=== PATIENT | female | born 1940 | race Caucasian/White ===

== ENCOUNTER 2018-03-15 09:46 | Observation (INO) | payer MEDICARE, BC ==
[2018-03-15 10:48] LABS: #Basophils 0.1 thou/uL (0.0-0.2); #Eosinphils 0.1 thou/uL (0.0-0.7); #Neutrophils 4.4 thou/uL (1.40-6.50); %Basophils 0.9 % (0.0-1.0); %Eosinophils 1.8 % (0.0-10.0); %Lymphocytes 26.2 % (21.0-51.0); %Neutrophils 58.2 % (42.0-75.0); Hemoglobin 13.6 g/dL (12.0-16.0); Mean Corpuscular Hemoglobin 32.1 pg (27.0-31.0); Mean Corpuscular Volume 97.3 fl (81.0-99.0); Mean Platelet Volume 8.9 fL (7.4-10.4); Platelet Count 243 thou/uL (130-400); RBC Distribution Width 11.6 % (11.5-14.5); Red Blood Cell (RBC) Count 4.23 mill/uL (4.20-5.40); White Blood Cell (WBC) Count 7.5 thou/uL (4.8-10.8)
[2018-03-15 10:56] LABS: INR-International Normal Ratio 1.1; Prothrombin Time 13.8 SEC (12.0-14.7)
[2018-03-15 10:57] LABS: PTT 27.5 SEC (22.9-36.1)
[2018-03-15 11:10] LABS: ALT (SGPT) 11 U/L (8-55); AST (SGOT) 16 U/L (5-34); Albumin 4.1 g/dL (3.4-4.8); Alkaline Phosphatase 94 U/L (40-150); Anion Gap 11 mmol/L (10-20); BUN (Urea Nitrogen) 10 mg/dL (9.8-20.1); Bilirubin, Total 0.6 mg/dL (0.2-1.2); Calc. Creatinine Clearance 0 mL/min (70-130); Calcium 8.9 mg/dL (7.8-10.44); Carbon Dioxide 25 mmol/L (23-31); Chloride 103 mmol/L (98-107); Estimated GFR-MDRD 83; Globulin 2.8 g/dL (2.4-3.5); Glucose 96 mg/dL (83-110); Potassium 4.7 mmol/L (3.5-5.1); Protein, Total 6.9 g/dL (6.0-8.3); Sodium 134 mmol/L (136-145)
[2018-03-15 11:15] LABS: Troponin I Less than 0.010 ng/mL (< 0.028)
--- NOTE | 2018-03-15 12:08 | CT ---
NONCONTRAST HEAD CT: HISTORY: Transient ischemic attack. COMPARISON: 05/18/2017 TECHNIQUE: A noncontrast head CT is performed from the skull base to the skull vertex. FINDINGS: No parenchymal hemorrhage. No extraaxial hematoma. No midline shift. The basilar cisterns are espinoza nt. Age appropriate atrophy. Cortical renee white matter differentiation is preserved. The ventricl es and sulci are patent and symmetric. The calvarium is intact. Adequate aeration of the sinuses an d mastoid air cells. Note is made of hyperostosis frontalis interna. IMPRESSION: No acute intracranial process. POS: [facility]
--- NOTE | 2018-03-15 13:13 | PDOC.FPRHP ---
- History of Present Illness Chief Complaint: Altered Mental Status History of Present Illness: Modesta Alexander is a 77 year old F with PMH of HTN and HLD who presented to the ED due to a 3-5 minute episode of altered mental status. She states that she has had an episode like this in the past, approximately 3 months ago, but it only lasted about 30 seconds. She states that the episode this morning occurred when she was making herself breakfast. She was standing and suddenly became "frozen" where she stood. She did not have any weakness in her limbs but she states that she just did not move. She did not have any loss of consciousness, falls, lightheadedness, imbalance. She does state that her vision felt like it got more renee. After about 3-5 min, the episode resolved spontaneously. She did not have any focal weakness, tinnitus, confusion, tongue biting, bowel or bladder incontinence. She denies any recent changes to medications or routine. The episodes were not witnessed by neither her nor her daughter. Denies any recent illnesses. Denies fever, chills, night sweats, chest pain, palpitations before, during, or after episode, n/v/d/ abdominal pain, dysuria. ED Course: In the ED, she had a negative Brain CT. Patient was seen/managed in the ED by Dr. Harris who had concern for TIA. No drugs were administered in the ED. - Allergies/Adverse Reactions Allergies Allergy/AdvReac Type Severity Reaction Status Date / Time ciprofloxacin [From Cipro] Allergy Verified 03/15/18 14:11 hydrochlorothiazide Allergy Verified 03/15/18 14:11 iodine Allergy Verified 01/22/16 11:21 levofloxacin [From Levaquin] Allergy Verified 03/15/18 14:11 Penicillins Allergy Hives Verified 01/22/16 11:21 Sulfa (Sulfonamide Allergy Verified 03/15/18 14:11 Antibiotics) - Home Medications Medication Instructions Recorded Confirmed Type Amlodipine Besylate [amLODIPine 10 mg PO DAILY 01/22/16 03/15/18 History Besylate] Aspirin [Aspirin EC] 81 mg PO BID 01/22/16 03/15/18 History Atenolol 50 mg PO HS 01/22/16 03/15/18 History Atorvastatin Calcium 1 tab PO HS 01/22/16 03/15/18 History Folic Acid [Folvite] 1 tab PO HS 01/22/16 03/15/18 History RABEprazole Sodium [Aciphex] 20 mg PO DAILY 01/22/16 03/15/18 History Ranitidine HCl 150 mg PO HS 01/22/16 03/15/18 History Montelukast Sodium [Singulair] 10 mg PO HS 03/15/18 03/15/18 History - History PMHx: HTN, HLD, GERD, Hypothyroidism PSHx: Ear surgery, Lumpectomy, Hysterectomy FHx: Noncontributory Social: Lives with and daughter is involved with her care - Review of Systems General: denies: fever/chills, weight/appetite/sleep changes, night sweats, fatigue Eyes: reports: vision changes (vision turned renee during episode). denies: eye pain ENT: denies: nasal congestion, rhinorrhea Respiratory: denies: cough, congestion, shortness of breath Cardiovascular: denies: chest pain, palpitation, edema, paroxysmal nocturnal dyspnea Gastrointestinal: denies: nausea, vomiting, diarrhea, constipation, abdominal pain, GI bleeding Genitourinary: denies: incontinence, dysuria, polyuria, discharge Skin: denies: rashes, lesions Musculoskeletal: denies: pain, tenderness, stiffness, swelling Neurological: denies: numbness, syncope, seizure, weakness Psychological: denies: anxiety, depression - Vital signs BP: 130/57 HR: 55 RR: 17 Tmax: 97.6 Pox: 95% on RA Wt: 77 kg - Physical Exam Constitutional: NAD, awake, alert and oriented, well developed HEENT: normocephalic and atraumatic, PERRLA, EOMI, no scleral icterus, grossly normal vision, TM's clear and intact, grossly normal hearing, normal nasal mucosa, MMM, oropharynx clear, good dention Neck: supple, FROM, trachea midline, no LAD, no JVD Chest: no-tender to palpation, no lesions Heart: RRR (borderline bradycardic), normal S1/S2, no murmurs/rubs/gallops, pulses present Lungs: CTAB, no respiratory distress, good air movement, no rales/rhonchi, no wheezing Abdomen: soft, non-tender, bowel sounds present, no masses/distention Musculoskeletal: normal structure, normal tone, ROM grossly normal Neurological: no focal deficit, CN II-XII intact, normal sensation Skin: no rash/lesions, good turgor, capillary refill <2 seconds Heme/Lymphatic: no unusual bruising or bleeding, no purpura, no petechia Psychiatric: normal mood and affect, good judgment and insight, intact recent and remote memory FMR H&P: Results - Labs Result Diagrams: 03/15/18 10:45 03/15/18 10:45 Lab results: WBC 7.5 thou/uL (4.8-10.8) 03/15/18 10:45 Hgb 13.6 g/dL (12.0-16.0) 03/15/18 10:45 Hct 41.2 % (36.0-47.0) 03/15/18 10:45 MCV 97.3 fl (81.0-99.0) 03/15/18 10:45 Plt Count 243 thou/uL (130-400) 03/15/18 10:45 Neutrophils % 58.2 % (42.0-75.0) 03/15/18 10:45 Sodium 134 mmol/L (136-145) L 03/15/18 10:45 Potassium 4.7 mmol/L (3.5-5.1) 03/15/18 10:45 Chloride 103 mmol/L (98-107) 03/15/18 10:45 Carbon Dioxide 25 mmol/L (23-31) 03/15/18 10:45 BUN 10 mg/dL (9.8-20.1) 03/15/18 10:45 Creatinine 0.68 mg/dL (0.6-1.1) 03/15/18 10:45 Glucose 96 mg/dL (83-110) 03/15/18 10:45 Calcium 8.9 mg/dL (7.8-10.44) 03/15/18 10:45 Total Bilirubin 0.6 mg/dL (0.2-1.2) 03/15/18 10:45 AST 16 U/L (5-34) 03/15/18 10:45 ALT 11 U/L (8-55) 03/15/18 10:45 Alkaline Phosphatase 94 U/L (40-150) 03/15/18 10:45 CK-MB (CK-2) 1.0 ng/mL (0-6.6) 03/15/18 10:45 Serum Total Protein 6.9 g/dL (6.0-8.3) 03/15/18 10:45 Albumin 4.1 g/dL (3.4-4.8) 03/15/18 10:45 FMR H&P: A/P - Problem List (1) TIA (transient ischemic attack) Current Visit: Yes Status: Acute (2) HTN (hypertension) Current Visit: Yes Status: Chronic Code(s): I10 - ESSENTIAL (PRIMARY) HYPERTENSION (3) HLD (hyperlipidemia) Current Visit: Yes Status: Chronic Code(s): E78.5 - HYPERLIPIDEMIA, UNSPECIFIED (4) GERD (gastroesophageal reflux disease) Current Visit: Yes Status: Chronic Code(s): K21.9 - GASTRO-ESOPHAGEAL REFLUX DISEASE WITHOUT ESOPHAGITIS (5) Hypothyroidism Current Visit: Yes Status: Chronic Code(s): E03.9 - HYPOTHYROIDISM, UNSPECIFIED - Plan (1) Transient Ischemic Attack: suspicion, rule out - Observation to stroke - Negative Brain CT - No candidate for brain MRI secondary to foreign bodies from ear surgery - Ordered CTA of head and neck - Consulted Neuro, appreciate recommendations - Check orthostatics, tsh, ekg, flp - Continue home aspirin (2) Asymptomatic Bradycardia - Checking 12 lead EKG, TSH, EKG - She does take beta lashae chronically - Denies any pre-syncopal sx, lightheadedness. (3) Hypertension - BP 130/57 at time of admission - continue home medications (4) Hyperlipidemia - Continue home statin (5) Hypothyroidism - Continue home levothyroxine (6) Code Status: FULL CODE Disposition/LOS: Placed on Observation on Stroke Unit, anticipated stay <48 hours. FMR H&P: Upper Level - Pertinent history 77 yr old female with PMH of HTN and HLD who presents for episode of change in her mentation only lasting about 3 minutes. No seizure like activity. No weakness, numbness, no change in speech. She recalls the event and only notices hazy vision during the episode. No one was with her during the episode. - Pertinent findings Gen: NAD, appropriately dressed and normal appearance for age ENT: TM nml, EOMI, PERRL Cardiac: Reg rhythm, bradycardic, no murmurs. Lungs: CTAB Neuro: No focal deficits, CN 2-12 intact Ext: 2+ post tibial, popliteal pulse, and dorsalis pedis bilaterally - Plan Date/Time: 03/15/18 1308 I, [Delfina Valdez], have evaluated this patient and agree with findings/plan as outlined by internal control analyst resident. Pertinent changes/additions are listed here. 77 yr old female here with brief change in mentation 1. Rule out TIA - will order for CTA head/neck - not a candidate for MRI due to ear foreign bodies from surgery - FLP -consult neuro -obs to stroke 2. bradycardia, asymptomatic -pending EKG and TSH -may need to adjust her beta lashae dose. -continuous cardiac monitoring on stroke 3. HTN -cont current home meds 4. HLD -pending FLP 5. hypothyroidism -cont home med Attending Addendum - Attending Addendum Date/Time: 03/15/18 [id number] I personally evaluated the patient and discussed the management with Dr. Valerio/ José Miguel. I agree with the History, Examination, Assessment and Plan documented above with any addition or exceptions noted below. Patient with history of multiple similar instances to events today, but presenting with 3-5 minute episode of her "brain not working". Reports that she felt like her brain "froze" and that she just stared off into the distance. Reports that she had all memory of the event. Reports that she feels like she could move, but she just didn't move. Denies focal numbness, tingling, weakness , headache, vision changes, loss of continence, slurred speech. Reports that after episode resolved she went back to her baseline, though she felt tired. BP at time of event was SBP 160s but then improved after she took her daily ASA and blood pressure medicine to SBP 135. Otherwise reports feeling well. Her exam is overall benign, and lab studies are overtly normal. CT brain shows no evidence of intracranial pathology. Patient to be obs'd in stroke unit overnight due to concern for possible TIA that has now completely resolved. Will obtain CTA head and neck as she is not candidate for MRI. Neurology consult. Wide differential including TIA, Anxiety, Infection, etc that could be contributing to symptoms. Risk stratify and treat accordingly. Continue anti- HTN therapy, ASA, and statin. Anticipate discharge tomorrow.
[2018-03-15 13:35] LABS: Bilirubin Negative (Negative); Blood, Urine Negative (Negative); Clarity CLEAR (Clear); Glucose, Urine (Dipstick) Negative (Negative); Leukocyte Small (Negative); Nitrite Positive (Negative); Protein, Urine (Dipstick) Negative (Neg-Trace); Specific Gravity, Urine 1.007 (1.002-1.036); pH, Urine 7.5 (5.0-9.0)
[2018-03-15 13:37] LABS: Bacteria/HPF Rare-Few HPF (None Seen); Hyaline Casts/LPF 0-3 HYALINE CAST LPF (0-3 Hyaline); Pathc Cast-AUWi Flag 0.14 (0-2.49); RBC/HPF 0-3 HPF (0-3); Squamous Epithelial None Seen HPF (0-3)
[2018-03-15] MEDS ORDERED: Acetaminophen 325 MG TAB PO PRN (14:09)
[2018-03-15 14:12] VITALS: BMI 29.8
[2018-03-15] MEDS: predniSONE 50 MG TAB PO SCH (19:56)
--- NOTE | 2018-03-15 20:28 | CON ---
DATE OF CONSULTATION: 03/15/2018 CONSULTING PHYSICIAN: [facility]. IMPRESSION: "Brain freeze" possibly secondary to variant of migraine. PLAN: The patient can be discharged home. HISTORY OF PRESENT ILLNESS: Ms. Alexander she is a 77-year-old woman who reports having episodes of se nsation that she describes as a brain freeze. It is fairly intense but only lasts a matter of 2 or 3 seconds at most. She had one that seemed to last a little longer than normal and so she decided to come in. She had a CT scan of the brain that was normal. Her lab work was unremarkable. She denies any history of any focal neurologic events. Her EKG showed sinus rhythm. PAST MEDICAL HISTORY: Hypertension. ALLERGIES: IODINE, PENICILLIN. SOCIAL HISTORY: No tobacco or alcohol use. FAMILY HISTORY: Noncontributory and negative for migraine. REVIEW OF SYSTEMS: Otherwise, negative for any alteration of awareness such as seizure activity, mus lily twitching. PHYSICAL EXAMINATION: GENERAL: She is a healthy appearing elderly lady, in no distress. VITAL SIGNS: Stable. She is afebrile. HEENT: Unremarkable. NECK: Supple. EXTREMITIES: No cyanosis. NEUROLOGIC: She is alert and appropriate. Her speech is fluent and clear. Exam is nonfocal. IMAGING: Reviewed. SUMMARY: I do not think that there is any significant neurologic event going on with this pleasant e lderly lady. I think she can be discharged home for outpatient followup.
[2018-03-15] MEDS ORDERED: Montelukast Sodium 10 mg Tablet PO SCH (21:00)
[2018-03-15] MEDS ORDERED: Atorvastatin Calcium 20 MG TAB PO SCH (21:00)
[2018-03-15] MEDS ORDERED: Escitalopram Oxalate 10 mg Tablet PO SCH (21:00)
[2018-03-15] MEDS: Aspirin 81 mg Enteric Coated Tablet PO SCH (22:00)
[2018-03-16] MEDS: predniSONE 50 MG TAB PO SCH ×2 (02:04→08:35)
[2018-03-16 07:34] VITALS: BP 146/65; TEMP 97.5
[2018-03-16 07:45] LABS: Free T4 (Free Thyroxine) 1.78 ng/dL (0.70-1.48)
[2018-03-16] MEDS ORDERED: diphenhydrAMINE 50 MG CAP PO SCH (08:00)
[2018-03-16] MEDS: Aspirin 81 mg Enteric Coated Tablet PO SCH (08:35)
--- NOTE | 2018-03-16 08:37 | PDOC.FM ---
- Subjective Subjective: Mrs. Alexander is seen at bedside this morning. She did great overnight. She has no complaints this morning. She denies any symptoms of weakness, zoning out , headaches, chest pain, palpitations. She has no questions or concerns. - Objective MAR Reviewed: Yes Vital Signs & Weight: Vital Signs (12 hours) Temp Pulse Resp BP Pulse Ox 03/16/18 07:34 97.5 F L 74 16 146/65 H 90 L 03/16/18 04:30 97.4 F L 80 16 168/73 H 91 L 03/15/18 23:24 97.4 F L 63 15 171/75 H 93 L Weight Weight 71.622 kg I&O: 03/15/18 03/16/18 03/17/18 06:59 06:59 06:59 Intake Total 1560 Balance 1560 Result Diagrams: 03/15/18 10:45 03/15/18 10:45 <Julian Valerio - Last Filed: 03/16/18 08:35> - Objective Vital Signs & Weight: Vital Signs (12 hours) Temp Pulse Resp BP Pulse Ox 03/16/18 08:34 74 03/16/18 08:00 97.5 F L 74 16 03/16/18 07:34 97.5 F L 74 16 146/65 H 90 L 03/16/18 04:30 97.4 F L 80 16 168/73 H 91 L 03/15/18 23:24 97.4 F L 63 15 171/75 H 93 L Weight Weight 71.622 kg I&O: 03/15/18 03/16/18 03/17/18 06:59 06:59 06:59 Intake Total 1560 360 Balance 1560 360 Result Diagrams: 03/15/18 10:45 03/15/18 10:45 <Zac Hester - Last Filed: 03/16/18 11:11> Phys Exam - Physical Examination Constitutional: NAD HEENT: moist MMs, sclera anicteric Neck: no JVD, supple, full ROM Respiratory: no wheezing, no rales, no rhonchi, clear to auscultation bilateral Cardiovascular: RRR, no significant murmur Gastrointestinal: soft, non-tender, no distention Musculoskeletal: no edema, pulses present Neurological: non-focal, normal sensation, moves all 4 limbs Psychiatric: normal affect, A&O x 3 Skin: no rash, normal turgor <Julian Valerio - Last Filed: 03/16/18 08:35> Dx/Plan (1) TIA (transient ischemic attack) Status: Acute (2) HTN (hypertension) Code(s): I10 - ESSENTIAL (PRIMARY) HYPERTENSION Status: Chronic (3) HLD (hyperlipidemia) Code(s): E78.5 - HYPERLIPIDEMIA, UNSPECIFIED Status: Chronic (4) GERD (gastroesophageal reflux disease) Code(s): K21.9 - GASTRO-ESOPHAGEAL REFLUX DISEASE WITHOUT ESOPHAGITIS Status: Chronic (5) Hypothyroidism Code(s): E03.9 - HYPOTHYROIDISM, UNSPECIFIED Status: Chronic - Plan Plan: (1) Transient Ischemic Attack: suspicion, rule out - Observation to stroke - Negative Brain CT - No candidate for brain MRI secondary to foreign bodies from ear surgery - CTA of head and neck this morning - Consulted Neuro, appreciate recommendations - Neuro has signed off, does not suspect neuro cause of symptoms - Continue home aspirin - D/c home today (2) Asymptomatic Bradycardia - She does take beta lashae chronically - Denies any pre-syncopal sx, lightheadedness. (3) Hypertension - BP 130/57 at time of admission - continue home medications (4) Hyperlipidemia - Continue home statin (5) Hypothyroidism - Continue home levothyroxine - TSH was low at 0.011 - Patient is asymptomatic, will need follow up with Dr. Soriano outpatient. <Julian Valerio - Last Filed: 03/16/18 08:35> (1) TIA (transient ischemic attack) Status: Acute (2) HTN (hypertension) Code(s): I10 - ESSENTIAL (PRIMARY) HYPERTENSION Status: Chronic (3) HLD (hyperlipidemia) Code(s): E78.5 - HYPERLIPIDEMIA, UNSPECIFIED Status: Chronic (4) GERD (gastroesophageal reflux disease) Code(s): K21.9 - GASTRO-ESOPHAGEAL REFLUX DISEASE WITHOUT ESOPHAGITIS Status: Chronic (5) Hypothyroidism Code(s): E03.9 - HYPOTHYROIDISM, UNSPECIFIED Status: Chronic <Zac Hester - Last Filed: 03/16/18 11:11> Attending Addendum - Attending Addendum Date/Time: 03/16/18 1111 I personally evaluated the patient and discussed the management with Dr. Valerio. I agree with the History, Examination, Assessment and Plan documented above with any addition or exceptions noted below. Patient doing well. No recurrence of neurological symptoms. She has been cleared for discharge by neuro. Awaiting report from CTA and should be able to be discharged home afterwards. <Zac Hester R - Last Filed: 03/16/18 11:11>
[2018-03-16] MEDS ORDERED: Famotidine 20 MG TAB PO SCH (09:00)
[2018-03-16] MEDS ORDERED: Atorvastatin Calcium 20 MG TAB PO SCH (09:00)
[2018-03-16] MEDS ORDERED: Aspirin 81 mg Enteric Coated Tablet PO SCH (09:00)
[2018-03-16] MEDS ORDERED: Atenolol 50 MG TAB PO SCH (09:00)
[2018-03-16] MEDS ORDERED: Amlodipine 10 MG TAB PO SCH (09:00)
[2018-03-16] MEDS ORDERED: Folic Acid 1 MG TAB PO SCH (09:00)
--- NOTE | 2018-03-16 11:05 | CT ---
CT HEAD NONCONTRAST CTA [place] WITH 3D VOLUME RENDERING CTA NECK WITH 3D VOLUME RENDERING: Date: 03/16/18 CLINICAL HISTORY: History of stroke. FINDINGS: noncontrast head CT reveals no evidence of hemorrhage or mass effect. There is chronic ischemic disea se, similar appearing to head CT from previous day. CTA [place] reveals no high grade stenosis or occlusion of the anterior, middle, or posterio r cerebral arteries. Basilar artery is patent. CTA imaging of the neck is somewhat distorted by patient motion, although there is no definitive evid ence for high grade stenosis of either carotid artery at the level of the common or internal segments . There is medial, retropharyngeal course of each carotid artery demonstrated. The imaged bilateral s ubclavian arteries are patent. There is no obvious stenosis or occlusion involving either vertebral a rtery. IMPRESSION: No CTA evidence of significant degree of stenosis or occlusion involving the major arterial system of head and neck. POS: [facility]
--- NOTE | 2018-03-16 17:38 | DIS-2 ---
DATE OF ADMISSION: 03/15/2018 DATE OF DISCHARGE: 03/16/2018 RESIDENT: Julian Valerio MD ADMITTING ATTENDING: Zac Hester MD DISCHARGE ATTENDING: Zac Hester MD CONSULTATIONS: Neurology, Kehinde Hobson M.D. on 03/15/2018. PROCEDURES: 1. Brain CT on 03/15/2018. Impression: No acute intracranial process. 2. CT of the [place] angio with contrast on 03/16/2018, unremarkable CT. No evidence of st enosis of the carotid arteries. No evidence of stenosis or aneurysms and intracranial vasculature. 3. Urine culture showed 15,000-100,000 Escherichia coli. PRIMARY DIAGNOSES: 1. Rule out transient ischemic attack. 2. Hypertension. 3. Hyperlipidemia. 4. Gastroesophageal reflux disease. 5. Hypothyroidism. DISCHARGE MEDICATIONS: 1. Rabeprazole 20 mg p.o. daily. 2. Aspirin 81 mg p.o. b.i.d. 3. Ranitidine 150 mg p.o. at bedtime. 4. Atenolol 50 mg p.o. at bedtime. 5. Amlodipine besylate 10 mg p.o. daily. 6. Folic acid 1 tab p.o. at bedtime. 7. Atorvastatin calcium 20 mg tablet 1 tab p.o. at bedtime. 8. Singulair 10 mg p.o. at bedtime. 9. Escitalopram oxalate 10 mg p.o. at bedtime. HISTORY OF PRESENT ILLNESS AND HOSPITAL COURSE: Modesta Alexander is a 77-year-old female with past medical history of hypertension, hyperlipidemia and hypothyroidism who presented to the ED with a 3-5 minute episode of altered mental status. She states that she has had episodes like this several dex es in the past, last one was approximately 3 months ago, but those had only lasted a few seconds and this one on the day of admission lasted significantly longer. She stated that the episode occurred w hile she was making breakfast. She was standing and suddenly became frozen where she stood. She did not have any weakness in her limbs. States that she just could not move. She did not have any loss of consciousness, no falls, no lightheadedness or imbalance. She states that her vision felt like i t became more renee after about 3-5 minutes episode, resolved spontaneously. She did not have any res idual focal weakness. No tinnitus. No confusion, tongue biting, bowel or bladder incontinence. She denied any recent changes to medications or daily routine. None of these episodes have been witness ed by her or her daughter who was present in the ED. No recent illnesses. She denies any fe christel, chills, night sweats, chest pain, palpitations before, during or after the episode. No nausea, vomiting, diarrhea or abdominal pain. No dysuria or urinary frequency or lower abdominal pain. In [facility] ED, she had a negative brain CT. The patient was seen and managed in the ED by Dr. Harris who had concern for TIA and decided to admit her for TIA workup. No drugs were administered in the ED. The patient was placed on observation to stroke. She is not a candidate for brain MRI secondary to fore ign bodies from ear surgery. Ordered CT of the head and neck and neuro was consulted. The patient w as monitored overnight. She did well. She is asymptomatic completely throughout the night. Dr. Nesha aguillon saw the patient on 03/15/2018. His impression was this was secondary to a variant of migraine. He did not think that there is any significant neurological event going on and recommend that she be discharged home and have outpatient followup. The patient was cleared for discharge on 03/16/2018. She had a normal CT of the [place] angio with contrast and only other significant labs were a TSH of 0.0115, a free T4 of 1.78 and a free T3 of 3.2. The patient is managed outpatient by Dr. Loreta sommers. She had a normal fasting lipid panel. Her labs are otherwise unremarkable. She did have a cl nina catch urine that had positive nitrites, leukocyte esterase and 7-10 white blood cells. Rare to f ew urine bacteria were seen. Urine culture was done and found 15,000-100,000 E. coli, but the patien t was asymptomatic. Therefore, we did not deem it necessary to treat asymptomatic bacteriuria in an elderly patient. If she develops symptoms, recommend seeing her primary care provider and continuing treatment at that time. DISPOSITION: Stable. The patient will do work. Symptoms were not likely secondary to transient isc hemic attack. She has been cleared by Neurology. She should have a normal scheduled followup appoin tments with Dr. Soriano. DISCHARGE INSTRUCTIONS: Location, home. Diet, heart healthy diet. Activity, as tolerated. Follow up with Dr. Soriano in 1-2 weeks for routine hospital followup and management of hypothyroidism.
== END 2018-03-16 11:58 | disposition home or self-care (01) ==
LOC: ERS 09:46 → 2SE 12:38
PROVIDERS: ADMIT Student in an Organized Health Care Education/Training Program; ATTEND Student in an Organized Health Care Education/Training Program
DX: R41.82 Altered mental status, unspecified (principal); I10 Essential (primary) hypertension; E78.5 Hyperlipidemia, unspecified; K21.9 Gastro-esophageal reflux disease without esophagitis; E03.9 Hypothyroidism, unspecified; R00.1 Bradycardia, unspecified; Z88.0 Allergy status to penicillin; Z88.1 Allergy status to other antibiotic agents; Z88.2 Allergy status to sulfonamides; Z88.8 Allergy status to other drugs, medicaments and biological substances; Z91.041 Radiographic dye allergy status; Z79.82 Long term (current) use of aspirin; Z79.899 Other long term (current) drug therapy
CPT/HCPCS: 70450; 70496; 70498; 80053; 80061; 82553; 84439; 84443; 84481; 84484; 85025; 85610; 85730; 87077; 87086; 87186; 93005; 99285; G0378; 36415; 81003; 81015

== ENCOUNTER 2019-05-19 10:01 | Observation (INO) | payer MEDICARE, BC ==
[2019-05-19 10:26] LABS: #Basophils 0.1 thou/uL (0.0-0.2); #Eosinphils 0.3 thou/uL (0.0-0.7); #Lymphocytes 1.7 thou/uL (1.20-3.40); #Monocytes 0.8 thou/uL (0.11-0.59); #Neutrophils 4.6 thou/uL (1.40-6.50); %Basophils 1.4 % (0.0-1.0); %Eosinophils 4.4 % (0.0-10.0); %Lymphocytes 22.3 % (21.0-51.0); %Monocytes 10.7 % (0.0-10.0); %Neutrophils 61.1 % (42.0-75.0); Hemoglobin 12.8 g/dL (12.0-16.0); Mean Corpuscular HGB CONC 33.1 g/dL (32.0-36.0); Mean Corpuscular Hemoglobin 32.1 pg (27.0-31.0); Mean Platelet Volume 9.1 fL (7.4-10.4); Platelet Count 246 thou/uL (130-400); RBC Distribution Width 12.1 % (11.5-14.5); White Blood Cell (WBC) Count 7.5 thou/uL (4.8-10.8)
--- NOTE | 2019-05-19 10:30 | RAD ---
XR Chest 1 View Portable HISTORY: Headache, hypotension and bradycardia COMPARISON: 12/17/2012 FINDINGS: The heart is enlarged. There is continued elevation the right hemidiaphragm. The aorta is t ortuous. No lobar consolidation, pneumothoraces, jocelyne pulmonary edema or pleural effusions are seen.
[2019-05-19 10:51] LABS: ALT (SGPT) 10 U/L (8-55); AST (SGOT) 16 U/L (5-34); Albumin 4.2 g/dL (3.4-4.8); Alkaline Phosphatase 97 U/L (40-150); Anion Gap 13 mmol/L (10-20); BUN (Urea Nitrogen) 13 mg/dL (9.8-20.1); Bilirubin, Total 0.5 mg/dL (0.2-1.2); Calc. Creatinine Clearance 0 mL/min (70-130); Calcium 9.4 mg/dL (7.8-10.44); Carbon Dioxide 28 mmol/L (23-31); Chloride 100 mmol/L (98-107); Estimated GFR-MDRD 79; Glucose 102 mg/dL (83-110); Potassium 4.6 mmol/L (3.5-5.1); Protein, Total 7.2 g/dL (6.0-8.3); Sodium 136 mmol/L (136-145)
--- NOTE | 2019-05-19 12:15 | PDOC.FPRHP ---
- History of Present Illness Chief Complaint: Presyncope History of Present Illness: Mrs. Alexander is a pleasant 78yo CF with h/o HTN, HLD, Anxiety who presented for presyncopal event. Patient states she was sitting in her recliner this morning at about 0700 when she experienced a "funny feeling" in her head described as a lightheadedness. She denies any vertigo, nausea/vomiting, CP, SOB, pain, focal neural deficits either during or after the event, or headache. She states the event lasted a few minutes and was very similar to past episodes, one of which she was admitted for, and last event a few months ago. She states that after the event was over, she had some general tiredness, but no focal neural deficits or pains. She states she ate breakfast this morning and took all her meds as usual. No recent illnesses, sick contacts, or medication changes. ED Course: Noted to have sinus sharita on EKG. CXR, CBC, and CMP ordered. Admitted for symptomatic bradycardia. - Allergies/Adverse Reactions Allergies Allergy/AdvReac Type Severity Reaction Status Date / Time ciprofloxacin [From Cipro] Allergy Verified 03/15/18 14:11 hydrochlorothiazide Allergy Verified 03/15/18 14:11 iodine Allergy Verified 01/22/16 11:21 levofloxacin [From Levaquin] Allergy Verified 03/15/18 14:11 Penicillins Allergy Hives Verified 01/22/16 11:21 Sulfa (Sulfonamide Allergy Verified 03/15/18 14:11 Antibiotics) - Home Medications Medication Instructions Recorded Confirmed Type Amlodipine Besylate [amLODIPine 10 mg PO DAILY 01/22/16 05/19/19 History Besylate] Aspirin [Aspirin EC] 81 mg PO BID 01/22/16 05/19/19 History Atorvastatin Calcium 1 tab PO HS 01/22/16 05/19/19 History Folic Acid [Folvite] 1 tab PO HS 01/22/16 05/19/19 History Ranitidine HCl 150 mg PO HS 01/22/16 05/19/19 History Escitalopram Oxalate 10 mg PO HS 03/15/18 05/19/19 History Montelukast Sodium [Singulair] 10 mg PO HS 03/15/18 05/19/19 History Levothyroxine Sodium [Synthroid] 175 mcg PO DAILY 05/19/19 05/19/19 History - History PMHx: Thyroid Ca s/p Radiation in 1980s. Hypothyroidism, GERD, HLD, HTN, Anxiety PSHx: Thyroidectomy, L heel surg, hysterectomy, tonsilectomy, right breast lumpectomy. Ear surgery. FHx: Father of [place] in 50s. No other known cardiac family history. Social: No alcohol, drugs, or tobacco. Lives at home along currently as is in a senior living. 4 grown children living nearby who assist in care. - Review of Systems General: denies: fever/chills, weight/appetite/sleep changes, night sweats, fatigue Eyes: denies: vision changes ENT: denies: nasal congestion, rhinorrhea Respiratory: denies: cough, congestion, shortness of breath, exercise intolerance Cardiovascular: denies: chest pain, palpitation, edema, paroxysmal nocturnal dyspnea, orthopnea Gastrointestinal: denies: nausea, vomiting, diarrhea, constipation, abdominal pain, GI bleeding Genitourinary: denies: incontinence, dysuria, polyuria Skin: denies: rashes, lesions Musculoskeletal: denies: pain, tenderness, stiffness Neurological: reports: other (lightheadedness as described in HPI). denies: numbness, syncope, seizure, weakness - Vital signs BP: 128/71 HR: 53 RR: Tmax: 98 Pox: 96% on RA Wt: 68kg - Physical Exam Constitutional: NAD, awake, alert and oriented, well developed HEENT: PERRLA, EOMI, MMM, oropharynx clear Neck: supple, trachea midline Chest: no-tender to palpation Heart: normal S1/S2, pulses present, other (Aortic, systolic ejection murmur grade II. Bradycardiac with regular rhythm.) Lungs: CTAB, no respiratory distress, good air movement, no rales/rhonchi, no wheezing Abdomen: soft, non-tender, bowel sounds present, no masses/distention, no hernias Musculoskeletal: normal structure, normal tone, ROM grossly normal Neurological: no focal deficit, CN II-XII intact, normal sensation Skin: no rash/lesions Heme/Lymphatic: no unusual bruising or bleeding Psychiatric: normal mood and affect, good judgment and insight, intact recent and remote memory FMR H&P: Results - Labs Result Diagrams: 05/19/19 10:18 05/19/19 10:18 Lab results: WBC 7.5 thou/uL (4.8-10.8) 05/19/19 10:18 Hgb 12.8 g/dL (12.0-16.0) 05/19/19 10:18 Hct 38.8 % (36.0-47.0) 05/19/19 10:18 MCV 97.0 fL (78.0-98.0) 05/19/19 10:18 Plt Count 246 thou/uL (130-400) 05/19/19 10:18 Neutrophils % 61.1 % (42.0-75.0) 05/19/19 10:18 Sodium 136 mmol/L (136-145) 05/19/19 10:18 Potassium 4.6 mmol/L (3.5-5.1) 05/19/19 10:18 Chloride 100 mmol/L (98-107) 05/19/19 10:18 Carbon Dioxide 28 mmol/L (23-31) 05/19/19 10:18 BUN 13 mg/dL (9.8-20.1) 05/19/19 10:18 Creatinine 0.71 mg/dL (0.6-1.1) 05/19/19 10:18 Glucose 102 mg/dL (83-110) 05/19/19 10:18 Calcium 9.4 mg/dL (7.8-10.44) 05/19/19 10:18 Total Bilirubin 0.5 mg/dL (0.2-1.2) 05/19/19 10:18 AST 16 U/L (5-34) 05/19/19 10:18 ALT 10 U/L (8-55) 05/19/19 10:18 Alkaline Phosphatase 97 U/L (40-150) 05/19/19 10:18 Serum Total Protein 7.2 g/dL (6.0-8.3) 05/19/19 10:18 Albumin 4.2 g/dL (3.4-4.8) 05/19/19 10:18 - EKG Interpretation EKG: Sinus sharita, rate 56. right axis deviation. VT 202, QTC 426. No acute T wave or ST changes. - Radiology Interpretation Chest x-ray Status: image reviewed by me, report reviewed by me (Cardiomegaly. Raised right hemidiaphragm unchanged from previous. Toruous aorta. No consolidation, effusions. No acute changes from previous CXR.) FMR H&P: A/P - Problem List (1) Symptomatic sinus bradycardia Current Visit: Yes Status: Acute Code(s): R00.1 - BRADYCARDIA, UNSPECIFIED (2) GERD (gastroesophageal reflux disease) Current Visit: No Status: Chronic Code(s): K21.9 - GASTRO-ESOPHAGEAL REFLUX DISEASE WITHOUT ESOPHAGITIS (3) HLD (hyperlipidemia) Current Visit: No Status: Chronic Code(s): E78.5 - HYPERLIPIDEMIA, UNSPECIFIED (4) HTN (hypertension) Current Visit: No Status: Chronic Code(s): I10 - ESSENTIAL (PRIMARY) HYPERTENSION (5) Hypothyroidism Current Visit: No Status: Chronic Code(s): E03.9 - HYPOTHYROIDISM, UNSPECIFIED - Plan Mrs. Alexander is a 78yo CF with h/o HTN, HLD, and anxiety who presents for symptomatic bradycardia. 1. Symptomatic bradycardia - Sxs lasted a few minutes. Rate in 50s in ED without sxs. Similar to prior episodes in past, last a few months ago. Previously admitted for similar sxs with questionable TIA with workup negative. No home medications with SE of bradycardia. - Will admit to Tele Obs and monitor overnight - Need for possible pacemaker and cardio consult was discussed with patient, and she is unsure if she wants to pursue that course of treatment as of now. R/B /A discussed with patient and plan to currently monitor with possible consult in AM if sxs return overnight. - CBC and CMP unremarkable, will check Mg, Phos, BNP, and Vit D - Will check orthostatic vitals - Consult PT/OT for general deconditioning appreciate recs 2. Systolic Ejection Murmur - Along with episode of lightheadness, will order Echo for further evaluation 3. Hypothyroidism - Will check TSH. Continue home synthroid 4. HTN - Stable. Continue home Norvasc 5. HLD/CV risk stratification - Continue home Atorvastatin and ASA 6. GERD - Stable. Continue home Zantac 7. Anxiety - Stable. Continue home Lexapro Diet: Heart Healthy VTE: Lovenox 30 Code: Full Disposition/LOS: Pending tele obs overnight, echo, and possible cardio consult. Anticipate hospitalization <48hrs. FMR H&P: Upper Level - Pertinent history 78 yo female who presents for evaluation of pre-syncope episode around 0700 today. Patient reports she had a normal morning and was sitting in her chair when her "head went crazy." She denies vertigo symptoms. She reports this has happened previously, but she was never evaluated at those previous times. Patient denied chest pain, sob, dehydration, n/v/d, urinary symptoms, or other acute changes in her health. Please see internal controls manager note above for further information. Physical Exam: General: NAD, appears stated age Head: Atraumatic, normocephalic CV: bradycardic rate, regular rhythm. Systolic ejection murmur noted Respiratory: CTA bilaterally Abdomen: Soft, nontender, BS normoactive Extremities: Moves all four equally, no edema Neuro: No focal deficits, CN 2-12 grossly intact Psych: A&Ox3 - Plan Date/Time: 05/19/19 1215 I, Aníbal Barrientos MD, have evaluated this patient and agree with findings/ plan as outlined by internal controls manager resident. Pertinent changes/additions are listed here. 1. Symptomatic bradycardia - Continuous cardiac monitoring - Evaluate medications for possible causes - Order Mg, BNP and TSH - ECHO ordered as well - Counseled on possible need of pacemaker placement and patient reports she would need time to think about it. - Consider Cardiology consultation if symptoms persist or pulse continues to drop. 2. Hypothyroid - Check TSH - Continue home meds if appropriate 3. HTN - Continue amlodipine - Unlikely cause of bradycardia 4. GERD - Continue home meds 5. HLD - Continue home meds CODE STATUS: FULL CODE PCP: Dr. Soriano Disposition: Stable, will admit to Telemetry observation for further evaluation. Addendum - Attending - Attending Attestation Date/Time: 05/19/19 4125 I personally evaluated the patient and discussed the management with Dr. Blankenship/ Il[place]. I agree with the History, Examination, Assessment and Plan documented above with any addition or exceptions noted below. Patient here for a few minute "spell" of feeling off and disoriented. She had a previous event similar to this that resulted in observation a few months ago for TIA workup. She immediately returned to baseline. Presented to ED where she was found to be bradycardic to the 40s. Patient reports to me that she takes Amlodipine and Atenolol for BP, which will need to be confirmed. She has a benign exam, and her HR is currently in the mid 50s, similar to previous hospitalization. Labs are stable from previous admission. She will be observed for possible symptomatic bradycardia. Monitor on tele. Decrease or discontinue atenolol if she is truly on this medication as this could be causing her symptoms. Further mgmt including Cardiology consult pending how she does overnight. Jimmy Hester MD
[2019-05-19 13:52] LABS: Troponin I 0.015 ng/mL (< 0.028)
[2019-05-19] MEDS ORDERED: Acetaminophen 325 MG TAB PO PRN (13:58)
[2019-05-19 14:03] VITALS: BMI 28.0
[2019-05-19 16:50] LABS: Troponin I Less than 0.010 ng/mL (< 0.028)
[2019-05-19 17:04] LABS: Vitamin D, 25 Hydroxy 28.3 ng/ml (> 30.0)
[2019-05-19 17:06] LABS: Magnesium 1.9 mg/dL (1.6-2.6); Phosphorus 3.6 mg/dL (2.3-4.7)
[2019-05-19] MEDS: Aspirin 81 mg Enteric Coated Tablet PO SCH (20:49)
[2019-05-19] MEDS: Famotidine 20 MG TAB PO SCH (20:50)
[2019-05-19] MEDS ORDERED: Montelukast Sodium 10 mg Tablet PO SCH (21:00)
[2019-05-19] MEDS ORDERED: Escitalopram Oxalate 10 mg Tablet PO SCH (21:00)
[2019-05-19] MEDS ORDERED: Folic Acid 1 MG TAB PO SCH (21:00)
[2019-05-19] MEDS ORDERED: Atorvastatin Calcium 20 MG TAB PO SCH (21:00)
[2019-05-20] MEDS ORDERED: hydrALAZINE 20 MG/ML VIAL SLOW IVP PRN (04:50)
[2019-05-20] MEDS ORDERED: Amlodipine 10 MG TAB PO SCH ×2 (05:00→09:00)
--- NOTE | 2019-05-20 05:43 | PDOC.FM ---
- Subjective Subjective: Mrs. Alexander is doing well this morning without any return of lightheadness or sxs similar to presentation. She does endorse an episode where she woke up from sleep, diaphoretic and shaking, but attributes this to her increase anxiety because of being in the hospital while her is in the custodial and she is worried about him. She denies any CP, SOB, fevers/chills, pain of any kind, MOSQUERA, or lightheadedness. She has ambulated without difficulty and been tolerating PO well. She is eager to go home today. - Objective MAR Reviewed: Yes Vital Signs & Weight: Vital Signs (12 hours) Temp Pulse Resp BP Pulse Ox 05/20/19 04:50 72 05/20/19 04:25 72 188/82 H 05/20/19 04:05 97.8 F 73 16 202/85 H 95 05/19/19 23:21 98.8 F 62 12 164/72 H 93 L 05/19/19 19:44 98.0 F 59 L 16 158/71 H 93 L Weight Weight 67.302 kg I&O: 05/18/19 05/19/19 05/20/19 06:59 06:59 06:59 Intake Total 740 Output Total 650 Balance 90 Result Diagrams: 05/19/19 10:18 05/19/19 10:18 Additional Labs: Vit D 28.3, TSH 0.0376, T4 1.48, BNP 348.4 EKG Reviewed by me: Yes (Tele: Sinus bradycardia in 50s-60s. NM interval midly prolonged at ~200.) Phys Exam - Physical Examination Constitutional: NAD HEENT: PERRLA, moist MMs Neck: supple Respiratory: no wheezing, no rales, no rhonchi, clear to auscultation bilateral Cardiovascular: RRR, no rub Grade II systolic ejection murmur best heard at the base. Gastrointestinal: soft, no distention Musculoskeletal: no edema, pulses present Neurological: non-focal, normal sensation, moves all 4 limbs Psychiatric: normal affect, A&O x 3 Deviation from normal: States she is a little anxious this morning and worried about her . Skin: no rash Dx/Plan (1) Symptomatic sinus bradycardia Code(s): R00.1 - BRADYCARDIA, UNSPECIFIED Status: Acute (2) GERD (gastroesophageal reflux disease) Code(s): K21.9 - GASTRO-ESOPHAGEAL REFLUX DISEASE WITHOUT ESOPHAGITIS Status: Chronic (3) HLD (hyperlipidemia) Code(s): E78.5 - HYPERLIPIDEMIA, UNSPECIFIED Status: Chronic (4) HTN (hypertension) Code(s): I10 - ESSENTIAL (PRIMARY) HYPERTENSION Status: Chronic (5) Hypothyroidism Code(s): E03.9 - HYPOTHYROIDISM, UNSPECIFIED Status: Chronic (6) Vitamin D deficiency Code(s): E55.9 - VITAMIN D DEFICIENCY, UNSPECIFIED Status: Acute - Plan Plan: Mrs. Alexander is a pleasant 78yo CF with h/o HTN, HLD, and anxiety who presents for symptomatic bradycardia. 1. Symptomatic bradycardia - Intermittent sxs. No acute events overnight on Tele. - CBC and lytes unremarkable. Orthostatics positive. Discussed falls risk and need to get up slowly upon rising from bed and sitting. - Consult PT/OT for general deconditioning, appreciate recs - Cards consult with evaluation for pacemaker discussed with patient, and at this time, due to no return of sxs and increase of HR while admitted, will defer for now with possible OP f/u. R/B/A discussed with patient. - Pt initially stated her Atenolol had been stopped but now states she was taking her Atenolol. Discussed with patient that this medication can contribute to her bradycardia and recommend discontinuation. 2. Grade II Systolic Ejection Murmur - Along with episode of lightheadness, Echo pending for today. 3. Vit D def - Vit D lv 28.3. Will provide supplementation. 4. Hypothyroidism - Continue home synthroid. TSH 0.0376, T4 1.48. 5. HTN - hypertensive overnight with SBP 170-200 requiring prn Hydralazine. Will add Lisinopril 10mg to regime. - Pt states she was on Atenolol for BP. Will hold and recommend discontinuation 2/2 contribution to bradycardia. 6. HLD/CV risk stratification - Continue home Atorvastatin and ASA 7. GERD - Stable. Continue home Zantac 8. Anxiety - Stable. Continue home Lexapro Diet: Heart Healthy VTE: Lovenox 30 Code: Full Disposition/LOS: Pending echo today and continued clinical course, will plan for PM discharge. Addendum - Attending - Attending Attestation Date/Time: 05/20/19 2322 I personally evaluated the patient and discussed the management with Dr. Curtis. I agree with the History, Examination, Assessment and Plan documented above with any addition or exceptions noted below. Patient here with concern for symptomatic bradycardia. She had no further events overnight, will need to review telemetry data. She does feel "weird" this morning after receiving hydralazine IV for elevated BP. Will work to get BP under better control today. If no major bradycardia on tele, may be stable for d/c with outpatient follow up later today, or she may need more time here to modulate her BP meds.
[2019-05-20] MEDS ORDERED: Levothyroxine 175 MCG TAB PO SCH (06:00)
[2019-05-20] MEDS: Aspirin 81 mg Enteric Coated Tablet PO SCH (08:59)
[2019-05-20] MEDS ORDERED: Lisinopril 10 MG TAB PO SCH (09:00)
[2019-05-20] MEDS ORDERED: Enoxaparin Sodium 30 MG/0.3 ML SYRINGE SC SCH (09:00)
[2019-05-20] MEDS: Famotidine 20 MG TAB PO SCH (09:00)
[2019-05-20 12:47] VITALS: TEMP 97.5
[2019-05-20 13:01] VITALS: BP 145/67
[2019-05-21] MEDS ORDERED: Amlodipine 10 MG TAB PO SCH (09:00)
--- NOTE | 2019-05-21 11:40 | DIS ---
DATE OF ADMISSION: 05/19/2019 DATE OF DISCHARGE: 05/20/2019 RESIDENT: Noman Curtis MD. ADMITTING ATTENDING: Zac Hester MD DISCHARGE ATTENDING: Zac Hester MD CONSULT: None. PROCEDURES PERFORMED: 1. Chest x-ray - cardiomegaly. Continued elevation of the right hemidiaphragm. The aorta is tortuous. This is unchanged from previous chest x-rays. No lobar consolidation, pulmonary edema, or pleural effusion seen. 2. Echocardiogram - ejection fraction estimated at 55% to 60%. Suggested diastolic dysfunction. Mitral annular calcification present and moderately elevated pulmonary artery pressure. PRIMARY DIAGNOSIS: Symptomatic bradycardia secondary to beta lashae use. SECONDARY DIAGNOSES: 1. Hypothyroidism. 2. Hypertension. 3. Hyperlipidemia. 4. Gastroesophageal reflux disease. 5. Anxiety. DISCHARGE MEDICATIONS: 1. Vitamin D3 of 1000 units p.o. daily. 2. Lisinopril 10 mg p.o. daily. 3. Aspirin 81 mg p.o. b.i.d. 4. Ranitidine 150 mg p.o. at bedtime. 5. Norvasc 10 mg p.o. daily. 6. Folic acid 1 mg p.o. at bedtime. 7. Atorvastatin 20 mg p.o. at bedtime. 8. Singulair 10 mg p.o. at bedtime. 9. Lexapro 10 mg p.o. at bedtime. 10. Levothyroxine 175 mcg p.o. daily. DISCONTINUED MEDICATIONS: Atenolol 50 mg. HISTORY OF PRESENT ILLNESS AND HOSPITAL COURSE: Ms. Alexander is a pleasant 78-year-old female with history of hypertension, hyperlipidemia, and anxiety, who presented for a presyncopal event. The patient stated that she was sitting in the recliner on the morning of admission when she experienced a funny feeling in her head described as a lightheadedness. Denied any vertigo, nausea, vomiting, chest pain, shortness of breath, pain of any kind, or focal neuro deficits during or after the event. She was admitted a few months ago for similar symptoms, and at that time, she was worked up for TIA, and all workup was negative. She stated that after the event was over, she experienced generalized weakness, but no focal neuro deficits or pain. She stated that she ate breakfast and took her medications as usual a few hours prior to this event. She has had no recent illnesses, sick contacts, or medication changes. In the ED, she was found to have sinus bradycardia on the EKG with NC interval of 202. Chest x-rays and lab work were all within normal limits, and she was admitted for symptomatic bradycardia for further evaluation and management. Once onto the floor, her heart rate improved to the 60s to 70s, and she had no return of symptoms. Telemetry strip was monitored overnight without any acute events. Orthostatic vitals were checked, which were positive, and thus we discussed the need for general fall precautions such as rising slowing from sitting and from lying down. Home medications were discussed with the patient, and initially, she stated that she was not taking atenolol, but later stated that she had been taking her atenolol at home. It was discussed with the patient that this could contribute to her bradycardia, and thus this medication should be discontinued. Her blood pressure was elevated with systolic blood pressure in the 160s, and thus lisinopril 10 mg was added to her medication regimen. She tolerated the addition of this medication well without side effects. An echocardiogram was ordered with results as above. It was discussed with the patient the possible need for Cardiology consult if symptoms should become persistent. The patient states that at this time she is not interested in pacemaker placement or Cardiology consult, but if symptoms do recur or become persistent, she will follow up with a veneer grader as outpatient. Chronic medical conditions were treated with home medications. Her vitamin D level was noted to be low at 28.3 , and thus supplementation was started. At the time of discharge, the patient was stable and at her baseline without any acute events and eager for discharge. The patient's discharge plan as above was discussed with the patient. She voiced agreement and understanding of the said plan. The patient was then discharged to follow up with primary care doctor within in 1 week and veneer grader as needed. DISPOSITION: Stable. DISCHARGE INSTRUCTIONS: 1. Location: Home. 2. Diet: Heart-healthy. 3. Activity: As tolerated. Orthostatic precautions. 4. Followup: The patient is to follow up with her primary care physician within 1 week and seek outpatient Cardiology if symptoms should return or become persistent. Job ID: [id number] [facility]
== END 2019-05-20 15:15 | disposition home or self-care (01) ==
LOC: ERS 10:01 → 2SW 12:00
PROVIDERS: ADMIT Student in an Organized Health Care Education/Training Program; ATTEND Student in an Organized Health Care Education/Training Program
DX: R00.1 Bradycardia, unspecified (principal); R55 Syncope and collapse; I10 Essential (primary) hypertension; E03.9 Hypothyroidism, unspecified; E78.5 Hyperlipidemia, unspecified; K21.9 Gastro-esophageal reflux disease without esophagitis; F41.9 Anxiety disorder, unspecified; I51.7 Cardiomegaly; Z79.82 Long term (current) use of aspirin; Z79.899 Other long term (current) drug therapy; Z88.0 Allergy status to penicillin; Z88.1 Allergy status to other antibiotic agents; Z88.2 Allergy status to sulfonamides; Z88.8 Allergy status to other drugs, medicaments and biological substances; Z91.041 Radiographic dye allergy status
CPT/HCPCS: 71045; 82306; 82962; 83735; 83880; 84100; 84439; 84484 ×2; 93005; 93306; 96374; 97139 ×4; 99285; G0378 ×2; 36415; 36416; 80053; 84443; 85025; J0360; J1650

== ENCOUNTER 2020-02-12 11:02 | Outpatient (CLI) | payer MEDICARE, BC ==
--- NOTE | 2020-02-12 11:55 | RAD ---
LEFT WRIST 3 VIEWS: Date: 02/12/2020 HISTORY: Wrist pain. COMPARISON: 05/18/2017. FINDINGS: Severe degenerative change at the first carpometacarpal joint is again noted. There is deformity of the distal radius involving the radial styloid. This has a similar appearance t o the prior exam at which time a radial fracture was described. The slight deformity does involve the articular surface, but probably represents old injury. There is widening of the scapholunate space which is similar to the prior exam indicating ligamentous injury. There is narrowing of the radiocarpal joint which is stable. There is calcification at the triangular fibrocartilage which is stable. IMPRESSION: Chronic findings at the wrist are described above and appear stable from the prior exam. POS: [facility]
== END 2020-02-12 11:03 | disposition home or self-care (01) ==
LOC: BICRAD 11:02
PROVIDERS: ATTEND Family Medicine
DX: M25.532 Pain in left wrist (principal); M21.932 Unspecified acquired deformity of left forearm; M19.032 Primary osteoarthritis, left wrist; M25.832 Other specified joint disorders, left wrist

== ENCOUNTER 2020-08-26 08:12 | Outpatient (CLI) | payer MEDICARE, BC ==
--- NOTE | 2020-08-26 08:24 | RAD ---
EXAM: XR Foot Lt 3 View STANDARD PROVIDED CLINICAL HISTORY: Pain COMPARISON: None There is a poorly defined appearance to the a focal area of the medial navicular cortex with an osseo us fragment noted immediately medial to the talar head, which may reflect posterior tibialis and insertional avulsion injury. Suture anchors are seen in the posterior calcaneus. Hallux valgus with b union formation. Degenerative changes at the first TMT and first MTP joints. IMPRESSION: 1. Possible navicular avulsion fracture. 2. Hallux valgus and degenerative change.
== END 2020-08-26 08:13 | disposition home or self-care (01) ==
LOC: RAD-FRANK 08:12
PROVIDERS: ATTEND Nurse Practitioner Family
DX: M79.672 Pain in left foot (principal); M20.12 Hallux valgus (acquired), left foot; M19.072 Primary osteoarthritis, left ankle and foot

== ENCOUNTER 2021-07-02 10:38 | Outpatient (CLI) | payer MEDICARE, BC | END 2021-07-02 10:39 | disposition home or self-care (01) | LOC: BICULT 10:38 | PROVIDERS: ATTEND Nurse Practitioner Family | DX: N18.2 Chronic kidney disease, stage 2 (mild) (principal); R79.89 Other specified abnormal findings of blood chemistry; K76.89 Other specified diseases of liver; K80.20 Calculus of gallbladder without cholecystitis without obstruction; L92.9 Granulomatous disorder of the skin and subcutaneous tissue, unspecified | CPT/HCPCS: 93975 ==

== ENCOUNTER 2021-07-31 09:59 | Outpatient (CLI) | payer BC, MEDICARE | END 2021-07-31 10:00 | disposition home or self-care (01) | LOC: BICMAMMO 09:59 | PROVIDERS: ATTEND Nurse Practitioner Family | DX: Z13.820 Encounter for screening for osteoporosis (principal); N95.9 Unspecified menopausal and perimenopausal disorder; M81.0 Age-related osteoporosis without current pathological fracture; M85.852 Other specified disorders of bone density and structure, left thigh | CPT/HCPCS: 77080 ==

== ENCOUNTER 2021-08-19 08:42 | Outpatient (CLI) | payer MEDICARE, BC ==
[2021-08-19] MEDS ORDERED: Iopamidol 370 76% 100 ML VIAL ONE (16:04)
== END 2021-08-19 08:43 | disposition home or self-care (01) ==
LOC: CT 08:42
PROVIDERS: ATTEND Physician Assistant Medical
DX: R74.8 Abnormal levels of other serum enzymes (principal); R93.2 Abnormal findings on diagnostic imaging of liver and biliary tract; K80.20 Calculus of gallbladder without cholecystitis without obstruction; I51.7 Cardiomegaly; I31.3 Pericardial effusion (noninflammatory); K76.89 Other specified diseases of liver; K59.00 Constipation, unspecified; K57.30 Diverticulosis of large intestine without perforation or abscess without bleeding; I70.90 Unspecified atherosclerosis
CPT/HCPCS: 74170; 82565

== ENCOUNTER 2021-10-12 10:07 | Inpatient (IN) | payer MEDICARE, BC ==
[2021-10-12] MEDS ORDERED: Diltiazem 125 MG/25 ML ONE (10:18)
[2021-10-12 11:09] LABS: #Basophils 0.1 thou/uL (0.0-0.2); #Eosinphils 0.1 thou/uL (0.0-0.7); #Lymphocytes 1.3 thou/uL (1.20-3.40); #Monocytes 0.9 thou/uL (0.11-0.59); #Neutrophils 6.8 thou/uL (1.40-6.50); %Basophils 0.6 % (0.0-1.0); %Eosinophils 0.8 % (0.0-10.0); %Lymphocytes 14.1 % (21.0-51.0); %Monocytes 10.3 % (0.0-10.0); %Neutrophils 74.2 % (42.0-75.0); Mean Corpuscular HGB CONC 34.3 g/dL (32.0-36.0); Mean Corpuscular Hemoglobin 33.9 pg (27.0-31.0); Mean Corpuscular Volume 99.1 fL (78.0-98.0); Mean Platelet Volume 8.2 fL (7.4-10.4); Platelet Count 266 thou/uL (130-400); RBC Distribution Width 12.3 % (11.5-14.5); Red Blood Cell (RBC) Count 3.84 mill/uL (4.20-5.40); White Blood Cell (WBC) Count 9.1 thou/uL (4.8-10.8)
[2021-10-12] MEDS ORDERED: Iopamidol-370 76% 500 ML 1 ML ONE (11:12)
[2021-10-12 11:21] LABS: ALT (SGPT) 10 U/L (8-55); AST (SGOT) 16 U/L (5-34); Albumin 3.9 g/dL (3.4-4.8); Alkaline Phosphatase 96 U/L (40-110); Anion Gap 13 mmol/L (10-20); BUN (Urea Nitrogen) 7 mg/dL (9.8-20.1); Bilirubin, Total 0.9 mg/dL (0.2-1.2); Calc. Creatinine Clearance 0 mL/min (70-130); Calcium 8.2 mg/dL (7.8-10.44); Carbon Dioxide 22 mmol/L (23-31); Chloride 100 mmol/L (98-107); Globulin 2.9 g/dL (2.4-3.5); Glucose 125 mg/dL (83-110); Lipase 38 U/L (8-78); Potassium 4.4 mmol/L (3.5-5.1); Protein, Total 6.8 g/dL (5.8-8.1); Sodium 131 mmol/L (136-145)
[2021-10-12] MEDS ORDERED: diphenhydrAMINE 12.5 MG/5 ML UDCUP ONE (11:45)
[2021-10-12] MEDS ORDERED: methylPREDNISolone Sod Succ/PF 125 MG/2 ML VIAL ONE (11:45)
[2021-10-12] MEDS ORDERED: Famotidine/PF 20 mg/2ml Vial ONE (11:45)
[2021-10-12] MEDS ORDERED: diphenhydrAMINE 50 MG/ML VIAL ONE (11:46)
[2021-10-12] MEDS ORDERED: Lactated Ringer's 1,000 ML IV SCH (13:00)
[2021-10-12] MEDS ORDERED: Calcium Carbonate 500 MG ChewTAB PO PRN (13:01)
[2021-10-12] MEDS ORDERED: Acetaminophen 325 MG TAB PO PRN (13:01)
[2021-10-12 13:10] LABS: Magnesium 2.1 mg/dL (1.6-2.6); Phosphorus 2.8 mg/dL (2.3-4.7)
[2021-10-12 13:25] LABS: Cardiac Risk 1.9 (Less than 4.5)
[2021-10-12 13:37] LABS: Hemoglobin A1c 5.2 % (4.0-6.0)
[2021-10-12 14:21] LABS: Troponin I Less than 0.010 ng/mL (< 0.028)
[2021-10-12 14:52] LABS: SARS-CoV-2 NAA Rapid Test Not Detected (NotDetected)
[2021-10-12] MEDS: Levothyroxine 175 MCG TAB PO SCH (15:10)
[2021-10-12] MEDS: Diltiazem 125 MG in Sodium Chloride 0.9% 100 ML IVPB SCH (15:14)
[2021-10-12 17:35] VITALS: BMI 29.5
[2021-10-12] MEDS ORDERED: Enoxaparin Sodium 80 MG/0.8 ML SYRINGE SC SCH (21:00)
[2021-10-12] MEDS: Famotidine 20 MG TAB PO SCH (21:20)
[2021-10-12] MEDS: Folic Acid 1 MG TAB PO SCH (21:20)
[2021-10-12] MEDS: Montelukast Sodium 10 mg Tablet PO SCH (21:20)
[2021-10-12] MEDS: Escitalopram Oxalate 10 mg Tablet PO SCH (21:20)
[2021-10-12] MEDS: Atorvastatin Calcium 20 MG TAB PO SCH (21:20)
[2021-10-13] MEDS: Diltiazem 125 MG in Sodium Chloride 0.9% 100 ML IVPB SCH (03:47)
[2021-10-13 06:22] LABS: Anion Gap 10 mmol/L (10-20); BUN (Urea Nitrogen) 8 mg/dL (9.8-20.1); Calc. Creatinine Clearance 73 mL/min (70-130); Calcium 8.5 mg/dL (7.8-10.44); Carbon Dioxide 25 mmol/L (23-31); Chloride 101 mmol/L (98-107); Glucose 131 mg/dL (83-110); Potassium 4.2 mmol/L (3.5-5.1); Sodium 132 mmol/L (136-145)
[2021-10-13] MEDS: Levothyroxine 175 MCG TAB PO SCH (06:22)
[2021-10-13] MEDS: Cholecalciferol 1,000 UNITS (25 MCG) TAB PO SCH (08:50)
[2021-10-13] MEDS: Lisinopril 10 MG TAB PO SCH (08:50)
[2021-10-13] MEDS: Apixaban 5 MG TAB PO SCH ×2 (08:50→22:04)
[2021-10-13] MEDS: Dronedarone HCl 400 MG TAB PO SCH ×2 (08:50→17:40)
[2021-10-13] MEDS ORDERED: FLU VACC QS2021-22(65YR UP)/PF 240 MCG/0.7 ML SYRINGE IM ONE (09:00)
[2021-10-13 10:15] LABS: Creatinine, Urine 22.01 mg/dL (47-110)
[2021-10-13 12:53] LABS: Free T4 (Free Thyroxine) 1.45 ng/dL (0.70-1.48); Thyroid Stimulating Hormone 2.1929 uIU/mL (0.35-4.94)
[2021-10-13] MEDS: Montelukast Sodium 10 mg Tablet PO SCH (22:04)
[2021-10-13] MEDS: Escitalopram Oxalate 10 mg Tablet PO SCH (22:05)
[2021-10-13] MEDS: Atorvastatin Calcium 20 MG TAB PO SCH (22:05)
[2021-10-13] MEDS: Famotidine 20 MG TAB PO SCH (22:05)
[2021-10-13] MEDS: Folic Acid 1 MG TAB PO SCH (22:05)
[2021-10-14 05:13] LABS: Anion Gap 13 mmol/L (10-20); BUN (Urea Nitrogen) 9 mg/dL (9.8-20.1); Calc. Creatinine Clearance 77 mL/min (70-130); Calcium 8.3 mg/dL (7.8-10.44); Carbon Dioxide 21 mmol/L (23-31); Chloride 97 mmol/L (98-107); Glucose 110 mg/dL (83-110); Potassium 3.6 mmol/L (3.5-5.1); Sodium 127 mmol/L (136-145)
[2021-10-14] MEDS: Levothyroxine 175 MCG TAB PO SCH (05:40)
[2021-10-14] MEDS ORDERED: Lactated Ringer's 1,000 ML IV SCH (06:45)
[2021-10-14] MEDS: Cholecalciferol 1,000 UNITS (25 MCG) TAB PO SCH (09:48)
[2021-10-14] MEDS: Dronedarone HCl 400 MG TAB PO SCH ×2 (09:48→17:40)
[2021-10-14] MEDS: Apixaban 5 MG TAB PO SCH (09:48)
[2021-10-14] MEDS: Lisinopril 10 MG TAB PO SCH (09:48)
[2021-10-14] MEDS ORDERED: Furosemide 20 MG/2 ML VIAL SLOW IVP SCH (10:15)
[2021-10-14 14:49] LABS: Anion Gap 11 mmol/L (10-20); BUN (Urea Nitrogen) 9 mg/dL (9.8-20.1); Calc. Creatinine Clearance 68 mL/min (70-130); Calcium 8.5 mg/dL (7.8-10.44); Carbon Dioxide 27 mmol/L (23-31); Chloride 92 mmol/L (98-107); Glucose 127 mg/dL (83-110); Potassium 3.5 mmol/L (3.5-5.1); Sodium 126 mmol/L (136-145)
[2021-10-14 17:08] LABS: Creatinine, Urine 23.77 mg/dL (47-110)
[2021-10-14 20:36] LABS: Anion Gap 12 mmol/L (10-20); BUN (Urea Nitrogen) 8 mg/dL (9.8-20.1); Calc. Creatinine Clearance 66 mL/min (70-130); Calcium 8.6 mg/dL (7.8-10.44); Carbon Dioxide 24 mmol/L (23-31); Chloride 93 mmol/L (98-107); Glucose 145 mg/dL (83-110); Potassium 3.1 mmol/L (3.5-5.1); Sodium 126 mmol/L (136-145)
[2021-10-14] MEDS: Folic Acid 1 MG TAB PO SCH (20:53)
[2021-10-14] MEDS: Montelukast Sodium 10 mg Tablet PO SCH (20:53)
[2021-10-14] MEDS: Atorvastatin Calcium 20 MG TAB PO SCH (20:53)
[2021-10-14] MEDS: Famotidine 20 MG TAB PO SCH (20:53)
[2021-10-14] MEDS: Escitalopram Oxalate 10 mg Tablet PO SCH (20:54)
[2021-10-14] MEDS ORDERED: Potassium Chloride 20 MEQ TAB PO SCH (21:00)
[2021-10-15 05:42] LABS: Anion Gap 7 mmol/L (10-20); BUN (Urea Nitrogen) 8 mg/dL (9.8-20.1); Calc. Creatinine Clearance 72 mL/min (70-130); Calcium 7.9 mg/dL (7.8-10.44); Carbon Dioxide 29 mmol/L (23-31); Chloride 93 mmol/L (98-107); Glucose 88 mg/dL (83-110); Potassium 3.7 mmol/L (3.5-5.1); Sodium 125 mmol/L (136-145)
[2021-10-15] MEDS: Levothyroxine 175 MCG TAB PO SCH (05:51)
[2021-10-15] MEDS: Dronedarone HCl 400 MG TAB PO SCH ×2 (08:45→15:41)
[2021-10-15] MEDS: Lisinopril 10 MG TAB PO SCH (08:45)
[2021-10-15] MEDS: Cholecalciferol 1,000 UNITS (25 MCG) TAB PO SCH (08:46)
[2021-10-15] MEDS ORDERED: Tolvaptan 15 MG TAB PO SCH (12:14)
[2021-10-15] MEDS ORDERED: TOLVAPTAN 30 MG TAB PO SCH (12:45)
[2021-10-15] MEDS ORDERED: Furosemide 20 MG/2 ML VIAL SLOW IVP SCH (14:00)
[2021-10-15 14:01] LABS: Creatinine, Urine 128.27 mg/dL (47-110)
[2021-10-15] MEDS: Folic Acid 1 MG TAB PO SCH (21:09)
[2021-10-15] MEDS: hydrALAZINE 25 MG TAB PO SCH (21:10)
[2021-10-15] MEDS: Escitalopram Oxalate 10 mg Tablet PO SCH (21:10)
[2021-10-15] MEDS: Montelukast Sodium 10 mg Tablet PO SCH (21:10)
[2021-10-15] MEDS: Famotidine 20 MG TAB PO SCH (21:10)
[2021-10-15] MEDS: Atorvastatin Calcium 20 MG TAB PO SCH (22:32)
[2021-10-16 05:12] LABS: Anion Gap 15 mmol/L (10-20); BUN (Urea Nitrogen) 8 mg/dL (9.8-20.1); Calc. Creatinine Clearance 67 mL/min (70-130); Calcium 8.8 mg/dL (7.8-10.44); Carbon Dioxide 23 mmol/L (23-31); Chloride 101 mmol/L (98-107); Glucose 102 mg/dL (83-110); Potassium 4.4 mmol/L (3.5-5.1); Sodium 135 mmol/L (136-145)
[2021-10-16] MEDS: Levothyroxine 175 MCG TAB PO SCH (06:05)
[2021-10-16] MEDS: hydrALAZINE 25 MG TAB PO SCH ×3 (08:57→20:00)
[2021-10-16] MEDS: Cholecalciferol 1,000 UNITS (25 MCG) TAB PO SCH (08:57)
[2021-10-16] MEDS: Dronedarone HCl 400 MG TAB PO SCH ×2 (08:57→17:29)
[2021-10-16] MEDS ORDERED: Escitalopram Oxalate 10 mg Tablet PO SCH (10:41)
[2021-10-16 12:27] LABS: Anion Gap 13 mmol/L (10-20); BUN (Urea Nitrogen) 10 mg/dL (9.8-20.1); Calc. Creatinine Clearance 66 mL/min (70-130); Carbon Dioxide 25 mmol/L (23-31); Chloride 98 mmol/L (98-107); Glucose 84 mg/dL (83-110); Potassium 3.6 mmol/L (3.5-5.1); Sodium 132 mmol/L (136-145)
[2021-10-16] MEDS: Atorvastatin Calcium 20 MG TAB PO SCH (19:58)
[2021-10-16] MEDS: Famotidine 20 MG TAB PO SCH (19:59)
[2021-10-16] MEDS: Montelukast Sodium 10 mg Tablet PO SCH (19:59)
[2021-10-16] MEDS: Folic Acid 1 MG TAB PO SCH (19:59)
[2021-10-16 20:01] VITALS: BP 121/55
[2021-10-16 20:53] VITALS: TEMP 97.6
== END 2021-10-16 20:40 | disposition home or self-care (01) | DRG 309 ==
LOC: ERS 10:07 → ERHOLD 12:41 → 2NO 17:03
PROVIDERS: ADMIT Family Medicine; ATTEND Family Medicine
DX: I48.0 Paroxysmal atrial fibrillation (principal); E87.1 Hypo-osmolality and hyponatremia; I31.3 Pericardial effusion (noninflammatory); I50.32 Chronic diastolic (congestive) heart failure; E03.9 Hypothyroidism, unspecified; E78.5 Hyperlipidemia, unspecified; F41.9 Anxiety disorder, unspecified; K76.89 Other specified diseases of liver; K21.9 Gastro-esophageal reflux disease without esophagitis; J30.2 Other seasonal allergic rhinitis; E55.9 Vitamin D deficiency, unspecified; I25.10 Atherosclerotic heart disease of native coronary artery without angina pectoris; E87.6 Hypokalemia; I11.0 Hypertensive heart disease with heart failure; T43.225A Adverse effect of selective serotonin reuptake inhibitors, initial encounter; Z20.822 Contact with and (suspected) exposure to COVID-19; Z85.850 Personal history of malignant neoplasm of thyroid; Z90.710 Acquired absence of both cervix and uterus; Z86.73 Personal history of transient ischemic attack (TIA), and cerebral infarction without residual deficits; Z88.1 Allergy status to other antibiotic agents; Z88.0 Allergy status to penicillin; Z88.2 Allergy status to sulfonamides; Z88.8 Allergy status to other drugs, medicaments and biological substances; Z79.82 Long term (current) use of aspirin; Z79.899 Other long term (current) drug therapy; Z90.49 Acquired absence of other specified parts of digestive tract
CPT/HCPCS: 36415; 71045; 71275; 80048; 80053; 80061; 82533; 82570; 83036; 83690; 83735; 83880; 83930; 83935; 84100; 84156; 84300; 84439; 84443; 84484; 84540; 85025; 85379; 90471; 90662; 90732; 93005; 93306; G0008; G0009; J1200; J1650; J1940; J2930; J3490; J7120; Q0163; Q9967; S0028; U0002

== ENCOUNTER 2021-10-30 13:36 | Outpatient (CLI) | payer MEDICARE, BC | END 2021-10-30 13:37 | disposition home or self-care (01) | LOC: BICMAMMO 13:36 | PROVIDERS: ATTEND Nurse Practitioner Family | DX: N64.59 Other signs and symptoms in breast (principal) | CPT/HCPCS: 77066; G0279 ==

== ENCOUNTER 2021-11-01 16:25 | Inpatient (IN) | payer MEDICARE, BC ==
[2021-11-01 17:02] LABS: #Basophils 0.1 thou/uL (0.0-0.2); #Lymphocytes 0.4 thou/uL (1.20-3.40); #Monocytes 0.8 thou/uL (0.11-0.59); #Neutrophils 7.6 thou/uL (1.40-6.50); %Basophils 0.8 % (0.0-1.0); %Eosinophils 0.1 % (0.0-10.0); %Lymphocytes 4.3 % (21.0-51.0); %Monocytes 8.5 % (0.0-10.0); %Neutrophils 86.3 % (42.0-75.0); Mean Corpuscular HGB CONC 34.8 g/dL (32.0-36.0); Mean Corpuscular Hemoglobin 34.4 pg (27.0-31.0); Mean Corpuscular Volume 98.8 fL (78.0-98.0); Mean Platelet Volume 8.4 fL (7.4-10.4); Platelet Count 179 thou/uL (130-400); RBC Distribution Width 12.1 % (11.5-14.5); Red Blood Cell (RBC) Count 3.77 mill/uL (4.20-5.40); White Blood Cell (WBC) Count 8.8 thou/uL (4.8-10.8)
[2021-11-01 17:28] LABS: ALT (SGPT) 13 U/L (8-55); AST (SGOT) 23 U/L (5-34); Albumin 3.8 g/dL (3.4-4.8); Alkaline Phosphatase 79 U/L (40-110); Anion Gap 13 mmol/L (10-20); BUN (Urea Nitrogen) 9 mg/dL (9.8-20.1); Bilirubin, Total 0.4 mg/dL (0.2-1.2); Calc. Creatinine Clearance 0 mL/min (70-130); Carbon Dioxide 24 mmol/L (23-31); Chloride 94 mmol/L (98-107); Globulin 2.7 g/dL (2.4-3.5); Glucose 118 mg/dL (83-110); Potassium 4.1 mmol/L (3.5-5.1); Protein, Total 6.5 g/dL (5.8-8.1); Sodium 127 mmol/L (136-145)
[2021-11-01] MEDS ORDERED: cefTRIAXone\\ROCEPHIN 1 GM VIAL ONE (17:34)
[2021-11-01 18:05] LABS: SARS-CoV-2 NAA Rapid Test DETECTED (NotDetected)
[2021-11-01] MEDS ORDERED: Azithromycin 500 MG VIAL ONE (18:23)
[2021-11-01] MEDS ORDERED: Ondansetron ODT 4 MG TAB PO PRN (18:50)
[2021-11-01] MEDS ORDERED: Ondansetron PF 4 MG/2 ML Vial IVP PRN (18:50)
[2021-11-01] MEDS ORDERED: Acetaminophen 325 MG TAB PO PRN (18:50)
[2021-11-01] MEDS ORDERED: Pharmacy to Dose REMDESIVIR IVPB PRN ×2 (18:56→19:17)
[2021-11-01] MEDS ORDERED: Dexamethasone 4 MG TAB PO SCH (19:15)
[2021-11-01] MEDS ORDERED: Enoxaparin Sodium 40 MG/0.4 ML SYRINGE SC SCH (19:45)
[2021-11-01 21:11] VITALS: BMI 26.6
[2021-11-01] MEDS: Folic Acid 1 MG TAB PO SCH (22:00)
[2021-11-01] MEDS: Atorvastatin Calcium 20 MG TAB PO SCH (22:00)
[2021-11-01] MEDS: Montelukast Sodium 10 mg Tablet PO SCH (22:00)
[2021-11-01] MEDS: hydrALAZINE 25 MG TAB PO SCH (22:00)
[2021-11-01] MEDS: Famotidine 20 MG TAB PO SCH (22:01)
[2021-11-01] MEDS: Escitalopram Oxalate 10 mg Tablet PO SCH (22:01)
[2021-11-01] MEDS ORDERED: Dextromethorphan Polistirex 30 MG/5 ML (89 ML BOTTLE) PO PRN (23:44)
[2021-11-02] MEDS: Levothyroxine 175 MCG TAB PO SCH (06:04)
[2021-11-02 06:59] LABS: Hemoglobin 12.8 g/dL (12.0-16.0); Mean Corpuscular HGB CONC 34.8 g/dL (32.0-36.0); Mean Corpuscular Hemoglobin 34.1 pg (27.0-31.0); Mean Corpuscular Volume 98.1 fL (78.0-98.0); Mean Platelet Volume 8.9 fL (7.4-10.4); Platelet Count 181 thou/uL (130-400); RBC Distribution Width 12.2 % (11.5-14.5); Red Blood Cell (RBC) Count 3.75 mill/uL (4.20-5.40); White Blood Cell (WBC) Count 14.5 thou/uL (4.8-10.8)
[2021-11-02 07:00] LABS: Band 42 % (5-11); Lymphocytes 1 % (21-51); MDiff Complete? YES; Monocytes 5 % (0-10); Neutrophil 52 % (42-75); Platelet Morphology Comment Appears Adequate; RBC Morphology Normal; Reflex for Review?? YES
[2021-11-02 07:11] LABS: ALT (SGPT) 16 U/L (8-55); AST (SGOT) 27 U/L (5-34); Albumin 3.6 g/dL (3.4-4.8); Alkaline Phosphatase 67 U/L (40-110); Anion Gap 12 mmol/L (10-20); BUN (Urea Nitrogen) 7 mg/dL (9.8-20.1); Bilirubin, Total 0.6 mg/dL (0.2-1.2); Calc. Creatinine Clearance 79 mL/min (70-130); Carbon Dioxide 25 mmol/L (23-31); Chloride 91 mmol/L (98-107); Globulin 2.8 g/dL (2.4-3.5); Glucose 126 mg/dL (83-110); Potassium 3.7 mmol/L (3.5-5.1); Protein, Total 6.4 g/dL (5.8-8.1); Sodium 124 mmol/L (136-145)
[2021-11-02] MEDS: Dronedarone HCl 400 MG TAB PO SCH ×2 (09:06→17:09)
[2021-11-02] MEDS: Famotidine 20 MG TAB PO SCH ×2 (09:06→21:00)
[2021-11-02] MEDS: Dexamethasone 4 MG TAB PO SCH (09:06)
[2021-11-02] MEDS: Cholecalciferol 1,000 UNITS (25 MCG) TAB PO SCH (09:07)
[2021-11-02] MEDS: hydrALAZINE 25 MG TAB PO SCH ×3 (09:07→23:36)
[2021-11-02] MEDS ORDERED: Enoxaparin Sodium 40 MG/0.4 ML SYRINGE SC SCH (09:30)
[2021-11-02] MEDS ORDERED: REMDESIVIR 200 MG in Sodium Chloride 0.9% 250 ML 210 ML IV SCH (10:30)
[2021-11-02] MEDS ORDERED: TOLVAPTAN 30 MG TAB FS SCH (13:15)
[2021-11-02] MEDS: cefTRIAXone\\ROCEPHIN 1 GM in Sodium Chloride 0.9% 100 ML IVPB SCH (17:09)
[2021-11-02] MEDS ORDERED: Azithromycin 500 MG in Sodium Chloride 0.9% 250 ML 250 ML IVPB SCH (19:00)
[2021-11-02] MEDS: Atorvastatin Calcium 20 MG TAB PO SCH (21:00)
[2021-11-02] MEDS: Folic Acid 1 MG TAB PO SCH (21:00)
[2021-11-02] MEDS: Escitalopram Oxalate 10 mg Tablet PO SCH (21:00)
[2021-11-02] MEDS: Montelukast Sodium 10 mg Tablet PO SCH (21:01)
[2021-11-03] MEDS: Levothyroxine 175 MCG TAB PO SCH (05:34)
[2021-11-03 06:35] LABS: Anion Gap 8 mmol/L (10-20); BUN (Urea Nitrogen) 10 mg/dL (9.8-20.1); Calc. Creatinine Clearance 76 mL/min (70-130); Calcium 8.2 mg/dL (7.8-10.44); Carbon Dioxide 28 mmol/L (23-31); Chloride 96 mmol/L (98-107); Glucose 111 mg/dL (83-110); Potassium 3.9 mmol/L (3.5-5.1); Sodium 128 mmol/L (136-145)
[2021-11-03] MEDS: Cholecalciferol 1,000 UNITS (25 MCG) TAB PO SCH (08:39)
[2021-11-03] MEDS: Famotidine 20 MG TAB PO SCH ×2 (08:39→20:26)
[2021-11-03] MEDS: hydrALAZINE 25 MG TAB PO SCH ×3 (08:39→20:26)
[2021-11-03] MEDS: Dexamethasone 4 MG TAB PO SCH (08:39)
[2021-11-03] MEDS: Dronedarone HCl 400 MG TAB PO SCH ×2 (08:39→16:48)
[2021-11-03] MEDS: Enoxaparin Sodium 40 MG/0.4 ML SYRINGE SC SCH (08:40)
[2021-11-03] MEDS: REMDESIVIR 100 MG in Sodium Chloride 0.9% 250 ML 230 ML IV SCH (08:40)
[2021-11-03 12:12] LABS: ALT (SGPT) 16 U/L (8-55); AST (SGOT) 25 U/L (5-34); Albumin 3.4 g/dL (3.4-4.8); Alkaline Phosphatase 67 U/L (40-110); Bilirubin, Direct 0.4 mg/dL (0.1-0.3); Bilirubin, Total 0.7 mg/dL (0.2-1.2); Protein, Total 6.2 g/dL (5.8-8.1)
[2021-11-03 12:27] LABS: Legionella Urinary Ag Negative (Negative); Strep pneumo Urine Ag POSITIVE (NEGATIVE)
[2021-11-03 13:49] LABS: Potassium 3.5 mmol/L (3.5-5.1)
[2021-11-03] MEDS: cefTRIAXone\\ROCEPHIN 1 GM in Sodium Chloride 0.9% 100 ML IVPB SCH (16:48)
[2021-11-03] MEDS: Escitalopram Oxalate 10 mg Tablet PO SCH (20:26)
[2021-11-03] MEDS: Atorvastatin Calcium 20 MG TAB PO SCH (20:26)
[2021-11-03] MEDS: Montelukast Sodium 10 mg Tablet PO SCH (20:26)
[2021-11-03] MEDS: Folic Acid 1 MG TAB PO SCH (20:26)
[2021-11-04] MEDS: Levothyroxine 175 MCG TAB PO SCH (04:41)
[2021-11-04 07:10] LABS: Anion Gap 11 mmol/L (10-20); BUN (Urea Nitrogen) 12 mg/dL (9.8-20.1); Calc. Creatinine Clearance 75 mL/min (70-130); Calcium 8.5 mg/dL (7.8-10.44); Carbon Dioxide 28 mmol/L (23-31); Chloride 97 mmol/L (98-107); Glucose 118 mg/dL (83-110); Potassium 4.2 mmol/L (3.5-5.1); Sodium 132 mmol/L (136-145)
[2021-11-04 07:13] LABS: ALT (SGPT) 15 U/L (8-55); AST (SGOT) 17 U/L (5-34); Albumin 3.5 g/dL (3.4-4.8); Alkaline Phosphatase 70 U/L (40-110); Bilirubin, Direct 0.4 mg/dL (0.1-0.3); Bilirubin, Total 0.7 mg/dL (0.2-1.2); Protein, Total 6.2 g/dL (5.8-8.1)
[2021-11-04] MEDS: REMDESIVIR 100 MG in Sodium Chloride 0.9% 250 ML 230 ML IV SCH (08:53)
[2021-11-04] MEDS: hydrALAZINE 25 MG TAB PO SCH ×3 (08:54→20:22)
[2021-11-04] MEDS: Dexamethasone 4 MG TAB PO SCH (08:54)
[2021-11-04] MEDS: Enoxaparin Sodium 40 MG/0.4 ML SYRINGE SC SCH (08:54)
[2021-11-04] MEDS: Cholecalciferol 1,000 UNITS (25 MCG) TAB PO SCH (08:54)
[2021-11-04] MEDS: Famotidine 20 MG TAB PO SCH ×2 (08:54→20:21)
[2021-11-04] MEDS: Dronedarone HCl 400 MG TAB PO SCH ×2 (08:54→16:11)
[2021-11-04] MEDS: cefTRIAXone\\ROCEPHIN 1 GM in Sodium Chloride 0.9% 100 ML IVPB SCH (17:09)
[2021-11-04] MEDS: Montelukast Sodium 10 mg Tablet PO SCH (20:21)
[2021-11-04] MEDS: Atorvastatin Calcium 20 MG TAB PO SCH (20:22)
[2021-11-04] MEDS: Escitalopram Oxalate 10 mg Tablet PO SCH (20:22)
[2021-11-04] MEDS: Folic Acid 1 MG TAB PO SCH (20:22)
[2021-11-05] MEDS: Levothyroxine 175 MCG TAB PO SCH (05:30)
[2021-11-05 08:05] LABS: ALT (SGPT) 17 U/L (8-55); AST (SGOT) 21 U/L (5-34); Albumin 3.5 g/dL (3.4-4.8); Alkaline Phosphatase 80 U/L (40-110); Anion Gap 13 mmol/L (10-20); BUN (Urea Nitrogen) 9 mg/dL (9.8-20.1); Bilirubin, Direct 0.6 mg/dL (0.1-0.3); Calc. Creatinine Clearance 87 mL/min (70-130); Carbon Dioxide 24 mmol/L (23-31); Chloride 92 mmol/L (98-107); Glucose 115 mg/dL (83-110); Protein, Total 6.2 g/dL (5.8-8.1); Sodium 126 mmol/L (136-145)
[2021-11-05] MEDS: hydrALAZINE 25 MG TAB PO SCH ×3 (08:50→20:32)
[2021-11-05] MEDS: REMDESIVIR 100 MG in Sodium Chloride 0.9% 250 ML 230 ML IV SCH (08:50)
[2021-11-05] MEDS: Dronedarone HCl 400 MG TAB PO SCH ×2 (08:51→17:01)
[2021-11-05] MEDS: Enoxaparin Sodium 40 MG/0.4 ML SYRINGE SC SCH (08:51)
[2021-11-05] MEDS: Famotidine 20 MG TAB PO SCH ×2 (08:51→20:33)
[2021-11-05] MEDS: Dexamethasone 4 MG TAB PO SCH (08:51)
[2021-11-05] MEDS: Cholecalciferol 1,000 UNITS (25 MCG) TAB PO SCH (08:51)
[2021-11-05] MEDS ORDERED: Potassium Chloride 20 MEQ TAB PO SCH (09:30)
[2021-11-05] MEDS ORDERED: Tolvaptan 15 MG TAB PO SCH (12:30)
[2021-11-05] MEDS ORDERED: guaiFENesin 200 MG TAB PO PRN (12:52)
[2021-11-05] MEDS ORDERED: TOLVAPTAN 30 MG TAB PO SCH (13:30)
[2021-11-05] MEDS: Guaifenesin DM 100-10/5 ML UDCUP PO PRN (13:49)
[2021-11-05 16:08] LABS: Anion Gap 15 mmol/L (10-20); BUN (Urea Nitrogen) 8 mg/dL (9.8-20.1); Calc. Creatinine Clearance 80 mL/min (70-130); Calcium 8.3 mg/dL (7.8-10.44); Carbon Dioxide 20 mmol/L (23-31); Chloride 94 mmol/L (98-107); Glucose 152 mg/dL (83-110); Potassium 3.5 mmol/L (3.5-5.1); Sodium 125 mmol/L (136-145)
[2021-11-05] MEDS ORDERED: cefTRIAXone\\ROCEPHIN 1 GM in Sodium Chloride 0.9% 100 ML IVPB SCH (18:00)
[2021-11-05] MEDS: Folic Acid 1 MG TAB PO SCH (20:32)
[2021-11-05] MEDS: Montelukast Sodium 10 mg Tablet PO SCH (20:33)
[2021-11-05] MEDS: Escitalopram Oxalate 10 mg Tablet PO SCH (20:33)
[2021-11-05] MEDS: Atorvastatin Calcium 20 MG TAB PO SCH (20:33)
[2021-11-06] MEDS: Levothyroxine 175 MCG TAB PO SCH (05:44)
[2021-11-06 07:44] LABS: Anion Gap 9 mmol/L (10-20); BUN (Urea Nitrogen) 10 mg/dL (9.8-20.1); Calc. Creatinine Clearance 80 mL/min (70-130); Calcium 8.2 mg/dL (7.8-10.44); Carbon Dioxide 28 mmol/L (23-31); Chloride 97 mmol/L (98-107); Glucose 94 mg/dL (83-110); Potassium 3.3 mmol/L (3.5-5.1); Sodium 131 mmol/L (136-145)
[2021-11-06] MEDS: Dexamethasone 4 MG TAB PO SCH (08:26)
[2021-11-06] MEDS: hydrALAZINE 25 MG TAB PO SCH ×3 (08:26→20:18)
[2021-11-06] MEDS: Famotidine 20 MG TAB PO SCH ×2 (08:26→20:18)
[2021-11-06] MEDS: Dronedarone HCl 400 MG TAB PO SCH ×2 (08:26→17:03)
[2021-11-06] MEDS: Enoxaparin Sodium 40 MG/0.4 ML SYRINGE SC SCH (08:27)
[2021-11-06] MEDS: REMDESIVIR 100 MG in Sodium Chloride 0.9% 250 ML 230 ML IV SCH (08:27)
[2021-11-06] MEDS: Cholecalciferol 1,000 UNITS (25 MCG) TAB PO SCH (08:27)
[2021-11-06] MEDS ORDERED: Tolvaptan 15 MG TAB PO ONE (09:03)
[2021-11-06] MEDS ORDERED: Potassium Chloride 20 MEQ TAB PO SCH ×2 (09:15→11:45)
[2021-11-06] MEDS ORDERED: TOLVAPTAN 30 MG TAB PO SCH (09:30)
[2021-11-06] MEDS: Guaifenesin DM 100-10/5 ML UDCUP PO PRN (10:10)
[2021-11-06 10:47] LABS: Magnesium 2.4 mg/dL (1.6-2.6)
[2021-11-06 11:57] LABS: ALT (SGPT) 18 U/L (8-55); AST (SGOT) 20 U/L (5-34); Albumin 3.3 g/dL (3.4-4.8); Alkaline Phosphatase 63 U/L (40-110); Bilirubin, Direct 0.6 mg/dL (0.1-0.3); Bilirubin, Total 1.2 mg/dL (0.2-1.2); Protein, Total 5.9 g/dL (5.8-8.1)
[2021-11-06] MEDS: Folic Acid 1 MG TAB PO SCH (20:18)
[2021-11-06] MEDS: Atorvastatin Calcium 20 MG TAB PO SCH (20:19)
[2021-11-06] MEDS: Montelukast Sodium 10 mg Tablet PO SCH (20:19)
[2021-11-07] MEDS: Levothyroxine 175 MCG TAB PO SCH (06:01)
[2021-11-07 07:09] LABS: Anion Gap 10 mmol/L (10-20); BUN (Urea Nitrogen) 12 mg/dL (9.8-20.1); Calc. Creatinine Clearance 74 mL/min (70-130); Calcium 8.5 mg/dL (7.8-10.44); Carbon Dioxide 27 mmol/L (23-31); Chloride 101 mmol/L (98-107); Glucose 95 mg/dL (83-110); Potassium 3.8 mmol/L (3.5-5.1); Sodium 134 mmol/L (136-145)
[2021-11-07] MEDS: Dexamethasone 4 MG TAB PO SCH (07:33)
[2021-11-07] MEDS: hydrALAZINE 25 MG TAB PO SCH ×3 (07:33→20:14)
[2021-11-07] MEDS: Enoxaparin Sodium 40 MG/0.4 ML SYRINGE SC SCH (07:34)
[2021-11-07] MEDS: Dronedarone HCl 400 MG TAB PO SCH ×2 (07:34→15:20)
[2021-11-07] MEDS: Famotidine 20 MG TAB PO SCH ×2 (07:34→20:14)
[2021-11-07] MEDS: Cholecalciferol 1,000 UNITS (25 MCG) TAB PO SCH (07:34)
[2021-11-07] MEDS: Atorvastatin Calcium 20 MG TAB PO SCH (20:13)
[2021-11-07] MEDS: Folic Acid 1 MG TAB PO SCH (20:13)
[2021-11-07] MEDS: Montelukast Sodium 10 mg Tablet PO SCH (20:13)
[2021-11-08] MEDS: Levothyroxine 175 MCG TAB PO SCH (05:03)
[2021-11-08 06:49] LABS: Anion Gap 11 mmol/L (10-20); BUN (Urea Nitrogen) 12 mg/dL (9.8-20.1); Calc. Creatinine Clearance 81 mL/min (70-130); Carbon Dioxide 25 mmol/L (23-31); Chloride 97 mmol/L (98-107); Glucose 86 mg/dL (83-110); Potassium 3.6 mmol/L (3.5-5.1); Sodium 129 mmol/L (136-145)
[2021-11-08] MEDS: Sodium Chloride 1 GM TAB PO SCH ×3 (09:33→19:46)
[2021-11-08] MEDS: hydrALAZINE 25 MG TAB PO SCH ×3 (09:33→19:46)
[2021-11-08] MEDS: Dronedarone HCl 400 MG TAB PO SCH ×2 (09:33→15:59)
[2021-11-08] MEDS: Cholecalciferol 1,000 UNITS (25 MCG) TAB PO SCH (09:33)
[2021-11-08] MEDS: Famotidine 20 MG TAB PO SCH ×2 (09:33→19:47)
[2021-11-08] MEDS: Dexamethasone 4 MG TAB PO SCH (09:34)
[2021-11-08] MEDS: Enoxaparin Sodium 40 MG/0.4 ML SYRINGE SC SCH (09:35)
[2021-11-08] MEDS: Atorvastatin Calcium 20 MG TAB PO SCH (19:46)
[2021-11-08] MEDS: Folic Acid 1 MG TAB PO SCH (19:46)
[2021-11-08] MEDS: Montelukast Sodium 10 mg Tablet PO SCH (19:46)
[2021-11-09] MEDS: Levothyroxine 175 MCG TAB PO SCH (05:33)
[2021-11-09 07:58] LABS: Anion Gap 10 mmol/L (10-20); BUN (Urea Nitrogen) 11 mg/dL (9.8-20.1); Calc. Creatinine Clearance 84 mL/min (70-130); Calcium 7.8 mg/dL (7.8-10.44); Carbon Dioxide 25 mmol/L (23-31); Chloride 96 mmol/L (98-107); Glucose 81 mg/dL (83-110); Potassium 3.5 mmol/L (3.5-5.1); Sodium 127 mmol/L (136-145)
[2021-11-09] MEDS: Famotidine 20 MG TAB PO SCH ×2 (08:12→20:04)
[2021-11-09] MEDS: Sodium Chloride 1 GM TAB PO SCH ×3 (08:12→20:02)
[2021-11-09] MEDS: Cholecalciferol 1,000 UNITS (25 MCG) TAB PO SCH (08:12)
[2021-11-09] MEDS: Dronedarone HCl 400 MG TAB PO SCH ×2 (08:12→16:12)
[2021-11-09] MEDS: Enoxaparin Sodium 40 MG/0.4 ML SYRINGE SC SCH (08:13)
[2021-11-09] MEDS: Dexamethasone 4 MG TAB PO SCH (08:13)
[2021-11-09] MEDS: hydrALAZINE 25 MG TAB PO SCH ×3 (08:20→20:02)
[2021-11-09 16:38] LABS: Potassium 3.8 mmol/L (3.5-5.1)
[2021-11-09] MEDS: Folic Acid 1 MG TAB PO SCH (20:01)
[2021-11-09] MEDS: Atorvastatin Calcium 20 MG TAB PO SCH (20:01)
[2021-11-09] MEDS: Montelukast Sodium 10 mg Tablet PO SCH (20:02)
[2021-11-10] MEDS: Levothyroxine 175 MCG TAB PO SCH (06:08)
[2021-11-10 07:59] LABS: Anion Gap 10 mmol/L (10-20); BUN (Urea Nitrogen) 9 mg/dL (9.8-20.1); Calc. Creatinine Clearance 84 mL/min (70-130); Calcium 7.9 mg/dL (7.8-10.44); Carbon Dioxide 21 mmol/L (23-31); Chloride 95 mmol/L (98-107); Glucose 81 mg/dL (83-110); Potassium 3.9 mmol/L (3.5-5.1); Sodium 122 mmol/L (136-145)
[2021-11-10] MEDS ORDERED: Tolvaptan 15 MG TAB PO SCH (08:30)
[2021-11-10] MEDS: Dexamethasone 4 MG TAB PO SCH (08:32)
[2021-11-10] MEDS: Cholecalciferol 1,000 UNITS (25 MCG) TAB PO SCH (08:33)
[2021-11-10] MEDS: hydrALAZINE 25 MG TAB PO SCH ×3 (08:33→21:37)
[2021-11-10] MEDS: Enoxaparin Sodium 40 MG/0.4 ML SYRINGE SC SCH (08:33)
[2021-11-10] MEDS: Dronedarone HCl 400 MG TAB PO SCH ×2 (08:33→15:51)
[2021-11-10] MEDS: Famotidine 20 MG TAB PO SCH ×2 (08:34→21:37)
[2021-11-10] MEDS ORDERED: TOLVAPTAN 30 MG TAB PO SCH (09:00)
[2021-11-10] MEDS: Folic Acid 1 MG TAB PO SCH (21:37)
[2021-11-10] MEDS: Montelukast Sodium 10 mg Tablet PO SCH (21:37)
[2021-11-10] MEDS: Atorvastatin Calcium 20 MG TAB PO SCH (21:38)
[2021-11-11] MEDS: Levothyroxine 175 MCG TAB PO SCH (06:00)
[2021-11-11 07:30] LABS: Anion Gap 9 mmol/L (10-20); BUN (Urea Nitrogen) 10 mg/dL (9.8-20.1); Calc. Creatinine Clearance 89 mL/min (70-130); Calcium 8.1 mg/dL (7.8-10.44); Carbon Dioxide 26 mmol/L (23-31); Chloride 91 mmol/L (98-107); Glucose 80 mg/dL (83-110); Potassium 3.6 mmol/L (3.5-5.1); Sodium 122 mmol/L (136-145)
[2021-11-11] MEDS: Dronedarone HCl 400 MG TAB PO SCH ×2 (08:36→16:21)
[2021-11-11] MEDS: Dexamethasone 4 MG TAB PO SCH (08:36)
[2021-11-11] MEDS: hydrALAZINE 25 MG TAB PO SCH ×3 (08:36→20:37)
[2021-11-11] MEDS: Cholecalciferol 1,000 UNITS (25 MCG) TAB PO SCH (08:37)
[2021-11-11] MEDS: Enoxaparin Sodium 40 MG/0.4 ML SYRINGE SC SCH (08:37)
[2021-11-11] MEDS: Famotidine 20 MG TAB PO SCH ×2 (08:37→20:37)
[2021-11-11] MEDS ORDERED: TOLVAPTAN 30 MG TAB PO SCH (11:45)
[2021-11-11] MEDS ORDERED: Sodium Chloride 1 GM TAB PO SCH (15:00)
[2021-11-11] MEDS: Montelukast Sodium 10 mg Tablet PO SCH (20:37)
[2021-11-11] MEDS: Folic Acid 1 MG TAB PO SCH (20:37)
[2021-11-11] MEDS: Atorvastatin Calcium 20 MG TAB PO SCH (20:37)
[2021-11-12] MEDS: Levothyroxine 175 MCG TAB PO SCH (04:44)
[2021-11-12 06:44] LABS: Anion Gap 11 mmol/L (10-20); BUN (Urea Nitrogen) 8 mg/dL (9.8-20.1); Calc. Creatinine Clearance 73 mL/min (70-130); Calcium 8.6 mg/dL (7.8-10.44); Carbon Dioxide 28 mmol/L (23-31); Chloride 101 mmol/L (98-107); Glucose 94 mg/dL (83-110); Potassium 3.6 mmol/L (3.5-5.1); Sodium 136 mmol/L (136-145)
[2021-11-12 08:13] VITALS: BP 145/64; TEMP 98
[2021-11-12] MEDS: hydrALAZINE 25 MG TAB PO SCH (08:59)
[2021-11-12] MEDS: Dronedarone HCl 400 MG TAB PO SCH (08:59)
[2021-11-12] MEDS: Dexamethasone 4 MG TAB PO SCH (08:59)
[2021-11-12] MEDS: Famotidine 20 MG TAB PO SCH (09:00)
[2021-11-12] MEDS: Enoxaparin Sodium 40 MG/0.4 ML SYRINGE SC SCH (09:00)
[2021-11-12] MEDS: Cholecalciferol 1,000 UNITS (25 MCG) TAB PO SCH (09:00)
== END 2021-11-12 14:10 | disposition home health service (06) | DRG 177 ==
LOC: ERS 16:25 → T4-A 17:37
PROVIDERS: ADMIT Family Medicine; ATTEND Family Medicine
PROC: 8E0ZXY6 Isolation (ICD-10-PCS; principal; 2021-11-01)
PROC: 3E0DX3Z Introduction of Anti-inflammatory into Mouth and Pharynx, External Approach (ICD-10-PCS; 2021-11-01)
PROC: XW033E5 Introduction of Remdesivir Anti-infective into Peripheral Vein, Percutaneous Approach, New Technology Group 5 (ICD-10-PCS; 2021-11-02)
DX: U07.1 COVID-19 (principal); J96.01 Acute respiratory failure with hypoxia; J12.82 Pneumonia due to coronavirus disease 2019; J13 Pneumonia due to Streptococcus pneumoniae; G93.49 Other encephalopathy; E22.2 Syndrome of inappropriate secretion of antidiuretic hormone; T43.225A Adverse effect of selective serotonin reuptake inhibitors, initial encounter; I48.91 Unspecified atrial fibrillation; E03.9 Hypothyroidism, unspecified; I10 Essential (primary) hypertension; E78.5 Hyperlipidemia, unspecified; E87.8 Other disorders of electrolyte and fluid balance, not elsewhere classified; K21.9 Gastro-esophageal reflux disease without esophagitis; F32.A Depression, unspecified; F41.9 Anxiety disorder, unspecified; Z60.2 Problems related to living alone; Z85.850 Personal history of malignant neoplasm of thyroid; Z88.1 Allergy status to other antibiotic agents; Z88.8 Allergy status to other drugs, medicaments and biological substances; Z88.0 Allergy status to penicillin; Z88.2 Allergy status to sulfonamides; Z91.041 Radiographic dye allergy status; Z79.890 Hormone replacement therapy; Z79.899 Other long term (current) drug therapy; Z92.3 Personal history of irradiation; Z90.710 Acquired absence of both cervix and uterus; Z90.89 Acquired absence of other organs
CPT/HCPCS: 0240U; 36415; 71045; 80048; 80053; 80076; 83605; 83735; 83930; 83935; 84145; 84300; 85007; 85025; 85027; 85060; 85652; 86140; 87040; 87449; 87899; 93005; 93010; J0456; J0696; J1650; J3490; J7050; J8540; U0003; U0005

== ENCOUNTER 2021-12-02 13:19 | Outpatient (CLI) | payer MEDICARE, BC | END 2021-12-02 13:20 | disposition home or self-care (01) | LOC: BICRAD 13:19 | PROVIDERS: ATTEND Nurse Practitioner Family | DX: Z09 Encounter for follow-up examination after completed treatment for conditions other than malignant neoplasm (principal); M81.0 Age-related osteoporosis without current pathological fracture; F33.1 Major depressive disorder, recurrent, moderate; I31.3 Pericardial effusion (noninflammatory); K21.9 Gastro-esophageal reflux disease without esophagitis; I10 Essential (primary) hypertension; E03.9 Hypothyroidism, unspecified; E78.5 Hyperlipidemia, unspecified; J30.2 Other seasonal allergic rhinitis; F41.1 Generalized anxiety disorder; I48.91 Unspecified atrial fibrillation; E87.1 Hypo-osmolality and hyponatremia; N64.59 Other signs and symptoms in breast; A49.1 Streptococcal infection, unspecified site; G93.40 Encephalopathy, unspecified; Z86.16 Personal history of COVID-19; Z86.79 Personal history of other diseases of the circulatory system | CPT/HCPCS: 71046 ==

== ENCOUNTER 2022-12-11 10:37 | Inpatient (IN) | payer MEDICARE, BC ==
[2022-12-11] MEDS ORDERED: Albuterol 2.5 MG/0.5 ML NEB ONE (11:07)
[2022-12-11 11:26] LABS: Hemoglobin 12.1 g/dL (12.0-16.0); Mean Corpuscular HGB CONC 33.4 g/dL (32.0-36.0); Mean Corpuscular Hemoglobin 33.3 pg (27.0-31.0); Mean Corpuscular Volume 99.8 fl (78.0-98.0); Mean Platelet Volume 8.8 fL (7.4-10.4); Platelet Count 279 10x3/uL (130-400); RBC Distribution Width 11.7 % (11.5-14.5); Red Blood Cell (RBC) Count 3.64 mill/uL (4.20-5.40); White Blood Cell (WBC) Count 21.7 10x3/uL (4.8-10.8)
[2022-12-11] MEDS ORDERED: Azithromycin 500 MG VIAL ONE (11:47)
[2022-12-11] MEDS ORDERED: cefTRIAXone\\ROCEPHIN 2 GM VIAL ONE (11:47)
[2022-12-11 11:57] LABS: MDiff Complete? YES
[2022-12-11 11:58] LABS: Band 12 % (5-11); Lymphocytes 7 % (21-51); Monocytes 5 % (0-10); Neutrophil 73 % (42-75); Platelet Morphology Comment Appears Adequate; RBC Morphology Normal; Reactive Lymphocytes 3 % (0-10)
[2022-12-11 12:06] LABS: ALT (SGPT) 12 U/L (8-55); AST (SGOT) 18 U/L (5-34); Albumin 4.1 g/dL (3.4-4.8); Alkaline Phosphatase 77 U/L (40-110); Anion Gap 18 mmol/L (10-20); BUN (Urea Nitrogen) 9 mg/dL (9.8-20.1); Bilirubin, Total 0.9 mg/dL (0.2-1.2); Calc. Creatinine Clearance 0 mL/min (70-130); Carbon Dioxide 17 mmol/L (23-31); Chloride 97 mmol/L (98-107); Estimated GFR 74; Globulin 2.7 g/dL (2.4-3.5); Glucose 129 mg/dL (83-110); Potassium 3.5 mmol/L (3.5-5.1); Protein, Total 6.8 g/dL (5.8-8.1); Sodium 128 mmol/L (136-145)
[2022-12-11] MEDS ORDERED: Ibuprofen 200 MG TAB ONE (12:59)
[2022-12-11] MEDS ORDERED: Ondansetron PF 4 MG/2 ML Vial IVP PRN (13:33)
[2022-12-11 15:17] LABS: SARS-CoV-2 NAA Rapid Test Not Detected (NotDetected)
[2022-12-11 15:58] LABS: Lactic Acid 2.4 mmol/L (0.5-2.2)
[2022-12-11] MEDS: Sodium Chloride 0.9% 1,000 ML IV SCH (16:59)
[2022-12-11] MEDS: Famotidine/PF 20 mg/2ml Vial SLOW IVP SCH (20:32)
[2022-12-11] MEDS: Ipratropium/Albuterol 3 ML NEB NEB PRN (21:20)
[2022-12-11] MEDS ORDERED: Melatonin 3 MG TAB PO SCH (23:00)
[2022-12-12] MEDS: Sodium Chloride 0.9% 1,000 ML IV SCH ×2 (01:49→13:03)
[2022-12-12 04:57] LABS: Anion Gap 11 mmol/L (10-20); BUN (Urea Nitrogen) 8 mg/dL (9.8-20.1); Calc. Creatinine Clearance 83 mL/min (70-130); Carbon Dioxide 19 mmol/L (23-31); Chloride 99 mmol/L (98-107); Estimated GFR 90; Glucose 118 mg/dL (83-110); Potassium 3.3 mmol/L (3.5-5.1); Sodium 126 mmol/L (136-145)
[2022-12-12 05:14] LABS: Band 10 % (5-11); Lymphocytes 8 % (21-51); MDiff Complete? YES; Macrocytosis SLIGHT = 6-15 cells (100X) (0-5/hpf); Mean Corpuscular Volume 99.9 fl (78.0-98.0); Monocytes 4 % (0-10); Neutrophil 78 % (42-75); Ovalocytes SLIGHT = 2-5 cells (100X) (0-1/hpf); Platelet Count 226 10x3/uL (130-400); Platelet Morphology Comment Appears Adequate; Red Blood Cell (RBC) Count 3.23 mill/uL (4.20-5.40); White Blood Cell (WBC) Count 19.2 10x3/uL (4.8-10.8)
[2022-12-12] MEDS ORDERED: Potassium Chloride 20 MEQ TAB PO SCH (07:45)
[2022-12-12] MEDS: Famotidine/PF 20 mg/2ml Vial SLOW IVP SCH ×2 (11:35→20:46)
[2022-12-12] MEDS ORDERED: cefTRIAXone\\ROCEPHIN 1 GM in Sodium Chloride 0.9% 100 ML IVPB SCH (12:00)
[2022-12-12] MEDS ORDERED: Azithromycin 500 MG in Sodium Chloride 0.9% 250 ML 250 ML IVPB SCH ×2 (12:00→13:00)
[2022-12-12] MEDS: Dronedarone HCl 400 MG TAB PO SCH ×2 (12:23→17:53)
[2022-12-12] MEDS: Potassium Chloride 20 MEQ in Premix Bag 1 BAG IVPB SCH ×2 (13:03→18:09)
[2022-12-12] MEDS ORDERED: Meropenem 1 GM in Sodium Chloride 0.9% 100 ML IVPB SCH (14:00)
[2022-12-12] MEDS ORDERED: Furosemide 20 MG/2 ML VIAL SLOW IVP SCH (15:00)
[2022-12-12] MEDS ORDERED: VANCOMYCIN IVPB PRN (15:02)
[2022-12-12] MEDS ORDERED: Electrolyte Replacement Protocol 1 EACH FS SCH (15:15)
[2022-12-12] MEDS ORDERED: Vancomycin 1.5 GRAM/300 ML BAG 1.5 GM in Premix Bag 1 BAG IVPB SCH (16:00)
[2022-12-12] MEDS: Budesonide 0.5 MG/2 ML NEB NEB SCH (18:46)
[2022-12-12] MEDS: Ipratropium/Albuterol 3 ML NEB NEB PRN (18:48)
[2022-12-12] MEDS: Lisinopril 10 MG TAB PO SCH (20:46)
[2022-12-12] MEDS: Atorvastatin Calcium 20 MG TAB PO SCH (20:46)
[2022-12-12] MEDS: Montelukast Sodium 10 mg Tablet PO SCH (20:46)
[2022-12-12 21:09] VITALS: BMI 31.2
[2022-12-12] MEDS: Mirtazapine 15 MG Soltab PO SCH (21:16)
[2022-12-12] MEDS: Meropenem 1 GM in Sodium Chloride 0.9% 100 ML IVPB SCH (22:58)
[2022-12-13] MEDS: Meropenem 1 GM in Sodium Chloride 0.9% 100 ML IVPB SCH ×3 (05:21→21:25)
[2022-12-13] MEDS: Levothyroxine 175 MCG TAB PO SCH (06:45)
[2022-12-13 07:00] LABS: #Lymphocytes 1.4 thou/uL (1.20-3.40); #Monocytes 1.3 thou/uL (0.11-0.59); #Neutrophils 15.6 thou/uL (1.40-6.50); %Basophils 0.2 % (0.0-1.0); %Eosinophils 0.2 % (0.0-10.0); %Lymphocytes 7.7 % (21.0-51.0); %Monocytes 7.2 % (0.0-10.0); %Neutrophils 84.8 % (42.0-75.0); Hemoglobin 10.3 g/dL (12.0-16.0); Mean Corpuscular HGB CONC 33.6 g/dL (32.0-36.0); Mean Platelet Volume 8.8 fL (7.4-10.4); Platelet Count 209 10x3/uL (130-400); RBC Distribution Width 11.9 % (11.5-14.5); Red Blood Cell (RBC) Count 3.03 mill/uL (4.20-5.40); White Blood Cell (WBC) Count 18.4 10x3/uL (4.8-10.8)
[2022-12-13 07:21] LABS: Anion Gap 13 mmol/L (10-20); BUN (Urea Nitrogen) 10 mg/dL (9.8-20.1); Calc. Creatinine Clearance 95 mL/min (70-130); Carbon Dioxide 18 mmol/L (23-31); Chloride 95 mmol/L (98-107); Estimated GFR 92; Glucose 86 mg/dL (83-110); Potassium 3.3 mmol/L (3.5-5.1); Sodium 123 mmol/L (136-145)
[2022-12-13] MEDS: Budesonide 0.5 MG/2 ML NEB NEB SCH ×2 (07:26→19:32)
[2022-12-13] MEDS ORDERED: Potassium Chloride 20 MEQ TAB PO SCH (08:00)
[2022-12-13] MEDS ORDERED: Non-Formulary Item 1 EACH (Rabeprazole Sodium [Rabeprazole Sodium] 20 MG Tablet.Dr) PO SCH (09:00)
[2022-12-13] MEDS ORDERED: Non-Formulary Item 1 EACH (Cholecalciferol (Vitamin D3) [Vitamin D3] 5,000 UNITS Capsule) PO SCH (09:00)
[2022-12-13] MEDS ORDERED: Non-Formulary Item 1 EACH (Rivaroxaban [Xarelto] 20 MG Tablet) PO SCH (09:00)
[2022-12-13] MEDS: Amlodipine 10 MG TAB PO SCH (09:36)
[2022-12-13] MEDS: Rivaroxaban 10 MG TAB PO SCH (09:36)
[2022-12-13] MEDS: Dronedarone HCl 400 MG TAB PO SCH ×2 (09:36→17:45)
[2022-12-13] MEDS: Cholecalciferol 1,000 UNITS (25 MCG) TAB PO SCH (09:37)
[2022-12-13] MEDS: Famotidine/PF 20 mg/2ml Vial SLOW IVP SCH (09:37)
[2022-12-13] MEDS: Furosemide 20 MG/2 ML VIAL SLOW IVP SCH (09:38)
[2022-12-13] MEDS: Potassium Chloride 20 MEQ in Premix Bag 1 BAG IVPB SCH ×2 (09:52→12:06)
[2022-12-13] MEDS: Fluticasone Propionate Nasal Spray 16 gm Bottle NASAL SCH (10:20)
[2022-12-13] MEDS ORDERED: VANCOMYCIN 1.25 GM/250 ML BAG 1.25 GM in Premix Bag 1 BAG IVPB SCH (16:00)
[2022-12-13] MEDS: Acetaminophen 325 MG TAB PO PRN (16:14)
[2022-12-13] MEDS: Ipratropium/Albuterol 3 ML NEB NEB PRN (19:33)
[2022-12-13] MEDS: Atorvastatin Calcium 20 MG TAB PO SCH (21:20)
[2022-12-13] MEDS: Montelukast Sodium 10 mg Tablet PO SCH (21:20)
[2022-12-13] MEDS: Mirtazapine 15 MG Soltab PO SCH (21:20)
[2022-12-13] MEDS: Lisinopril 10 MG TAB PO SCH (21:21)
[2022-12-14] MEDS: Ipratropium/Albuterol 3 ML NEB NEB PRN (01:11)
[2022-12-14 04:21] LABS: #Basophils 0.1 thou/uL (0.0-0.2); #Eosinphils 0.2 thou/uL (0.0-0.7); #Lymphocytes 1.7 thou/uL (1.20-3.40); #Monocytes 1.5 thou/uL (0.11-0.59); #Neutrophils 13.6 thou/uL (1.40-6.50); %Basophils 0.3 % (0.0-1.0); %Lymphocytes 10.2 % (21.0-51.0); %Monocytes 8.9 % (0.0-10.0); %Neutrophils 79.6 % (42.0-75.0); Hemoglobin 10.9 g/dL (12.0-16.0); Mean Corpuscular HGB CONC 34.5 g/dL (32.0-36.0); Mean Corpuscular Hemoglobin 34.7 pg (27.0-31.0); Mean Platelet Volume 9.1 fL (7.4-10.4); Platelet Count 231 10x3/uL (130-400); RBC Distribution Width 11.8 % (11.5-14.5); Red Blood Cell (RBC) Count 3.15 mill/uL (4.20-5.40); White Blood Cell (WBC) Count 17.1 10x3/uL (4.8-10.8)
[2022-12-14 04:38] LABS: Anion Gap 14 mmol/L (10-20); BUN (Urea Nitrogen) 10 mg/dL (9.8-20.1); Calc. Creatinine Clearance 95 mL/min (70-130); Calcium 8.5 mg/dL (7.8-10.44); Carbon Dioxide 21 mmol/L (23-31); Chloride 93 mmol/L (98-107); Estimated GFR 92; Glucose 82 mg/dL (83-110); Potassium 3.6 mmol/L (3.5-5.1); Sodium 124 mmol/L (136-145)
[2022-12-14] MEDS: Meropenem 1 GM in Sodium Chloride 0.9% 100 ML IVPB SCH ×3 (05:36→21:32)
[2022-12-14] MEDS: Levothyroxine 175 MCG TAB PO SCH (06:17)
[2022-12-14] MEDS: Budesonide 0.5 MG/2 ML NEB NEB SCH ×2 (07:32→18:51)
[2022-12-14] MEDS: Furosemide 20 MG/2 ML VIAL SLOW IVP SCH (09:02)
[2022-12-14] MEDS: Fluticasone Propionate Nasal Spray 16 gm Bottle NASAL SCH (09:02)
[2022-12-14] MEDS: Cholecalciferol 1,000 UNITS (25 MCG) TAB PO SCH (09:03)
[2022-12-14] MEDS: Dronedarone HCl 400 MG TAB PO SCH ×2 (09:03→17:47)
[2022-12-14] MEDS: Rivaroxaban 10 MG TAB PO SCH (09:03)
[2022-12-14] MEDS: Amlodipine 10 MG TAB PO SCH (09:03)
[2022-12-14] MEDS: Acetaminophen 325 MG TAB PO PRN (15:09)
[2022-12-14 15:21] LABS: Vancomycin, Trough 7.3 ug/mL
[2022-12-14] MEDS: Vancomycin 1.5 GRAM/300 ML BAG 1.5 GM in Premix Bag 1 BAG IVPB SCH (17:47)
[2022-12-14] MEDS: Atorvastatin Calcium 20 MG TAB PO SCH (20:25)
[2022-12-14] MEDS: Mirtazapine 15 MG Soltab PO SCH (20:25)
[2022-12-14] MEDS: Lisinopril 10 MG TAB PO SCH (20:25)
[2022-12-14] MEDS: Montelukast Sodium 10 mg Tablet PO SCH (20:26)
[2022-12-15 04:13] LABS: #Eosinphils 0.1 thou/uL (0.0-0.7); #Lymphocytes 1.5 thou/uL (1.20-3.40); #Monocytes 1.7 thou/uL (0.11-0.59); #Neutrophils 11.1 thou/uL (1.40-6.50); %Basophils 0.1 % (0.0-1.0); %Eosinophils 0.7 % (0.0-10.0); %Lymphocytes 10.1 % (21.0-51.0); %Monocytes 11.8 % (0.0-10.0); %Neutrophils 77.4 % (42.0-75.0); Hemoglobin 10.3 g/dL (12.0-16.0); Mean Corpuscular Hemoglobin 33.5 pg (27.0-31.0); Mean Corpuscular Volume 98.7 fl (78.0-98.0); Platelet Count 259 10x3/uL (130-400); RBC Distribution Width 11.7 % (11.5-14.5); Red Blood Cell (RBC) Count 3.06 mill/uL (4.20-5.40); White Blood Cell (WBC) Count 14.3 10x3/uL (4.8-10.8)
[2022-12-15 04:33] LABS: Anion Gap 14 mmol/L (10-20); BUN (Urea Nitrogen) 10 mg/dL (9.8-20.1); Calc. Creatinine Clearance 94 mL/min (70-130); Calcium 8.4 mg/dL (7.8-10.44); Carbon Dioxide 23 mmol/L (23-31); Chloride 91 mmol/L (98-107); Estimated GFR 92; Glucose 106 mg/dL (83-110); Magnesium 1.9 mg/dL (1.6-2.6); Sodium 125 mmol/L (136-145)
[2022-12-15 04:49] LABS: Phosphorus 1.4 mg/dL (2.3-4.7)
[2022-12-15] MEDS ORDERED: PHOS-NAK 1 PKT PACK PO SCH ×2 (05:00→06:30)
[2022-12-15] MEDS: Meropenem 1 GM in Sodium Chloride 0.9% 100 ML IVPB SCH ×3 (05:13→21:14)
[2022-12-15] MEDS: Levothyroxine 150 MCG TAB PO SCH (05:13)
[2022-12-15] MEDS: Budesonide 0.5 MG/2 ML NEB NEB SCH ×2 (07:22→18:32)
[2022-12-15] MEDS ORDERED: Potassium Chloride 20 MEQ TAB PO SCH (08:00)
[2022-12-15] MEDS ORDERED: Magnesium 2 GM/50 ML(in water) 2 GM in Premix Bag 1 BAG IVPB SCH (08:00)
[2022-12-15] MEDS ORDERED: Ipratropium/Albuterol 3 ML NEB NEB PRN (08:22)
[2022-12-15] MEDS: Rivaroxaban 10 MG TAB PO SCH (08:41)
[2022-12-15] MEDS: Cholecalciferol 1,000 UNITS (25 MCG) TAB PO SCH (08:41)
[2022-12-15] MEDS: Dronedarone HCl 400 MG TAB PO SCH ×2 (08:41→15:02)
[2022-12-15] MEDS: Saccharomyces boulardii 250 MG CAP PO SCH (08:41)
[2022-12-15] MEDS: Aspirin 81 mg Enteric Coated Tablet PO SCH (08:41)
[2022-12-15] MEDS: Fluticasone Propionate Nasal Spray 16 gm Bottle NASAL SCH (08:52)
[2022-12-15] MEDS: Cyanocobalamin (Vitamin B-12) 1,000 MCG TAB PO SCH (08:53)
[2022-12-15] MEDS: Amlodipine 5 MG TAB PO SCH (08:53)
[2022-12-15] MEDS: Multivit, Therapeutic 1 TAB PO SCH (08:53)
[2022-12-15] MEDS ORDERED: Ipratropium/Albuterol 3 ML NEB NEB SCH (10:30)
[2022-12-15] MEDS: Ipratropium/Albuterol 3 ML NEB NEB SCH ×3 (10:58→18:32)
[2022-12-15] MEDS: PHOS-NAK 1 PKT PACK PO SCH ×3 (11:30→20:48)
[2022-12-15] MEDS: Vancomycin 1.5 GRAM/300 ML BAG 1.5 GM in Premix Bag 1 BAG IVPB SCH (15:03)
[2022-12-15] MEDS: Montelukast Sodium 10 mg Tablet PO SCH (20:49)
[2022-12-15] MEDS: Atorvastatin Calcium 20 MG TAB PO SCH (20:49)
[2022-12-15] MEDS: Lisinopril 10 MG TAB PO SCH (20:49)
[2022-12-15] MEDS: Mirtazapine 15 MG Soltab PO SCH (20:49)
[2022-12-16 04:56] LABS: Anion Gap 12 mmol/L (10-20); BUN (Urea Nitrogen) 9 mg/dL (9.8-20.1); Calc. Creatinine Clearance 93 mL/min (70-130); Calcium 8.2 mg/dL (7.8-10.44); Carbon Dioxide 29 mmol/L (23-31); Chloride 92 mmol/L (98-107); Estimated GFR 91; Glucose 108 mg/dL (83-110); Magnesium 2.4 mg/dL (1.6-2.6); Potassium 3.5 mmol/L (3.5-5.1); Sodium 129 mmol/L (136-145)
[2022-12-16 05:02] LABS: Band 3 % (5-11); Eosinophils 1 % (0-10); Hemoglobin 10.5 g/dL (12.0-16.0); Lymphocytes 10 % (21-51); MDiff Complete? YES; Macrocytosis MODERATE=16-30 cells (100X) (0-5/hpf); Mean Platelet Volume 8.6 fL (7.4-10.4); Monocytes 18 % (0-10); Neutrophil 68 % (42-75); Ovalocytes SLIGHT = 2-5 cells (100X) (0-1/hpf); Platelet Count 290 10x3/uL (130-400); Platelet Morphology Comment Appears Adequate; RBC Distribution Width 11.9 % (11.5-14.5); Red Blood Cell (RBC) Count 3.07 mill/uL (4.20-5.40); White Blood Cell (WBC) Count 15.2 10x3/uL (4.8-10.8)
[2022-12-16 05:05] LABS: Phosphorus 2.6 mg/dL (2.3-4.7)
[2022-12-16] MEDS: Meropenem 1 GM in Sodium Chloride 0.9% 100 ML IVPB SCH ×3 (05:51→21:47)
[2022-12-16] MEDS: Levothyroxine 150 MCG TAB PO SCH (05:52)
[2022-12-16] MEDS: Budesonide 0.5 MG/2 ML NEB NEB SCH ×2 (07:31→18:21)
[2022-12-16] MEDS: Ipratropium/Albuterol 3 ML NEB NEB SCH ×4 (07:31→18:20)
[2022-12-16] MEDS ORDERED: Potassium Chloride 20 MEQ TAB PO SCH (08:00)
[2022-12-16] MEDS: Dronedarone HCl 400 MG TAB PO SCH ×2 (08:31→18:21)
[2022-12-16] MEDS: Cyanocobalamin (Vitamin B-12) 1,000 MCG TAB PO SCH (08:31)
[2022-12-16] MEDS: Rivaroxaban 10 MG TAB PO SCH (08:31)
[2022-12-16] MEDS: Cholecalciferol 1,000 UNITS (25 MCG) TAB PO SCH (08:31)
[2022-12-16] MEDS: Aspirin 81 mg Enteric Coated Tablet PO SCH (08:32)
[2022-12-16] MEDS: Amlodipine 5 MG TAB PO SCH (08:32)
[2022-12-16] MEDS: Saccharomyces boulardii 250 MG CAP PO SCH (08:32)
[2022-12-16] MEDS: Fluticasone Propionate Nasal Spray 16 gm Bottle NASAL SCH (08:33)
[2022-12-16] MEDS: Multivit, Therapeutic 1 TAB PO SCH (08:33)
[2022-12-16] MEDS: Mirtazapine 15 MG Soltab PO SCH (20:49)
[2022-12-16] MEDS: Montelukast Sodium 10 mg Tablet PO SCH (20:50)
[2022-12-16] MEDS: Atorvastatin Calcium 20 MG TAB PO SCH (20:50)
[2022-12-16] MEDS: Lisinopril 10 MG TAB PO SCH (20:50)
[2022-12-16] MEDS: Acetaminophen 325 MG TAB PO PRN (21:47)
[2022-12-17 04:31] LABS: Anion Gap 10 mmol/L (10-20); BUN (Urea Nitrogen) 10 mg/dL (9.8-20.1); Calc. Creatinine Clearance 100 mL/min (70-130); Calcium 8.4 mg/dL (7.8-10.44); Carbon Dioxide 28 mmol/L (23-31); Chloride 94 mmol/L (98-107); Estimated GFR 93; Glucose 100 mg/dL (83-110); Potassium 4.2 mmol/L (3.5-5.1); Sodium 128 mmol/L (136-145)
[2022-12-17 04:55] LABS: Eosinophils 1 % (0-10); Hemoglobin 9.8 g/dL (12.0-16.0); Hypochromia SLIGHT = 6-15 cells (100X) (0-5/hpf); Lymphocytes 31 % (21-51); MDiff Complete? YES; Macrocytosis SLIGHT = 6-15 cells (100X) (0-5/hpf); Mean Corpuscular HGB CONC 33.3 g/dL (32.0-36.0); Mean Corpuscular Hemoglobin 33.7 pg (27.0-31.0); Mean Platelet Volume 8.6 fL (7.4-10.4); Monocytes 13 % (0-10); Neutrophil 53 % (42-75); Platelet Count 274 10x3/uL (130-400); Platelet Morphology Comment Appears Adequate; Reactive Lymphocytes 2 % (0-10); White Blood Cell (WBC) Count 15.9 10x3/uL (4.8-10.8)
[2022-12-17] MEDS: Meropenem 1 GM in Sodium Chloride 0.9% 100 ML IVPB SCH (05:51)
[2022-12-17] MEDS: Levothyroxine 150 MCG TAB PO SCH (05:52)
[2022-12-17] MEDS: Multivit, Therapeutic 1 TAB PO SCH (07:35)
[2022-12-17] MEDS: Rivaroxaban 10 MG TAB PO SCH (07:36)
[2022-12-17] MEDS: Fluticasone Propionate Nasal Spray 16 gm Bottle NASAL SCH (07:36)
[2022-12-17] MEDS: Saccharomyces boulardii 250 MG CAP PO SCH (07:36)
[2022-12-17] MEDS: Cholecalciferol 1,000 UNITS (25 MCG) TAB PO SCH (07:36)
[2022-12-17] MEDS: Aspirin 81 mg Enteric Coated Tablet PO SCH (07:36)
[2022-12-17] MEDS: Cyanocobalamin (Vitamin B-12) 1,000 MCG TAB PO SCH (07:36)
[2022-12-17] MEDS: Amlodipine 5 MG TAB PO SCH (07:36)
[2022-12-17] MEDS: Dronedarone HCl 400 MG TAB PO SCH ×2 (07:36→17:10)
[2022-12-17] MEDS: Ipratropium/Albuterol 3 ML NEB NEB SCH ×4 (08:12→18:25)
[2022-12-17] MEDS: Budesonide 0.5 MG/2 ML NEB NEB SCH ×2 (08:13→18:25)
[2022-12-17] MEDS ORDERED: Cefdinir 300 MG CAP PO SCH (13:00)
[2022-12-17] MEDS ORDERED: predniSONE 20 MG TAB PO SCH (15:09)
[2022-12-17] MEDS: Atorvastatin Calcium 20 MG TAB PO SCH (21:06)
[2022-12-17] MEDS: Mirtazapine 15 MG Soltab PO SCH (21:06)
[2022-12-17] MEDS: Lisinopril 10 MG TAB PO SCH (21:06)
[2022-12-17] MEDS: Montelukast Sodium 10 mg Tablet PO SCH (21:06)
[2022-12-17] MEDS: Melatonin 3 MG TAB PO PRN (21:06)
[2022-12-17] MEDS: Benzonatate 100 MG CAP PO PRN (23:37)
[2022-12-18 04:00] LABS: #Eosinphils 0.1 thou/uL (0.0-0.7); #Lymphocytes 1.7 thou/uL (1.20-3.40); #Monocytes 0.7 thou/uL (0.11-0.59); #Neutrophils 11.2 thou/uL (1.40-6.50); %Basophils 0.1 % (0.0-1.0); %Eosinophils 0.4 % (0.0-10.0); %Lymphocytes 12.1 % (21.0-51.0); %Monocytes 4.9 % (0.0-10.0); %Neutrophils 82.5 % (42.0-75.0); Hemoglobin 11.2 g/dL (12.0-16.0); Mean Corpuscular HGB CONC 32.7 g/dL (32.0-36.0); Mean Corpuscular Hemoglobin 33.2 pg (27.0-31.0); Mean Platelet Volume 8.2 fL (7.4-10.4); Platelet Count 334 10x3/uL (130-400); RBC Distribution Width 11.9 % (11.5-14.5); Red Blood Cell (RBC) Count 3.37 mill/uL (4.20-5.40); White Blood Cell (WBC) Count 13.6 10x3/uL (4.8-10.8)
[2022-12-18 04:32] LABS: Anion Gap 14 mmol/L (10-20); BUN (Urea Nitrogen) 11 mg/dL (9.8-20.1); Calc. Creatinine Clearance 91 mL/min (70-130); Calcium 8.4 mg/dL (7.8-10.44); Carbon Dioxide 24 mmol/L (23-31); Chloride 89 mmol/L (98-107); Estimated GFR 91; Glucose 141 mg/dL (83-110); Potassium 4.8 mmol/L (3.5-5.1); Sodium 122 mmol/L (136-145)
[2022-12-18] MEDS: Levothyroxine 150 MCG TAB PO SCH (05:54)
[2022-12-18] MEDS: Cefdinir 300 MG CAP PO SCH ×2 (05:54→17:48)
[2022-12-18] MEDS: Ipratropium/Albuterol 3 ML NEB NEB SCH ×4 (07:14→19:24)
[2022-12-18] MEDS: Budesonide 0.5 MG/2 ML NEB NEB SCH ×2 (07:14→19:25)
[2022-12-18] MEDS: Amlodipine 5 MG TAB PO SCH (08:15)
[2022-12-18] MEDS: Dronedarone HCl 400 MG TAB PO SCH ×2 (08:15→17:48)
[2022-12-18] MEDS: Rivaroxaban 10 MG TAB PO SCH (08:15)
[2022-12-18] MEDS: Saccharomyces boulardii 250 MG CAP PO SCH (08:15)
[2022-12-18] MEDS: predniSONE 20 MG TAB PO SCH (08:16)
[2022-12-18] MEDS: Multivit, Therapeutic 1 TAB PO SCH (08:17)
[2022-12-18] MEDS: Aspirin 81 mg Enteric Coated Tablet PO SCH (08:17)
[2022-12-18] MEDS: Cholecalciferol 1,000 UNITS (25 MCG) TAB PO SCH (08:17)
[2022-12-18] MEDS: Cyanocobalamin (Vitamin B-12) 1,000 MCG TAB PO SCH (08:17)
[2022-12-18] MEDS: Azithromycin 250 MG TAB PO SCH (08:17)
[2022-12-18] MEDS: Fluticasone Propionate Nasal Spray 16 gm Bottle NASAL SCH (09:36)
[2022-12-18] MEDS: Benzonatate 100 MG CAP PO PRN ×2 (09:52→20:20)
[2022-12-18 15:45] LABS: Creatinine, Urine 51.54 mg/dL (47-110)
[2022-12-18 15:45] LABS: Sodium 123 mmol/L (136-145)
[2022-12-18] MEDS: Lisinopril 10 MG TAB PO SCH (20:19)
[2022-12-18] MEDS: Atorvastatin Calcium 20 MG TAB PO SCH (20:19)
[2022-12-18] MEDS: Montelukast Sodium 10 mg Tablet PO SCH (20:19)
[2022-12-18] MEDS: Mirtazapine 15 MG Soltab PO SCH (20:19)
[2022-12-18] MEDS ORDERED: Haloperidol Lactate 5 MG/ML VIAL SLOW IVP SCH (22:00)
[2022-12-18] MEDS: Melatonin 3 MG TAB PO PRN (22:34)
[2022-12-19] MEDS: Cefdinir 300 MG CAP PO SCH ×2 (06:25→18:25)
[2022-12-19] MEDS: Levothyroxine 150 MCG TAB PO SCH (06:26)
[2022-12-19 06:36] LABS: #Basophils 0.1 thou/uL (0.0-0.2); #Eosinphils 0.3 thou/uL (0.0-0.7); #Lymphocytes 3.7 thou/uL (1.20-3.40); #Monocytes 2.1 thou/uL (0.11-0.59); #Neutrophils 9.6 thou/uL (1.40-6.50); %Basophils 0.4 % (0.0-1.0); %Lymphocytes 23.7 % (21.0-51.0); %Monocytes 13.1 % (0.0-10.0); %Neutrophils 60.9 % (42.0-75.0); Hemoglobin 10.3 g/dL (12.0-16.0); Mean Corpuscular HGB CONC 33.8 g/dL (32.0-36.0); Mean Corpuscular Hemoglobin 33.4 pg (27.0-31.0); Mean Corpuscular Volume 98.9 fl (78.0-98.0); Mean Platelet Volume 8.1 fL (7.4-10.4); Platelet Count 367 10x3/uL (130-400); RBC Distribution Width 12.2 % (11.5-14.5); Red Blood Cell (RBC) Count 3.08 mill/uL (4.20-5.40); White Blood Cell (WBC) Count 15.7 10x3/uL (4.8-10.8)
[2022-12-19] MEDS: Budesonide 0.5 MG/2 ML NEB NEB SCH ×2 (06:43→19:39)
[2022-12-19] MEDS: Ipratropium/Albuterol 3 ML NEB NEB SCH ×4 (06:47→19:38)
[2022-12-19 07:31] LABS: Anion Gap 11 mmol/L (10-20); BUN (Urea Nitrogen) 10 mg/dL (9.8-20.1); Calc. Creatinine Clearance 91 mL/min (70-130); Calcium 8.6 mg/dL (7.8-10.44); Carbon Dioxide 31 mmol/L (23-31); Chloride 88 mmol/L (98-107); Estimated GFR 91; Glucose 92 mg/dL (83-110); Potassium 4.3 mmol/L (3.5-5.1); Sodium 126 mmol/L (136-145)
[2022-12-19] MEDS: Rivaroxaban 10 MG TAB PO SCH (08:42)
[2022-12-19] MEDS: Cyanocobalamin (Vitamin B-12) 1,000 MCG TAB PO SCH (08:42)
[2022-12-19] MEDS: Dronedarone HCl 400 MG TAB PO SCH ×2 (08:42→18:25)
[2022-12-19] MEDS: Azithromycin 250 MG TAB PO SCH (08:42)
[2022-12-19] MEDS: predniSONE 20 MG TAB PO SCH (08:42)
[2022-12-19] MEDS: Benzonatate 100 MG CAP PO PRN ×2 (08:43→21:15)
[2022-12-19] MEDS: Saccharomyces boulardii 250 MG CAP PO SCH (08:43)
[2022-12-19] MEDS: Amlodipine 5 MG TAB PO SCH (08:43)
[2022-12-19] MEDS: Acetaminophen 325 MG TAB PO PRN ×2 (08:43→21:15)
[2022-12-19] MEDS: Multivit, Therapeutic 1 TAB PO SCH (08:44)
[2022-12-19] MEDS: Cholecalciferol 1,000 UNITS (25 MCG) TAB PO SCH (08:44)
[2022-12-19] MEDS: Aspirin 81 mg Enteric Coated Tablet PO SCH (08:44)
[2022-12-19] MEDS: Fluticasone Propionate Nasal Spray 16 gm Bottle NASAL SCH (08:44)
[2022-12-19] MEDS ORDERED: Bisacodyl 10 MG SUPP PR PRN (15:16)
[2022-12-19] MEDS: Atorvastatin Calcium 20 MG TAB PO SCH (21:12)
[2022-12-19] MEDS: Lisinopril 10 MG TAB PO SCH (21:13)
[2022-12-19] MEDS: Mirtazapine 15 MG Soltab PO SCH (21:14)
[2022-12-19] MEDS: Montelukast Sodium 10 mg Tablet PO SCH (21:14)
[2022-12-19] MEDS: Melatonin 3 MG TAB PO PRN (21:15)
[2022-12-20 06:21] LABS: #Basophils 0.1 thou/uL (0.0-0.2); #Eosinphils 0.1 thou/uL (0.0-0.7); #Lymphocytes 3.5 thou/uL (1.20-3.40); #Monocytes 1.5 thou/uL (0.11-0.59); #Neutrophils 9.3 thou/uL (1.40-6.50); %Basophils 0.5 % (0.0-1.0); %Eosinophils 0.7 % (0.0-10.0); %Lymphocytes 24.4 % (21.0-51.0); %Monocytes 10.3 % (0.0-10.0); %Neutrophils 64.1 % (42.0-75.0); Hemoglobin 10.1 g/dL (12.0-16.0); Mean Corpuscular HGB CONC 34.1 g/dL (32.0-36.0); Mean Corpuscular Hemoglobin 33.8 pg (27.0-31.0); Platelet Count 393 10x3/uL (130-400); RBC Distribution Width 12.2 % (11.5-14.5); Red Blood Cell (RBC) Count 2.98 mill/uL (4.20-5.40); White Blood Cell (WBC) Count 14.5 10x3/uL (4.8-10.8)
[2022-12-20] MEDS: Cefdinir 300 MG CAP PO SCH ×2 (06:24→17:30)
[2022-12-20] MEDS: Levothyroxine 150 MCG TAB PO SCH (06:25)
[2022-12-20] MEDS: Budesonide 0.5 MG/2 ML NEB NEB SCH ×2 (06:30→18:25)
[2022-12-20] MEDS: Ipratropium/Albuterol 3 ML NEB NEB SCH ×4 (06:39→18:24)
[2022-12-20 06:42] LABS: Anion Gap 13 mmol/L (10-20); BUN (Urea Nitrogen) 13 mg/dL (9.8-20.1); Calc. Creatinine Clearance 89 mL/min (70-130); Calcium 8.4 mg/dL (7.8-10.44); Carbon Dioxide 30 mmol/L (23-31); Chloride 92 mmol/L (98-107); Estimated GFR 91; Glucose 89 mg/dL (83-110); Potassium 4.3 mmol/L (3.5-5.1); Sodium 131 mmol/L (136-145)
[2022-12-20] MEDS: Cholecalciferol 1,000 UNITS (25 MCG) TAB PO SCH (09:08)
[2022-12-20] MEDS: Azithromycin 250 MG TAB PO SCH (09:08)
[2022-12-20] MEDS: Rivaroxaban 10 MG TAB PO SCH (09:09)
[2022-12-20] MEDS: predniSONE 20 MG TAB PO SCH (09:09)
[2022-12-20] MEDS: Cyanocobalamin (Vitamin B-12) 1,000 MCG TAB PO SCH (09:09)
[2022-12-20] MEDS: Dronedarone HCl 400 MG TAB PO SCH ×2 (09:09→17:30)
[2022-12-20] MEDS: Saccharomyces boulardii 250 MG CAP PO SCH (09:09)
[2022-12-20] MEDS: Amlodipine 5 MG TAB PO SCH (09:09)
[2022-12-20] MEDS: Aspirin 81 mg Enteric Coated Tablet PO SCH (09:09)
[2022-12-20] MEDS: Multivit, Therapeutic 1 TAB PO SCH (09:10)
[2022-12-20] MEDS: Fluticasone Propionate Nasal Spray 16 gm Bottle NASAL SCH (09:10)
[2022-12-20] MEDS: Mirtazapine 15 MG Soltab PO SCH (20:19)
[2022-12-20] MEDS: Montelukast Sodium 10 mg Tablet PO SCH (20:19)
[2022-12-20] MEDS: Lisinopril 10 MG TAB PO SCH (20:19)
[2022-12-20] MEDS: Atorvastatin Calcium 20 MG TAB PO SCH (20:20)
[2022-12-21 05:58] LABS: #Basophils 0.1 thou/uL (0.0-0.2); #Eosinphils 0.2 thou/uL (0.0-0.7); #Lymphocytes 4.4 thou/uL (1.20-3.40); #Monocytes 1.4 thou/uL (0.11-0.59); #Neutrophils 9.7 thou/uL (1.40-6.50); %Basophils 0.4 % (0.0-1.0); %Eosinophils 1.1 % (0.0-10.0); %Monocytes 9.1 % (0.0-10.0); %Neutrophils 61.4 % (42.0-75.0); Hemoglobin 9.5 g/dL (12.0-16.0); Mean Corpuscular Hemoglobin 34.3 pg (27.0-31.0); Mean Platelet Volume 7.7 fL (7.4-10.4); Platelet Count 446 10x3/uL (130-400); RBC Distribution Width 12.3 % (11.5-14.5); Red Blood Cell (RBC) Count 2.78 mill/uL (4.20-5.40); White Blood Cell (WBC) Count 15.7 10x3/uL (4.8-10.8)
[2022-12-21] MEDS: Levothyroxine 150 MCG TAB PO SCH (06:20)
[2022-12-21] MEDS: Cefdinir 300 MG CAP PO SCH ×2 (06:21→18:18)
[2022-12-21 06:24] LABS: Anion Gap 12 mmol/L (10-20); BUN (Urea Nitrogen) 12 mg/dL (9.8-20.1); Calc. Creatinine Clearance 83 mL/min (70-130); Calcium 8.4 mg/dL (7.8-10.44); Carbon Dioxide 33 mmol/L (23-31); Chloride 93 mmol/L (98-107); Estimated GFR 90; Glucose 87 mg/dL (83-110); Potassium 4.6 mmol/L (3.5-5.1); Sodium 133 mmol/L (136-145)
[2022-12-21] MEDS: Budesonide 0.5 MG/2 ML NEB NEB SCH ×2 (07:04→19:19)
[2022-12-21] MEDS: Ipratropium/Albuterol 3 ML NEB NEB SCH ×4 (07:04→19:19)
[2022-12-21] MEDS: Amlodipine 5 MG TAB PO SCH (08:41)
[2022-12-21] MEDS: Dronedarone HCl 400 MG TAB PO SCH ×2 (08:42→18:18)
[2022-12-21] MEDS: Aspirin 81 mg Enteric Coated Tablet PO SCH (08:42)
[2022-12-21] MEDS: predniSONE 20 MG TAB PO SCH (08:42)
[2022-12-21] MEDS: Rivaroxaban 10 MG TAB PO SCH (08:43)
[2022-12-21] MEDS: Cyanocobalamin (Vitamin B-12) 1,000 MCG TAB PO SCH (08:43)
[2022-12-21] MEDS: Saccharomyces boulardii 250 MG CAP PO SCH (08:43)
[2022-12-21] MEDS: Multivit, Therapeutic 1 TAB PO SCH (08:43)
[2022-12-21] MEDS: Cholecalciferol 1,000 UNITS (25 MCG) TAB PO SCH (11:24)
[2022-12-21] MEDS: Fluticasone Propionate Nasal Spray 16 gm Bottle NASAL SCH (11:29)
[2022-12-21] MEDS: Lisinopril 10 MG TAB PO SCH (21:05)
[2022-12-21] MEDS: Mirtazapine 15 MG Soltab PO SCH (21:05)
[2022-12-21] MEDS: Acetaminophen 325 MG TAB PO PRN (21:05)
[2022-12-21] MEDS: Montelukast Sodium 10 mg Tablet PO SCH (21:05)
[2022-12-21] MEDS: Atorvastatin Calcium 20 MG TAB PO SCH (21:05)
[2022-12-21] MEDS: Melatonin 3 MG TAB PO PRN (21:06)
[2022-12-22] MEDS: Levothyroxine 150 MCG TAB PO SCH (04:56)
[2022-12-22 06:29] LABS: #Basophils 0.1 thou/uL (0.0-0.2); #Eosinphils 0.3 thou/uL (0.0-0.7); #Lymphocytes 4.8 thou/uL (1.20-3.40); #Monocytes 1.5 thou/uL (0.11-0.59); %Basophils 0.3 % (0.0-1.0); %Lymphocytes 28.8 % (21.0-51.0); %Neutrophils 59.9 % (42.0-75.0); Hemoglobin 9.5 g/dL (12.0-16.0); Mean Corpuscular HGB CONC 33.7 g/dL (32.0-36.0); Mean Corpuscular Hemoglobin 33.8 pg (27.0-31.0); Mean Platelet Volume 7.7 fL (7.4-10.4); Platelet Count 439 10x3/uL (130-400); RBC Distribution Width 12.6 % (11.5-14.5); Red Blood Cell (RBC) Count 2.81 mill/uL (4.20-5.40); White Blood Cell (WBC) Count 16.6 10x3/uL (4.8-10.8)
[2022-12-22 06:56] LABS: Anion Gap 10 mmol/L (10-20); BUN (Urea Nitrogen) 9 mg/dL (9.8-20.1); Calc. Creatinine Clearance 78 mL/min (70-130); Calcium 8.2 mg/dL (7.8-10.44); Carbon Dioxide 31 mmol/L (23-31); Chloride 94 mmol/L (98-107); Estimated GFR 88; Glucose 83 mg/dL (83-110); Potassium 4.2 mmol/L (3.5-5.1); Sodium 131 mmol/L (136-145)
[2022-12-22] MEDS: Budesonide 0.5 MG/2 ML NEB NEB SCH (07:09)
[2022-12-22] MEDS: Ipratropium/Albuterol 3 ML NEB NEB SCH ×2 (07:10→10:37)
[2022-12-22] MEDS: predniSONE 20 MG TAB PO SCH (08:53)
[2022-12-22] MEDS: Dronedarone HCl 400 MG TAB PO SCH (08:58)
[2022-12-22] MEDS: Rivaroxaban 10 MG TAB PO SCH (08:59)
[2022-12-22] MEDS: Amlodipine 5 MG TAB PO SCH (09:02)
[2022-12-22] MEDS: Cyanocobalamin (Vitamin B-12) 1,000 MCG TAB PO SCH (09:02)
[2022-12-22] MEDS: Aspirin 81 mg Enteric Coated Tablet PO SCH (09:02)
[2022-12-22] MEDS: Saccharomyces boulardii 250 MG CAP PO SCH (09:04)
[2022-12-22] MEDS: Cholecalciferol 1,000 UNITS (25 MCG) TAB PO SCH (09:04)
[2022-12-22] MEDS: Multivit, Therapeutic 1 TAB PO SCH (09:10)
[2022-12-22] MEDS: Fluticasone Propionate Nasal Spray 16 gm Bottle NASAL SCH (11:16)
[2022-12-22 12:19] VITALS: BP 129/66; TEMP 97.9
== END 2022-12-22 14:50 | disposition home health service (06) | DRG 871 ==
LOC: SUATTDRO 10:37 → ERS 10:37 → 2NO 13:21 → CCU 12-12 14:15 → IMCU/EMU 12-12 22:21 → T4-A 12-21 12:21
PROVIDERS: ADMIT Internal Medicine; ATTEND Internal Medicine
PROC: 3E03329 Introduction of Other Anti-infective into Peripheral Vein, Percutaneous Approach (ICD-10-PCS; 2022-12-11)
PROC: 5A09357 Assistance with Respiratory Ventilation, Less than 24 Consecutive Hours, Continuous Positive Airway Pressure (ICD-10-PCS; principal; 2022-12-12)
PROC: 5A0955A Assistance with Respiratory Ventilation, Greater than 96 Consecutive Hours, High Flow/Velocity Cannula (ICD-10-PCS; 2022-12-12)
DX: A41.9 Sepsis, unspecified organism (principal); J18.9 Pneumonia, unspecified organism; J80 Acute respiratory distress syndrome; I50.30 Unspecified diastolic (congestive) heart failure; E87.1 Hypo-osmolality and hyponatremia; E87.20 Acidosis, unspecified; R65.20 Severe sepsis without septic shock; E03.9 Hypothyroidism, unspecified; E78.5 Hyperlipidemia, unspecified; I48.91 Unspecified atrial fibrillation; F41.9 Anxiety disorder, unspecified; K21.9 Gastro-esophageal reflux disease without esophagitis; I11.0 Hypertensive heart disease with heart failure; F32.A Depression, unspecified; E87.6 Hypokalemia; E83.39 Other disorders of phosphorus metabolism; E83.42 Hypomagnesemia; Z20.822 Contact with and (suspected) exposure to COVID-19; Z88.8 Allergy status to other drugs, medicaments and biological substances; Z88.1 Allergy status to other antibiotic agents; Z88.2 Allergy status to sulfonamides; Z88.0 Allergy status to penicillin; Z79.899 Other long term (current) drug therapy; Z98.890 Other specified postprocedural states; Z90.710 Acquired absence of both cervix and uterus; Z79.01 Long term (current) use of anticoagulants
CPT/HCPCS: 36415; 71045; 71250; 80048; 80053; 80202; 82274; 82570; 83605; 83735; 83880; 83930; 83935; 84100; 84133; 84145; 84300; 84484; 85025; 86140; 87040; 87070; 87081; 87205; 87804; 87811; 93005; 93970; 94640; 94660; 94760; 96361; 96365; 96367; J0456; J0696; J1630; J1650; J1940; J2185; J3370; J3475; J3480; J3490; J7030; J7050; J7512; J7611; J7620; J7626; S0028; U0002

== ENCOUNTER 2023-01-29 09:49 | Outpatient (CLI) | payer MEDICARE, BC | END 2023-01-29 09:50 | disposition home or self-care (01) | LOC: RAD-FRANK 09:49 | PROVIDERS: ATTEND Nurse Practitioner Family | DX: R05.9 Cough, unspecified (principal) | CPT/HCPCS: 71046 ==

== ENCOUNTER 2023-06-17 23:36 | Inpatient (IN) | payer MEDICARE, BC ==
[2023-06-18 00:36] LABS: #Basophils 0.1 thou/uL (0.0-0.2); #Eosinphils 0.1 thou/uL (0.0-0.7); #Neutrophils 10.9 thou/uL (1.40-6.50); %Basophils 0.5 % (0.0-1.0); %Eosinophils 0.4 % (0.0-10.0); %Lymphocytes 7.2 % (21.0-51.0); %Monocytes 7.5 % (0.0-10.0); Hematocrit 33.4 % (36.0-47.0); Hemoglobin 11.2 g/dL (12.0-16.0); Mean Corpuscular HGB CONC 33.5 g/dL (32.0-36.0); Mean Corpuscular Hemoglobin 32.6 pg (27.0-31.0); Mean Corpuscular Volume 97.1 fl (78.0-98.0); Platelet Count 271 10x3/uL (130-400); RBC Distribution Width 12.8 % (11.5-14.5); Red Blood Cell (RBC) Count 3.44 mill/uL (4.20-5.40)
[2023-06-18 01:02] LABS: ALT (SGPT) 8 U/L (8-55); AST (SGOT) 16 U/L (5-34); Alkaline Phosphatase 90 U/L (40-110); Anion Gap 13 mmol/L (10-20); BUN (Urea Nitrogen) 11 mg/dL (9.8-20.1); Bilirubin, Total 0.6 mg/dL (0.2-1.2); Calc. Creatinine Clearance 0 mL/min (70-130); Calcium 8.5 mg/dL (7.8-10.44); Carbon Dioxide 24 mmol/L (23-31); Chloride 94 mmol/L (98-107); Estimated GFR 85; Globulin 2.7 g/dL (2.4-3.5); Glucose 133 mg/dL (83-110); Potassium 3.9 mmol/L (3.5-5.1); Protein, Total 6.7 g/dL (5.8-8.1); Sodium 127 mmol/L (136-145)
[2023-06-18 01:05] LABS: Troponin I Less than 0.010 ng/mL (< 0.028)
[2023-06-18 02:50] LABS: Bilirubin 1+ (Negative); Blood, Urine 2+ (Negative); CAUTI Indications for Culture Alt mental st,lethar; Clarity Turbid (Clear); Glucose, Urine (Dipstick) Normal (Negative); Ketone, Urine Trace mg/dL (Negative); Leukocyte 25 Leu/uL (Negative); Nitrite 1+ (Negative); Protein, Urine (Dipstick) 20 mg/dL (Neg-Trace); RBC/HPF 21-50 HPF (0-3); Specific Gravity, Urine 1.013 (1.002-1.036); Squamous Epithelial 0-3 HPF (0-3)
[2023-06-18 02:52] LABS: Bacteria/HPF 3+ HPF (None Seen)
[2023-06-18 02:54] LABS: Urine Culture Reflex Yes Yes
[2023-06-18] MEDS ORDERED: cefTRIAXone (ROCEPHIN) 1 GM VIAL ONE (03:15)
[2023-06-18] MEDS ORDERED: Vancomycin 1 GM/200 ML (FROZEN) BAG ONE (03:34)
[2023-06-18] MEDS ORDERED: Bisacodyl 10 MG SUPP PR PRN (08:41)
[2023-06-18] MEDS ORDERED: Senokot S 8.6-50 MG TAB PO PRN (08:41)
[2023-06-18 09:49] LABS: Sodium 130 mmol/L (136-145)
[2023-06-18] MEDS: Famotidine 20 MG TAB PO SCH ×2 (10:22→21:42)
[2023-06-18] MEDS: Ondansetron PF 4 MG/2 ML Vial IVP PRN (11:42)
[2023-06-18 13:37] LABS: Sodium 129 mmol/L (136-145)
[2023-06-18] MEDS ORDERED: Lisinopril 10 MG TAB PO SCH (16:30)
[2023-06-18] MEDS: Dronedarone HCl 400 MG TAB PO SCH (16:34)
[2023-06-18 18:04] LABS: Sodium 124 mmol/L (136-145)
[2023-06-18] MEDS: Atorvastatin Calcium 20 MG TAB PO SCH (21:42)
[2023-06-18 22:50] LABS: Sodium 123 mmol/L (136-145)
[2023-06-19] MEDS: cefTRIAXone\\ROCEPHIN 2 GM in Sodium Chloride 0.9% 100 ML IVPB SCH (03:44)
[2023-06-19 03:59] LABS: #Basophils 0.1 thou/uL (0.0-0.2); #Monocytes 1.2 thou/uL (0.11-0.59); #Neutrophils 9.7 thou/uL (1.40-6.50); %Basophils 0.6 % (0.0-1.0); %Eosinophils 0.3 % (0.0-10.0); %Lymphocytes 12.1 % (21.0-51.0); %Monocytes 9.6 % (0.0-10.0); Hematocrit 36.6 % (36.0-47.0); Hemoglobin 12.4 g/dL (12.0-16.0); Mean Corpuscular HGB CONC 33.9 g/dL (32.0-36.0); Mean Corpuscular Hemoglobin 32.1 pg (27.0-31.0); Mean Corpuscular Volume 94.8 fl (78.0-98.0); Mean Platelet Volume 10.9 fL (7.4-10.4); Platelet Count 287 10x3/uL (130-400); RBC Distribution Width 12.4 % (11.5-14.5); Red Blood Cell (RBC) Count 3.86 mill/uL (4.20-5.40); White Blood Cell (WBC) Count 12.6 10x3/uL (4.8-10.8)
[2023-06-19 04:25] LABS: Anion Gap 14 mmol/L (10-20); BUN (Urea Nitrogen) 8 mg/dL (9.8-20.1); Calc. Creatinine Clearance 83 mL/min (70-130); Calcium 8.6 mg/dL (7.8-10.44); Carbon Dioxide 23 mmol/L (23-31); Chloride 90 mmol/L (98-107); Estimated GFR 89; Glucose 105 mg/dL (83-110); Potassium 3.7 mmol/L (3.5-5.1); Sodium 123 mmol/L (136-145)
[2023-06-19] MEDS: Levothyroxine 150 MCG TAB PO SCH (06:06)
[2023-06-19] MEDS: Dronedarone HCl 400 MG TAB PO SCH ×2 (10:16→18:16)
[2023-06-19] MEDS: Rivaroxaban 10 MG TAB PO SCH (10:16)
[2023-06-19] MEDS: Aspirin 81 mg Enteric Coated Tablet PO SCH (10:16)
[2023-06-19] MEDS: Bisacodyl 5 MG TAB PO PRN (10:16)
[2023-06-19] MEDS: Lisinopril 10 MG TAB PO SCH (10:16)
[2023-06-19] MEDS: Famotidine 20 MG TAB PO SCH ×2 (10:16→20:41)
[2023-06-19] MEDS: hydrALAZINE 20 MG/ML VIAL SLOW IVP PRN ×2 (12:18→18:23)
[2023-06-19 16:55] LABS: Creatinine, Urine 77.1 mg/dL (47-110)
[2023-06-19] MEDS: Atorvastatin Calcium 20 MG TAB PO SCH (20:41)
[2023-06-20] MEDS: cefTRIAXone\\ROCEPHIN 2 GM in Sodium Chloride 0.9% 100 ML IVPB SCH (03:43)
[2023-06-20 04:20] LABS: #Basophils 0.1 thou/uL (0.0-0.2); #Eosinphils 0.1 thou/uL (0.0-0.7); #Monocytes 1.6 thou/uL (0.11-0.59); #Neutrophils 8.7 thou/uL (1.40-6.50); %Basophils 0.4 % (0.0-1.0); %Eosinophils 0.7 % (0.0-10.0); %Lymphocytes 13.4 % (21.0-51.0); %Monocytes 12.9 % (0.0-10.0); %Neutrophils 72.2 % (42.0-75.0); Hemoglobin 11.6 g/dL (12.0-16.0); Mean Corpuscular HGB CONC 35.2 g/dL (32.0-36.0); Mean Corpuscular Hemoglobin 32.3 pg (27.0-31.0); Mean Platelet Volume 11.5 fL (7.4-10.4); Platelet Count 296 10x3/uL (130-400); RBC Distribution Width 12.3 % (11.5-14.5); Red Blood Cell (RBC) Count 3.59 mill/uL (4.20-5.40); White Blood Cell (WBC) Count 12.1 10x3/uL (4.8-10.8)
[2023-06-20 04:26] LABS: Mean Corpuscular Volume 91.9 fl (78.0-98.0)
[2023-06-20 04:47] LABS: Anion Gap 12 mmol/L (10-20); BUN (Urea Nitrogen) 14 mg/dL (9.8-20.1); Calc. Creatinine Clearance 78 mL/min (70-130); Calcium 8.1 mg/dL (7.8-10.44); Carbon Dioxide 23 mmol/L (23-31); Chloride 86 mmol/L (98-107); Estimated GFR 87; Glucose 102 mg/dL (83-110); Potassium 3.1 mmol/L (3.5-5.1)
[2023-06-20 05:03] LABS: Sodium 118 mmol/L (136-145)
[2023-06-20] MEDS ORDERED: Electrolyte Replacement Protocol 1 EACH FS SCH (05:45)
[2023-06-20] MEDS: Levothyroxine 150 MCG TAB PO SCH (06:07)
[2023-06-20 06:22] LABS: Magnesium 1.8 mg/dL (1.6-2.6)
[2023-06-20] MEDS ORDERED: Sodium Chloride 3% 500 ML IVPB SCH ×2 (06:45→17:45)
[2023-06-20] MEDS ORDERED: Potassium Chloride 20 MEQ TAB PO SCH (08:00)
[2023-06-20] MEDS ORDERED: Magnesium 2 GM/50 ML(in water) 2 GM in Premix Bag 1 BAG IVPB SCH (08:00)
[2023-06-20 09:06] LABS: Anion Gap 14 mmol/L (10-20); BUN (Urea Nitrogen) 13 mg/dL (9.8-20.1); Calc. Creatinine Clearance 66 mL/min (70-130); Calcium 8.5 mg/dL (7.8-10.44); Carbon Dioxide 23 mmol/L (23-31); Chloride 83 mmol/L (98-107); Estimated GFR 86; Glucose 95 mg/dL (83-110); Potassium 3.6 mmol/L (3.5-5.1)
[2023-06-20] MEDS: Dronedarone HCl 400 MG TAB PO SCH ×2 (09:10→16:17)
[2023-06-20] MEDS: Aspirin 81 mg Enteric Coated Tablet PO SCH (09:10)
[2023-06-20] MEDS: Famotidine 20 MG TAB PO SCH ×3 (09:10→21:56)
[2023-06-20] MEDS: Lisinopril 10 MG TAB PO SCH (09:10)
[2023-06-20] MEDS: Rivaroxaban 10 MG TAB PO SCH (09:10)
[2023-06-20 09:13] LABS: Sodium 116 mmol/L (136-145)
[2023-06-20] MEDS: hydrALAZINE 20 MG/ML VIAL SLOW IVP PRN (09:32)
[2023-06-20] MEDS: Cosyntropin 250 MCG VIAL SLOW IVP SCH (12:23)
[2023-06-20 13:01] LABS: Anion Gap 14 mmol/L (10-20); BUN (Urea Nitrogen) 13 mg/dL (9.8-20.1); Calc. Creatinine Clearance 74 mL/min (70-130); Calcium 8.3 mg/dL (7.8-10.44); Carbon Dioxide 22 mmol/L (23-31); Chloride 87 mmol/L (98-107); Estimated GFR 88; Glucose 114 mg/dL (83-110); Potassium 3.7 mmol/L (3.5-5.1); Sodium 119 mmol/L (136-145)
[2023-06-20 16:43] LABS: Anion Gap 12 mmol/L (10-20); BUN (Urea Nitrogen) 13 mg/dL (9.8-20.1); Calc. Creatinine Clearance 70 mL/min (70-130); Calcium 7.8 mg/dL (7.8-10.44); Carbon Dioxide 22 mmol/L (23-31); Chloride 89 mmol/L (98-107); Estimated GFR 87; Glucose 108 mg/dL (83-110)
[2023-06-20 16:50] LABS: Sodium 119 mmol/L (136-145)
[2023-06-20 21:35] LABS: Sodium 118 mmol/L (136-145)
[2023-06-20] MEDS: Atorvastatin Calcium 20 MG TAB PO SCH ×2 (21:50→21:57)
[2023-06-21 01:35] LABS: Sodium 122 mmol/L (136-145)
[2023-06-21 03:31] LABS: #Eosinphils 0.1 thou/uL (0.0-0.7); #Monocytes 1.8 thou/uL (0.11-0.59); #Neutrophils 6.3 thou/uL (1.40-6.50); %Basophils 0.4 % (0.0-1.0); %Eosinophils 0.9 % (0.0-10.0); %Lymphocytes 21.4 % (21.0-51.0); %Monocytes 17.1 % (0.0-10.0); %Neutrophils 59.7 % (42.0-75.0); Hematocrit 32.3 % (36.0-47.0); Hemoglobin 11.1 g/dL (12.0-16.0); Mean Corpuscular HGB CONC 34.4 g/dL (32.0-36.0); Mean Corpuscular Volume 93.1 fl (78.0-98.0); Mean Platelet Volume 11.1 fL (7.4-10.4); Platelet Count 253 10x3/uL (130-400); RBC Distribution Width 12.7 % (11.5-14.5); Red Blood Cell (RBC) Count 3.47 mill/uL (4.20-5.40); White Blood Cell (WBC) Count 10.6 10x3/uL (4.8-10.8)
[2023-06-21] MEDS ORDERED: Sterile Water 10 ML ONE (03:34)
[2023-06-21] MEDS: cefTRIAXone\\ROCEPHIN 2 GM in Sodium Chloride 0.9% 100 ML IVPB SCH (03:39)
[2023-06-21 03:52] LABS: Anion Gap 12 mmol/L (10-20); BUN (Urea Nitrogen) 13 mg/dL (9.8-20.1); Calc. Creatinine Clearance 76 mL/min (70-130); Calcium 7.7 mg/dL (7.8-10.44); Carbon Dioxide 21 mmol/L (23-31); Cardiac Risk 2.1 (Less than 4.5); Chloride 94 mmol/L (98-107); Cholesterol 98 mg/dl (< 200 Desired); Estimated GFR 88; Glucose 90 mg/dL (83-110); HDL Cholesterol 47 mg/dL (>60 Neg Risk); LDL Cholesterol, Calculated 41 mg/dL; Potassium 3.8 mmol/L (3.5-5.1); Sodium 123 mmol/L (136-145); Triglycerides 51 mg/dL (Less than 150)
[2023-06-21] MEDS: Cosyntropin 250 MCG VIAL SLOW IVP SCH (03:53)
[2023-06-21 05:29] VITALS: BMI 25.0
[2023-06-21 06:12] LABS: Sodium 124 mmol/L (136-145)
[2023-06-21] MEDS: Levothyroxine 150 MCG TAB PO SCH (06:33)
[2023-06-21] MEDS: Famotidine 20 MG TAB PO SCH ×2 (07:40→21:54)
[2023-06-21] MEDS: Dronedarone HCl 400 MG TAB PO SCH ×2 (07:40→16:31)
[2023-06-21] MEDS: Rivaroxaban 10 MG TAB PO SCH (07:40)
[2023-06-21] MEDS: Aspirin 81 mg Enteric Coated Tablet PO SCH (07:40)
[2023-06-21 07:45] LABS: Sodium 124 mmol/L (136-145)
[2023-06-21 08:58] LABS: Magnesium 2.3 mg/dL (1.6-2.6)
[2023-06-21] MEDS ORDERED: Electrolyte Replacement Protocol FS PRN (14:45)
[2023-06-21 16:19] LABS: Potassium 3.9 mmol/L (3.5-5.1); Sodium 121 mmol/L (136-145)
[2023-06-21] MEDS: Atorvastatin Calcium 20 MG TAB PO SCH (21:54)
[2023-06-22] MEDS: cefTRIAXone\\ROCEPHIN 2 GM in Sodium Chloride 0.9% 100 ML IVPB SCH (03:45)
[2023-06-22 03:51] LABS: #Basophils 0.1 thou/uL (0.0-0.2); #Eosinphils 0.4 thou/uL (0.0-0.7); #Monocytes 1.6 thou/uL (0.11-0.59); %Basophils 0.7 % (0.0-1.0); %Eosinophils 4.5 % (0.0-10.0); %Lymphocytes 23.4 % (21.0-51.0); %Monocytes 17.2 % (0.0-10.0); %Neutrophils 53.8 % (42.0-75.0); Hematocrit 31.6 % (36.0-47.0); Hemoglobin 10.8 g/dL (12.0-16.0); Mean Corpuscular HGB CONC 34.2 g/dL (32.0-36.0); Mean Corpuscular Hemoglobin 32.5 pg (27.0-31.0); Mean Corpuscular Volume 95.2 fl (78.0-98.0); Platelet Count 270 10x3/uL (130-400); RBC Distribution Width 12.8 % (11.5-14.5); Red Blood Cell (RBC) Count 3.32 mill/uL (4.20-5.40); White Blood Cell (WBC) Count 9.4 10x3/uL (4.8-10.8)
[2023-06-22 04:14] LABS: Anion Gap 12 mmol/L (10-20); BUN (Urea Nitrogen) 13 mg/dL (9.8-20.1); Calc. Creatinine Clearance 76 mL/min (70-130); Calcium 7.8 mg/dL (7.8-10.44); Carbon Dioxide 23 mmol/L (23-31); Chloride 92 mmol/L (98-107); Estimated GFR 88; Glucose 89 mg/dL (83-110); Potassium 3.8 mmol/L (3.5-5.1); Sodium 123 mmol/L (136-145)
[2023-06-22] MEDS: Levothyroxine 150 MCG TAB PO SCH (09:09)
[2023-06-22] MEDS: Dronedarone HCl 400 MG TAB PO SCH ×2 (09:10→16:24)
[2023-06-22] MEDS: Famotidine 20 MG TAB PO SCH ×2 (09:10→20:12)
[2023-06-22] MEDS: Rivaroxaban 10 MG TAB PO SCH (09:10)
[2023-06-22] MEDS: Amlodipine 5 MG TAB PO SCH (09:10)
[2023-06-22] MEDS: Aspirin 81 mg Enteric Coated Tablet PO SCH (09:10)
[2023-06-22] MEDS: Atorvastatin Calcium 20 MG TAB PO SCH (20:12)
[2023-06-23] MEDS: cefTRIAXone\\ROCEPHIN 2 GM in Sodium Chloride 0.9% 100 ML IVPB SCH (03:41)
[2023-06-23] MEDS: Levothyroxine 150 MCG TAB PO SCH (04:30)
[2023-06-23 04:51] LABS: #Basophils 0.1 thou/uL (0.0-0.2); #Eosinphils 0.6 thou/uL (0.0-0.7); #Monocytes 1.9 thou/uL (0.11-0.59); #Neutrophils 6.7 thou/uL (1.40-6.50); %Basophils 0.8 % (0.0-1.0); %Eosinophils 5.5 % (0.0-10.0); %Lymphocytes 15.7 % (21.0-51.0); %Neutrophils 60.5 % (42.0-75.0); Hemoglobin 11.2 g/dL (12.0-16.0); Mean Corpuscular Hemoglobin 33.9 pg (27.0-31.0); Mean Platelet Volume 11.2 fL (7.4-10.4); Platelet Count 305 10x3/uL (130-400); RBC Distribution Width 12.7 % (11.5-14.5); White Blood Cell (WBC) Count 11.1 10x3/uL (4.8-10.8)
[2023-06-23 06:35] LABS: Anion Gap 14 mmol/L (10-20); BUN (Urea Nitrogen) 7 mg/dL (9.8-20.1); Calc. Creatinine Clearance 77 mL/min (70-130); Calcium 8.5 mg/dL (7.8-10.44); Carbon Dioxide 23 mmol/L (23-31); Chloride 94 mmol/L (98-107); Estimated GFR 88; Glucose 87 mg/dL (83-110); Potassium 3.7 mmol/L (3.5-5.1); Sodium 127 mmol/L (136-145)
[2023-06-23] MEDS: Amlodipine 5 MG TAB PO SCH (10:14)
[2023-06-23] MEDS: Famotidine 20 MG TAB PO SCH ×2 (10:14→20:10)
[2023-06-23] MEDS: Aspirin 81 mg Enteric Coated Tablet PO SCH (10:14)
[2023-06-23] MEDS: Rivaroxaban 10 MG TAB PO SCH (10:14)
[2023-06-23] MEDS: Dronedarone HCl 400 MG TAB PO SCH ×2 (10:30→17:18)
[2023-06-23] MEDS: Atorvastatin Calcium 20 MG TAB PO SCH (20:10)
[2023-06-23] MEDS: Acetaminophen 325 MG TAB PO PRN (20:10)
[2023-06-23] MEDS: Cefdinir 300 MG CAP PO SCH (20:10)
[2023-06-23] MEDS: Bisacodyl 5 MG TAB PO PRN (20:10)
[2023-06-24] MEDS: Acetaminophen 325 MG TAB PO PRN (04:54)
[2023-06-24] MEDS: Levothyroxine 150 MCG TAB PO SCH (04:54)
[2023-06-24] MEDS: Famotidine 20 MG TAB PO SCH ×2 (07:54→20:26)
[2023-06-24] MEDS: Cefdinir 300 MG CAP PO SCH ×2 (07:54→20:26)
[2023-06-24] MEDS: Amlodipine 5 MG TAB PO SCH (07:55)
[2023-06-24] MEDS: Dronedarone HCl 400 MG TAB PO SCH ×2 (07:55→15:59)
[2023-06-24] MEDS: Aspirin 81 mg Enteric Coated Tablet PO SCH (07:55)
[2023-06-24] MEDS: Rivaroxaban 10 MG TAB PO SCH (07:56)
[2023-06-24 08:59] LABS: Anion Gap 15 mmol/L (10-20); BUN (Urea Nitrogen) 7 mg/dL (9.8-20.1); Calc. Creatinine Clearance 72 mL/min (70-130); Calcium 8.3 mg/dL (7.8-10.44); Carbon Dioxide 22 mmol/L (23-31); Chloride 91 mmol/L (98-107); Estimated GFR 87; Glucose 135 mg/dL (83-110); Potassium 3.4 mmol/L (3.5-5.1); Sodium 125 mmol/L (136-145)
[2023-06-24] MEDS ORDERED: Sodium Chloride 1 GM TAB PO SCH (10:00)
[2023-06-24] MEDS ORDERED: Potassium Chloride 20 MEQ TAB PO SCH (10:00)
[2023-06-24 15:20] LABS: Potassium 3.8 mmol/L (3.5-5.1)
[2023-06-24] MEDS: Sodium Chloride 1 GM TAB PO SCH ×2 (15:59→20:27)
[2023-06-24] MEDS: Atorvastatin Calcium 20 MG TAB PO SCH (20:26)
[2023-06-25 04:24] LABS: Anion Gap 7 mmol/L (10-20); BUN (Urea Nitrogen) 9 mg/dL (9.8-20.1); Calc. Creatinine Clearance 70 mL/min (70-130); Calcium 8.1 mg/dL (7.8-10.44); Carbon Dioxide 25 mmol/L (23-31); Chloride 99 mmol/L (98-107); Estimated GFR 86; Glucose 90 mg/dL (83-110); Potassium 3.9 mmol/L (3.5-5.1); Sodium 127 mmol/L (136-145)
[2023-06-25] MEDS: hydrALAZINE 20 MG/ML VIAL SLOW IVP PRN (04:34)
[2023-06-25] MEDS: Levothyroxine 150 MCG TAB PO SCH (06:06)
[2023-06-25] MEDS: Cefdinir 300 MG CAP PO SCH ×2 (09:30→20:40)
[2023-06-25] MEDS: Amlodipine 5 MG TAB PO SCH (09:30)
[2023-06-25] MEDS: Famotidine 20 MG TAB PO SCH ×2 (09:31→20:40)
[2023-06-25] MEDS: Aspirin 81 mg Enteric Coated Tablet PO SCH (09:31)
[2023-06-25] MEDS: Sodium Chloride 1 GM TAB PO SCH ×3 (09:31→20:40)
[2023-06-25] MEDS: Rivaroxaban 10 MG TAB PO SCH (09:32)
[2023-06-25] MEDS: Dronedarone HCl 400 MG TAB PO SCH ×2 (09:33→15:47)
[2023-06-25] MEDS: Ondansetron PF 4 MG/2 ML Vial IVP PRN (16:04)
[2023-06-25] MEDS: Atorvastatin Calcium 20 MG TAB PO SCH (20:40)
[2023-06-26] MEDS: Levothyroxine 150 MCG TAB PO SCH (06:41)
[2023-06-26] MEDS: Amlodipine 5 MG TAB PO SCH (08:40)
[2023-06-26] MEDS: Aspirin 81 mg Enteric Coated Tablet PO SCH (08:40)
[2023-06-26] MEDS: Dronedarone HCl 400 MG TAB PO SCH ×2 (08:40→16:48)
[2023-06-26] MEDS: Cefdinir 300 MG CAP PO SCH ×2 (08:40→20:22)
[2023-06-26] MEDS: Sodium Chloride 1 GM TAB PO SCH ×3 (08:41→20:22)
[2023-06-26] MEDS: Famotidine 20 MG TAB PO SCH ×2 (08:41→20:22)
[2023-06-26] MEDS: Rivaroxaban 10 MG TAB PO SCH (08:41)
[2023-06-26] MEDS: Atorvastatin Calcium 20 MG TAB PO SCH (20:22)
[2023-06-27] MEDS: Levothyroxine 150 MCG TAB PO SCH (05:44)
[2023-06-27 06:04] LABS: #Basophils 0.1 thou/uL (0.0-0.2); #Eosinphils 0.8 thou/uL (0.0-0.7); #Monocytes 1.3 thou/uL (0.11-0.59); #Neutrophils 9.2 thou/uL (1.40-6.50); %Basophils 0.4 % (0.0-1.0); %Eosinophils 6.6 % (0.0-10.0); %Lymphocytes 9.6 % (21.0-51.0); %Monocytes 10.5 % (0.0-10.0); %Neutrophils 72.3 % (42.0-75.0); Hematocrit 31.7 % (36.0-47.0); Hemoglobin 10.8 g/dL (12.0-16.0); Mean Corpuscular HGB CONC 34.1 g/dL (32.0-36.0); Mean Corpuscular Hemoglobin 32.5 pg (27.0-31.0); Mean Corpuscular Volume 95.5 fl (78.0-98.0); Mean Platelet Volume 10.5 fL (7.4-10.4); Platelet Count 307 10x3/uL (130-400); RBC Distribution Width 12.9 % (11.5-14.5); Red Blood Cell (RBC) Count 3.32 mill/uL (4.20-5.40); White Blood Cell (WBC) Count 12.7 10x3/uL (4.8-10.8)
[2023-06-27 06:25] LABS: Anion Gap 10 mmol/L (10-20); BUN (Urea Nitrogen) 8 mg/dL (9.8-20.1); Calc. Creatinine Clearance 79 mL/min (70-130); Calcium 8.3 mg/dL (7.8-10.44); Carbon Dioxide 24 mmol/L (23-31); Chloride 97 mmol/L (98-107); Estimated GFR 90; Glucose 94 mg/dL (83-110); Potassium 3.7 mmol/L (3.5-5.1); Sodium 127 mmol/L (136-145)
[2023-06-27] MEDS: Aspirin 81 mg Enteric Coated Tablet PO SCH (09:03)
[2023-06-27] MEDS: Famotidine 20 MG TAB PO SCH ×2 (09:03→20:16)
[2023-06-27] MEDS: Amlodipine 5 MG TAB PO SCH (09:03)
[2023-06-27] MEDS: Cefdinir 300 MG CAP PO SCH ×2 (09:03→20:22)
[2023-06-27] MEDS: Rivaroxaban 10 MG TAB PO SCH (09:03)
[2023-06-27] MEDS: Dronedarone HCl 400 MG TAB PO SCH ×2 (09:04→16:36)
[2023-06-27] MEDS: Sodium Chloride 1 GM TAB PO SCH ×3 (09:04→20:16)
[2023-06-27] MEDS: Atorvastatin Calcium 20 MG TAB PO SCH (20:16)
[2023-06-28 06:56] LABS: Anion Gap 9 mmol/L (10-20); BUN (Urea Nitrogen) 6 mg/dL (9.8-20.1); Calc. Creatinine Clearance 80 mL/min (70-130); Calcium 8.9 mg/dL (7.8-10.44); Carbon Dioxide 24 mmol/L (23-31); Chloride 97 mmol/L (98-107); Estimated GFR 90; Glucose 92 mg/dL (83-110); Magnesium 1.8 mg/dL (1.6-2.6); Potassium 3.8 mmol/L (3.5-5.1); Sodium 126 mmol/L (136-145)
[2023-06-28] MEDS: Levothyroxine 150 MCG TAB PO SCH (07:17)
[2023-06-28] MEDS ORDERED: Magnesium 2 GM/50 ML(in water) 2 GM in Premix Bag 1 BAG IVPB SCH (08:00)
[2023-06-28] MEDS: Dronedarone HCl 400 MG TAB PO SCH ×2 (09:31→18:09)
[2023-06-28] MEDS: Sodium Chloride 1 GM TAB PO SCH ×3 (09:31→20:35)
[2023-06-28] MEDS: Rivaroxaban 10 MG TAB PO SCH (09:31)
[2023-06-28] MEDS: Cefdinir 300 MG CAP PO SCH ×2 (09:31→20:35)
[2023-06-28] MEDS: Famotidine 20 MG TAB PO SCH ×2 (09:32→20:35)
[2023-06-28] MEDS: Amlodipine 5 MG TAB PO SCH (09:32)
[2023-06-28] MEDS: Aspirin 81 mg Enteric Coated Tablet PO SCH (09:32)
[2023-06-28] MEDS: Atorvastatin Calcium 20 MG TAB PO SCH (20:35)
[2023-06-28] MEDS ORDERED: Melatonin 3 MG TAB PO PRN (20:50)
[2023-06-29] MEDS: Levothyroxine 150 MCG TAB PO SCH (05:25)
[2023-06-29 06:10] LABS: #Basophils 0.1 thou/uL (0.0-0.2); #Eosinphils 0.8 thou/uL (0.0-0.7); #Monocytes 1.7 thou/uL (0.11-0.59); %Basophils 0.7 % (0.0-1.0); %Eosinophils 6.5 % (0.0-10.0); %Lymphocytes 14.3 % (21.0-51.0); %Monocytes 13.6 % (0.0-10.0); %Neutrophils 64.4 % (42.0-75.0); Mean Corpuscular HGB CONC 32.4 g/dL (32.0-36.0); Mean Corpuscular Hemoglobin 32.2 pg (27.0-31.0); Mean Corpuscular Volume 99.4 fl (78.0-98.0); Mean Platelet Volume 10.6 fL (7.4-10.4); Platelet Count 310 10x3/uL (130-400); Red Blood Cell (RBC) Count 3.42 mill/uL (4.20-5.40); White Blood Cell (WBC) Count 12.4 10x3/uL (4.8-10.8)
[2023-06-29 06:33] LABS: Anion Gap 11 mmol/L (10-20); BUN (Urea Nitrogen) 11 mg/dL (9.8-20.1); Calc. Creatinine Clearance 73 mL/min (70-130); Calcium 8.2 mg/dL (7.8-10.44); Carbon Dioxide 21 mmol/L (23-31); Chloride 99 mmol/L (98-107); Estimated GFR 88; Glucose 101 mg/dL (83-110); Magnesium 2.1 mg/dL (1.6-2.6); Potassium 3.7 mmol/L (3.5-5.1); Sodium 127 mmol/L (136-145)
[2023-06-29] MEDS: Cefdinir 300 MG CAP PO SCH ×2 (09:51→20:09)
[2023-06-29] MEDS: Sodium Chloride 1 GM TAB PO SCH ×3 (09:52→20:04)
[2023-06-29] MEDS: Amlodipine 5 MG TAB PO SCH (09:52)
[2023-06-29] MEDS: Famotidine 20 MG TAB PO SCH ×2 (09:52→20:05)
[2023-06-29] MEDS: Dronedarone HCl 400 MG TAB PO SCH ×2 (09:53→17:42)
[2023-06-29] MEDS: Rivaroxaban 10 MG TAB PO SCH (09:53)
[2023-06-29] MEDS: Aspirin 81 mg Enteric Coated Tablet PO SCH (09:53)
[2023-06-29 15:54] LABS: Anion Gap 8 mmol/L (10-20); BUN (Urea Nitrogen) 13 mg/dL (9.8-20.1); Calc. Creatinine Clearance 55 mL/min (70-130); Calcium 8.5 mg/dL (7.8-10.44); Carbon Dioxide 26 mmol/L (23-31); Chloride 100 mmol/L (98-107); Estimated GFR 70; Glucose 110 mg/dL (83-110); Potassium 3.8 mmol/L (3.5-5.1); Sodium 130 mmol/L (136-145)
[2023-06-29] MEDS: Atorvastatin Calcium 20 MG TAB PO SCH (20:05)
[2023-06-30] MEDS: Levothyroxine 150 MCG TAB PO SCH (06:07)
[2023-06-30 07:28] LABS: Anion Gap 13 mmol/L (10-20); BUN (Urea Nitrogen) 9 mg/dL (9.8-20.1); Calc. Creatinine Clearance 75 mL/min (70-130); Calcium 8.5 mg/dL (7.8-10.44); Carbon Dioxide 23 mmol/L (23-31); Chloride 102 mmol/L (98-107); Estimated GFR 88; Glucose 96 mg/dL (83-110); Potassium 3.5 mmol/L (3.5-5.1); Sodium 134 mmol/L (136-145)
[2023-06-30] MEDS ORDERED: Potassium Chloride 20 MEQ TAB PO SCH (08:00)
[2023-06-30] MEDS ORDERED: Magnesium 2 GM/50 ML(in water) 2 GM in Premix Bag 1 BAG IVPB SCH (08:00)
[2023-06-30] MEDS: Rivaroxaban 10 MG TAB PO SCH (10:09)
[2023-06-30] MEDS: Amlodipine 5 MG TAB PO SCH (10:10)
[2023-06-30] MEDS: Dronedarone HCl 400 MG TAB PO SCH ×2 (10:10→16:41)
[2023-06-30] MEDS: Cefdinir 300 MG CAP PO SCH (10:10)
[2023-06-30] MEDS: Aspirin 81 mg Enteric Coated Tablet PO SCH (10:10)
[2023-06-30] MEDS: Sodium Chloride 1 GM TAB PO SCH (10:10)
[2023-06-30] MEDS: Famotidine 20 MG TAB PO SCH (10:11)
[2023-06-30 10:46] LABS: Anion Gap 11 mmol/L (10-20); BUN (Urea Nitrogen) 9 mg/dL (9.8-20.1); Calc. Creatinine Clearance 70 mL/min (70-130); Calcium 8.6 mg/dL (7.8-10.44); Carbon Dioxide 22 mmol/L (23-31); Chloride 103 mmol/L (98-107); Estimated GFR 87; Glucose 109 mg/dL (83-110); Potassium 3.3 mmol/L (3.5-5.1); Sodium 133 mmol/L (136-145)
[2023-06-30] MEDS ORDERED: hydrOXYzine 25 MG TAB PO PRN (12:40)
[2023-06-30 16:14] VITALS: BP 102/59; TEMP 97.7
[2023-06-30] MEDS ORDERED: Cefdinir 300 MG CAP PO SCH (16:15)
== END 2023-06-30 17:56 | disposition hospice, home (50) | DRG 643 ==
LOC: ERS 23:36 → ERHOLD 06-18 04:56 → SURG A 06-18 07:56 → 2NO 06-18 12:45 → CCU 06-20 08:11 → 2NO 06-21 18:02 → SURG A 06-25 22:04
PROVIDERS: ADMIT Student in an Organized Health Care Education/Training Program; ATTEND Family Medicine
DX: E22.2 Syndrome of inappropriate secretion of antidiuretic hormone (principal); G93.41 Metabolic encephalopathy; N39.0 Urinary tract infection, site not specified; J96.11 Chronic respiratory failure with hypoxia; Z51.5 Encounter for palliative care; E78.5 Hyperlipidemia, unspecified; I48.91 Unspecified atrial fibrillation; E03.9 Hypothyroidism, unspecified; R31.9 Hematuria, unspecified; D63.1 Anemia in chronic kidney disease; N18.2 Chronic kidney disease, stage 2 (mild); I44.0 Atrioventricular block, first degree; I12.9 Hypertensive chronic kidney disease with stage 1 through stage 4 chronic kidney disease, or unspecified chronic kidney disease; Z88.1 Allergy status to other antibiotic agents; Z88.0 Allergy status to penicillin; Z88.2 Allergy status to sulfonamides; Z91.09 Other allergy status, other than to drugs and biological substances; Z79.01 Long term (current) use of anticoagulants; Z79.82 Long term (current) use of aspirin; Z79.899 Other long term (current) drug therapy; Z90.49 Acquired absence of other specified parts of digestive tract; Z90.710 Acquired absence of both cervix and uterus
CPT/HCPCS: 36415; 36416; 51701; 70450; 71045; 71250; 74176; 74230; 80048; 80053; 80061; 80400; 81001; 82570; 83605; 83735; 83880; 83930; 83935; 84300; 84443; 84484; 85025; 87077; 87086; 87186; 93005; 93010; 96361; 96365; 96367; J0360; J0696; J0834; J2405; J3370-JW; J3475; J3490; J7131

== ENCOUNTER 2025-06-21 23:13 | Inpatient (IN) | payer MEDICARE, BC ==
[2025-06-21 23:43] LABS: #Basophils 0.06 10x3/uL (0.0-0.2); #Eosinophils 0.23 10x3/uL (0.0-0.7); #Monocytes 1.26 10x3/uL (0.11-0.59); #Neutrophils 5.45 10x3/uL (1.40-6.50); %Basophils 0.7 % (0.0-1.0); %Eosinophils 2.5 % (0.0-10.0); %Lymphocytes 22.2 % (21.0-51.0); %Monocytes 14.0 % (0.0-10.0); %Neutrophils 60.4 % (42.0-75.0); Hematocrit 32.9 % (36.0-47.0); Hemoglobin 11.0 g/dL (12.0-16.0); Mean Corpuscular Hemoglobin 30.3 pg (27.0-31.0); Mean Corpuscular Volume 90.6 fL (78.0-98.0); Platelet Count 270 10x3/uL (130-400); Red Blood Cell (RBC) Count 3.63 mill/uL (4.20-5.40); White Blood Cell (WBC) Count 9.02 10x3/uL (4.8-10.8)
[2025-06-21 23:54] LABS: ALT (SGPT) 18 U/L (Less than 34); AST (SGOT) 25 U/L (11-34); Albumin 3.7 g/dL (3.1-4.5); Alkaline Phosphatase 90 U/L (40-110); Anion Gap 10 mmol/L (10-20); BUN (Urea Nitrogen) 12 mg/dL (9.8-20.1); Bilirubin, Total 0.6 mg/dL (0.3-1.2); Calc. Creatinine Clearance 0 mL/min (70-130); Calcium 8.4 mg/dL (7.8-10.44); Carbon Dioxide 25 mmol/L (23-31); Chloride 90 mmol/L (98-107); Globulin 2.4 g/dL (2.4-3.5); Glucose 97 mg/dL (83-110); Lipase 37 U/L (8-78); Magnesium 2.3 mg/dL (1.6-2.6); Potassium 5.0 mmol/L (3.5-5.1); Sodium 120 mmol/L (136-145)
[2025-06-21 23:56] LABS: INR-International Normal Ratio 1.2; Prothrombin Time 15.8 sec (12.0-14.7)
[2025-06-21 23:57] LABS: PTT 34.7 sec (22.9-36.1)
[2025-06-22] MEDS ORDERED: Ondansetron PF 4 MG/2 ML Vial ONE (00:21)
[2025-06-22] MEDS ORDERED: Lidocaine 1% w/Epinephrine 1:100K 20 ML VIAL ONE (00:36)
[2025-06-22] MEDS ORDERED: Boostrix 0.5 ML (Tdap) VIAL (>/=7 yrs of age) ONE (01:19)
[2025-06-22] MEDS ORDERED: Ondansetron PF 4 MG/2 ML Vial IVP PRN (05:20)
[2025-06-22 06:44] VITALS: BMI 24.7
[2025-06-22 08:21] LABS: Anion Gap 12 mmol/L (10-20); BUN (Urea Nitrogen) 9 mg/dL (9.8-20.1); Calc. Creatinine Clearance 71 mL/min (70-130); Calcium 8.4 mg/dL (7.8-10.44); Carbon Dioxide 23 mmol/L (23-31); Chloride 92 mmol/L (98-107); Glucose 78 mg/dL (83-110); Potassium 4.7 mmol/L (3.5-5.1); Sodium 122 mmol/L (136-145)
[2025-06-22] MEDS ORDERED: Famotidine/PF 20 mg/2ml Vial ONE (09:05)
[2025-06-22] MEDS: Famotidine/PF 20 mg/2ml Vial SLOW IVP SCH (09:29)
[2025-06-22] MEDS: Famotidine 20 MG TAB PO SCH (09:29)
[2025-06-22 12:39] LABS: Anion Gap 12 mmol/L (10-20); BUN (Urea Nitrogen) 7 mg/dL (9.8-20.1); Calc. Creatinine Clearance 78 mL/min (70-130); Calcium 8.0 mg/dL (7.8-10.44); Carbon Dioxide 19 mmol/L (23-31); Chloride 94 mmol/L (98-107); Glucose 78 mg/dL (83-110); Potassium 4.8 mmol/L (3.5-5.1); Sodium 120 mmol/L (136-145)
[2025-06-22 13:57] LABS: Bacteria/HPF None Seen HPF (None Seen); CAUTI Indications for Culture Alt mental st,lethar; Glucose, Urine (Dipstick) Normal (Negative); Leukocyte Negative Leu/uL (Negative); Protein, Urine (Dipstick) Negative (Neg-Trace); RBC/HPF 0-3 HPF (0-3); Specific Gravity, Urine 1.008 (1.002-1.036)
[2025-06-22 14:02] LABS: Osmolality, Urine 337 mOsm/kg (50-1200)
[2025-06-22 14:04] LABS: Urine Culture Reflex No No
[2025-06-22 14:06] LABS: Potassium, Urine 14.6 mmol/L; Sodium, Urine 115.0 mmol/L (Not Available)
[2025-06-22 20:19] LABS: Anion Gap 12 mmol/L (10-20); BUN (Urea Nitrogen) 8 mg/dL (9.8-20.1); Calc. Creatinine Clearance 65 mL/min (70-130); Calcium 8.1 mg/dL (7.8-10.44); Carbon Dioxide 25 mmol/L (23-31); Chloride 92 mmol/L (98-107); Glucose 94 mg/dL (83-110); Potassium 4.5 mmol/L (3.5-5.1); Sodium 124 mmol/L (136-145)
[2025-06-22] MEDS: QUEtiapine 25 MG TAB PO SCH (21:12)
[2025-06-23 03:35] LABS: #Basophils Less than 0.03 10x3/uL (0.0-0.2); #Eosinophils 0.15 10x3/uL (0.0-0.7); #Monocytes 0.87 10x3/uL (0.11-0.59); #Neutrophils 6.23 10x3/uL (1.40-6.50); %Basophils 0.2 % (0.0-1.0); %Eosinophils 1.7 % (0.0-10.0); %Lymphocytes 17.2 % (21.0-51.0); %Monocytes 9.9 % (0.0-10.0); %Neutrophils 70.8 % (42.0-75.0); Hematocrit 33.8 % (36.0-47.0); Hemoglobin 11.2 g/dL (12.0-16.0); Mean Corpuscular Hemoglobin 30.2 pg (27.0-31.0); Mean Corpuscular Volume 91.1 fL (78.0-98.0); Platelet Count 238 10x3/uL (130-400); Red Blood Cell (RBC) Count 3.71 mill/uL (4.20-5.40); White Blood Cell (WBC) Count 8.80 10x3/uL (4.8-10.8)
[2025-06-23 03:57] LABS: ALT (SGPT) 14 U/L (Less than 34); AST (SGOT) 23 U/L (11-34); Albumin 3.2 g/dL (3.1-4.5); Alkaline Phosphatase 90 U/L (40-110); Anion Gap 11 mmol/L (10-20); BUN (Urea Nitrogen) 8 mg/dL (9.8-20.1); Bilirubin, Total 0.8 mg/dL (0.3-1.2); Calc. Creatinine Clearance 73 mL/min (70-130); Calcium 8.0 mg/dL (7.8-10.44); Carbon Dioxide 22 mmol/L (23-31); Chloride 93 mmol/L (98-107); Globulin 2.7 g/dL (2.4-3.5); Glucose 90 mg/dL (83-110); Potassium 4.4 mmol/L (3.5-5.1); Sodium 122 mmol/L (136-145)
[2025-06-23 04:18] LABS: Osmolality, Serum 256 mOsm/kg (280-301)
[2025-06-23 16:07] VITALS: BMI 24.7
[2025-06-23 18:59] LABS: Anion Gap 11 mmol/L (10-20); BUN (Urea Nitrogen) 9 mg/dL (9.8-20.1); Calc. Creatinine Clearance 54 mL/min (70-130); Calcium 8.4 mg/dL (7.8-10.44); Carbon Dioxide 24 mmol/L (23-31); Chloride 95 mmol/L (98-107); Glucose 132 mg/dL (83-110); Potassium 4.1 mmol/L (3.5-5.1); Sodium 126 mmol/L (136-145)
[2025-06-23] MEDS: Acetaminophen 325 MG TAB PO PRN (21:01)
[2025-06-23] MEDS: QUEtiapine 25 MG TAB PO SCH (21:01)
[2025-06-24 05:53] LABS: Anion Gap 15 mmol/L (10-20); BUN (Urea Nitrogen) 6 mg/dL (9.8-20.1); Calc. Creatinine Clearance 72 mL/min (70-130); Calcium 8.9 mg/dL (7.8-10.44); Carbon Dioxide 23 mmol/L (23-31); Chloride 99 mmol/L (98-107); Glucose 116 mg/dL (83-110); Potassium 4.2 mmol/L (3.5-5.1); Sodium 133 mmol/L (136-145)
[2025-06-24] MEDS: Acetaminophen 325 MG TAB PO SCH (10:56)
[2025-06-24] MEDS: Losartan 25 MG TAB PO SCH (10:57)
[2025-06-24] MEDS: QUEtiapine 25 MG TAB PO SCH (21:22)
[2025-06-25 06:26] LABS: Anion Gap 11 mmol/L (10-20); BUN (Urea Nitrogen) 5 mg/dL (9.8-20.1); Calc. Creatinine Clearance 82 mL/min (70-130); Calcium 8.4 mg/dL (7.8-10.44); Carbon Dioxide 25 mmol/L (23-31); Chloride 99 mmol/L (98-107); Glucose 90 mg/dL (83-110); Potassium 4.0 mmol/L (3.5-5.1); Sodium 131 mmol/L (136-145)
[2025-06-25] MEDS: Losartan 25 MG TAB PO SCH (09:08)
[2025-06-26 05:08] LABS: #Basophils 0.03 10x3/uL (0.0-0.2); #Eosinophils 0.38 10x3/uL (0.0-0.7); #Monocytes 0.91 10x3/uL (0.11-0.59); #Neutrophils 4.23 10x3/uL (1.40-6.50); %Basophils 0.4 % (0.0-1.0); %Eosinophils 5.1 % (0.0-10.0); %Lymphocytes 25.7 % (21.0-51.0); %Monocytes 12.1 % (0.0-10.0); %Neutrophils 56.2 % (42.0-75.0); Hematocrit 35.5 % (36.0-47.0); Hemoglobin 12.2 g/dL (12.0-16.0); Mean Corpuscular Hemoglobin 32.2 pg (27.0-31.0); Mean Corpuscular Volume 93.7 fL (78.0-98.0); Platelet Count 282 10x3/uL (130-400); Red Blood Cell (RBC) Count 3.79 mill/uL (4.20-5.40); White Blood Cell (WBC) Count 7.52 10x3/uL (4.8-10.8)
[2025-06-26 05:18] LABS: Anion Gap 11 mmol/L (10-20); BUN (Urea Nitrogen) 6 mg/dL (9.8-20.1); Calc. Creatinine Clearance 72 mL/min (70-130); Calcium 8.6 mg/dL (7.8-10.44); Carbon Dioxide 26 mmol/L (23-31); Chloride 97 mmol/L (98-107); Glucose 79 mg/dL (83-110); Potassium 4.3 mmol/L (3.5-5.1); Sodium 130 mmol/L (136-145)
[2025-06-26] MEDS: Sertraline 25 MG TAB PO SCH (10:00)
[2025-06-27] MEDS: Multivit, Therapeutic 1 TAB PO SCH (08:52)
[2025-06-27 14:42] VITALS: BP 118/67; TEMP 97.7
[2025-06-27] MEDS ORDERED: Mirtazapine 15 MG TAB PO SCH (21:00)
== END 2025-06-27 15:54 | DRG 644 ==
LOC: ERS 23:13 → ERHOLD 06-22 05:24 → MSONC 06-22 10:59
PROVIDERS: ADMIT Internal Medicine; ATTEND Hospitalist
PROC: 0T9B70Z Drainage of Bladder with Drainage Device, Via Natural or Artificial Opening (ICD-10-PCS; principal; 2025-06-22)
PROC: 2W3 Placement, Anatomical Regions, Immobilization (ICD-10-PCS; 2025-06-22)
DX: E22.2 Syndrome of inappropriate secretion of antidiuretic hormone (principal); F03.911 Unspecified dementia, unspecified severity, with agitation; F05 Delirium due to known physiological condition; I50.32 Chronic diastolic (congestive) heart failure; S62.615A Displaced fracture of proximal phalanx of left ring finger, initial encounter for closed fracture; I48.0 Paroxysmal atrial fibrillation; E03.9 Hypothyroidism, unspecified; S01.01XA Laceration without foreign body of scalp, initial encounter; I11.0 Hypertensive heart disease with heart failure; R13.10 Dysphagia, unspecified; R33.9 Retention of urine, unspecified; G47.00 Insomnia, unspecified; W18.30XA Fall on same level, unspecified, initial encounter; E87.8 Other disorders of electrolyte and fluid balance, not elsewhere classified; Y92.041 Bathroom in boarding-house as the place of occurrence of the external cause; Z88.1 Allergy status to other antibiotic agents; Z88.0 Allergy status to penicillin; Z88.8 Allergy status to other drugs, medicaments and biological substances; Z91.041 Radiographic dye allergy status; Z90.89 Acquired absence of other organs; Z90.49 Acquired absence of other specified parts of digestive tract; Z98.890 Other specified postprocedural states; Z92.3 Personal history of irradiation
CPT/HCPCS: 36415; 36416; 70450; 71045; 72125; 72170; 74176; 80048; 80053; 81001; 82436; 82533; 83690; 83735; 83930; 83935; 84133; 84300; 84443; 84484; 85025; 85610; 85730; 86850; 86900; 86901; 87040; 90471; 90715; 93005; 94760; 96374; 96375; G0390; J1308; J1630; J2060; J2270; J2405; J7030

== ENCOUNTER 2025-07-18 05:45 | Emergency (ER) | payer MEDICARE, BC ==
[2025-07-18 06:36] LABS: #Basophils 0.04 10x3/uL (0.0-0.2); #Eosinophils Less than 0.03 10x3/uL (0.0-0.7); #Monocytes 0.69 10x3/uL (0.11-0.59); #Neutrophils 9.64 10x3/uL (1.40-6.50); %Basophils 0.4 % (0.0-1.0); %Eosinophils 0.1 % (0.0-10.0); %Lymphocytes 8.3 % (21.0-51.0); %Monocytes 6.1 % (0.0-10.0); %Neutrophils 84.6 % (42.0-75.0); Hematocrit 33.3 % (36.0-47.0); Hemoglobin 11.0 g/dL (12.0-16.0); Mean Corpuscular Hemoglobin 30.4 pg (27.0-31.0); Mean Corpuscular Volume 92.0 fL (78.0-98.0); Platelet Count 302 10x3/uL (130-400); Red Blood Cell (RBC) Count 3.62 mill/uL (4.20-5.40); White Blood Cell (WBC) Count 11.38 10x3/uL (4.8-10.8)
[2025-07-18 06:39] LABS: Bacteria/HPF None Seen HPF (None Seen); CAUTI Indications for Culture Alt mental st,lethar; Glucose, Urine (Dipstick) Normal (Negative); Leukocyte Negative Leu/uL (Negative); Protein, Urine (Dipstick) Negative (Neg-Trace); RBC/HPF 0-3 HPF (0-3); Specific Gravity, Urine 1.010 (1.002-1.036); WBC/HPF 0-3 HPF (0-3)
[2025-07-18 06:49] LABS: Urine Culture Reflex No No
[2025-07-18 06:52] LABS: ALT (SGPT) 16 U/L (Less than 34); AST (SGOT) 24 U/L (11-34); Albumin 3.3 g/dL (3.1-4.5); Alkaline Phosphatase 121 U/L (40-110); Anion Gap 15 mmol/L (10-20); BUN (Urea Nitrogen) 11 mg/dL (9.8-20.1); Bilirubin, Total 0.7 mg/dL (0.3-1.2); Calc. Creatinine Clearance 0 mL/min (70-130); Calcium 8.6 mg/dL (7.8-10.44); Carbon Dioxide 24 mmol/L (23-31); Chloride 95 mmol/L (98-107); Globulin 2.8 g/dL (2.4-3.5); Glucose 119 mg/dL (83-110); Potassium 4.0 mmol/L (3.5-5.1); Sodium 130 mmol/L (136-145)
[2025-07-18] MEDS ORDERED: Ibuprofen 800 MG TAB ONE (07:29)
== END 2025-07-18 08:01 | disposition home or self-care (01) ==
LOC: ERS 05:45
DX: R41.82 Altered mental status, unspecified (principal); R50.9 Fever, unspecified; I10 Essential (primary) hypertension; E78.5 Hyperlipidemia, unspecified; I48.91 Unspecified atrial fibrillation; Z79.899 Other long term (current) drug therapy
CPT/HCPCS: 51701; 70450; 80053; 81001; 83605; 83690; 84484; 85025; 93005